=== PATIENT | female | born 1980 | race American Indian/Alaskan Native ===

== ENCOUNTER 2018-03-31 17:08 | Emergency (ER) | payer OTHER, SELFPAY ==
[2018-03-31] VITALS (15 sets, daily range): BP systolic 63–128; BP diastolic 42–94; PULSE 80–108; RESP 18–33; TEMP 36.6; O2SAT 96–100; BMI 26.9
[2018-03-31] MEDS: SODIUM CHLORIDE 0.9% 1,000 ML 1000 ML IV ×2 (17:25→17:55)
[2018-03-31 17:26] LABS: Add Manual Diff / Slide Review NO; Basophils Percent Auto 0.6 % (0-2); Eosinophils Percent Auto 0.6 % (2-4); Hemoglobin 12.7 g/dL (12.0-16.0); Lymphocytes Percent Auto 33.5 % (25-40); Mean Corpuscular HGB Conc 35.4 % (30-36); Mean Corpuscular Hemoglobin 30.8 PG (26-34); Mean Corpuscular Volume 86.9 fL (80-100); Monocytes Percent Auto 4.8 % (3-14); Neutrophils Absolute Auto 5900 /uL (3000-5900); Neutrophils Percent Auto 60.5 % (50-75); Platelet Count 185 X10^3/uL (150-400); Red Blood Cell Count 4.14 X10^6/uL (4.0-5.2); Red Cell Distribution Width 14.3 % (11.6-14.8); White Blood Cell Count 9.8 X10^3/uL (4.5-11.0)
[2018-03-31 17:37] LABS: HEMOLYSIS 16 (0-50)
[2018-03-31 17:38] LABS: BUN Creatinine Ratio 2.5 (6-22); Calcium 7.7 mg/dL (8.4-10.2); Estimated Glomerular Filt Rate > 60.0 mL/min (>60); Glucose 156 mg/dL (70-100); Sodium 130 mmol/L (137-145)
--- NOTE | 2018-03-31 17:39 | ED.SYNCOPE ---
HPI - Syncope <Lima Ervin DO - Last Filed: 04/01/18 07:20> General Chief Complaint: Syncope Stated Complaint: Possible Seizure Time Seen by Provider: 03/31/18 17:12 Source: patient and EMS Limitations: no limitations History of Present Illness HPI narrative: Patient is a 37-year-old female who presents after syncopal episode at a baseball game. She was outside for a number of hours not drinking enough water. She felt extremely faint he does not remember passing out but she did brief stay. There may have been on small seizure like activity however it did not last long. EMS is blood pressure was quite low this systolic in the 60s. She admits to drinking alcohol evening quite a bit. She also does not know when her last menstrual period was she thinks it was about 2 months ago but not sure. She denies any abdominal pain. Related Data Previous Rx's Medication Instructions Recorded sertraline 50 mg PO QDAY #30 tab 08/10/16 norethindrone ac-eth estradiol 1 tab PO Q DAY #3 pac 06/25/17 [Loestrin 1.5/30 (21)] doxycycline hyclate 100 mg PO BID #14 cap 01/22/18 Allergies Allergy/AdvReac Type Severity Reaction Status Date / Time Sulfa (Sulfonamide Allergy Unknown Verified 03/31/18 18:06 Antibiotics) [SULFA (SULFONAMIDE ANTIBIOTICS)] Review of Systems <Lima Ervin DO - Last Filed: 04/01/18 07:20> Review of Systems All systems reviewed & are unremarkable except as noted in HPI and below Constitutional Denies chills, Denies excessive sweating, Denies fatigue, Denies frequent falls, Denies night sweats and Reports weakness Eyes Denies change in vision, Denies eye discharge, Denies irritation and Denies loss of vision Cardiovascular Reports system reviewed and no additional complaints, except as docu, Reports syncope, Denies irregular heart rhythm, Denies dyspnea and Denies dyspnea on exertion Respiratory Denies cough, Denies dyspnea, Denies dyspnea on exertion and Denies wheezing Gastrointestinal Gastrointestinal: Denies abdominal pain, Denies change in bowel habits, Denies diarrhea, Denies nausea and Denies vomiting Musculoskeletal Denies back pain, Denies muscle weakness, Denies numbness and Denies tingling Integumentary/Breasts Denies pruritus, Denies erythema, Denies rash and Denies wounds Neurologic Reports syncope, Denies frequent falls, Denies loss of vision, Denies numbness, Denies tingling and Reports weakness Endocrine Denies excessive sweating and Denies fatigue Allergic/Immunologic Denies wheezing Exam <Lima Ervin DO - Last Filed: 04/01/18 07:20> Initial Vital Signs Initial Vital Signs: Vital Signs Temperature 97.8 F 03/31/18 17:18 Pulse Rate 93 H 03/31/18 17:18 Respiratory Rate 18 03/31/18 17:18 Blood Pressure 110/72 03/31/18 17:18 Pulse Oximetry 100 03/31/18 17:18 Const General: cooperative and well developed Nutritional Appearance: well nourished Orientation: alert, awake, oriented x3 and not confused [facility] Head: normal to inspection, normocephalic and atraumatic Eyes Alignment and Position: alignment normal Eyelids: eyelids normal Conjunctivae: conjunctivae normal Resp Effort & Inspection: normal respiratory effort, able to speak in complete sentences, no respiratory distress and no use of accessory muscles Auscultation: clear to auscultation bilaterally, no rales, no rhonchi and no wheezes Cardio Rate: regular rate Rhythm: regular rhythm Heart Sounds: no click, no gallops, no murmurs and no rubs Pulses: normal peripheral pulses GI Inspection: non-distended Palpation: soft, no hepatosplenomegaly, No guarding, No pulsatile mass and No tender Auscultation: normal bowel sounds Neuro General: alert, oriented x3, gait normal and no focal motor deficits Cranial Nerves: CN's II-XI intact bilaterally and sense of smell intact Speech: speech normal Motor: muscle tone normal throughout and strength 5/5 throughout Sensory Exam: no sensory deficits noted <Navjot Bar DO - Last Filed: 04/01/18 02:55> Initial Vital Signs Initial Vital Signs: Vital Signs Temperature 97.8 F 03/31/18 17:18 Pulse Rate 93 H 03/31/18 17:18 Respiratory Rate 18 03/31/18 17:18 Blood Pressure 110/72 03/31/18 17:18 Pulse Oximetry 100 03/31/18 17:18 Course <Lima Ervin DO - Last Filed: 04/01/18 07:20> Orders Ordered: ED Orders 03/31/18 23:08 Basic Metabolic Panel Stat Discontinued Medications Sodium Chloride (Normal Saline 0.9%) 1,000 mls @ 1,000 mls/hr IV CONT ALEC Last Infusion: 03/31/18 17:55 Dose: 0 mls/hr Admin: 03/31/18 17:25 Dose: 1,000 mls/hr Sodium Chloride (Normal Saline 0.9%) 1,000 mls @ 1,000 mls/hr IV BOLUS ONE Stop: 03/31/18 18:36 Last Infusion: 03/31/18 18:04 Dose: 0 mls/hr Admin: 03/31/18 17:55 Dose: 1,000 mls/hr Potassium Chloride 40 meq/ (Sodium Chloride) 520 mls @ 130 mls/hr IV NOW ONE Stop: 03/31/18 17:40 Last Infusion: 03/31/18 23:39 Dose: 0 mls/hr Infusion: 03/31/18 19:59 Dose: 100 mls/hr Admin: 03/31/18 18:30 Dose: 130 mls/hr Sodium Chloride (Normal Saline 0.9%) 1,000 mls @ 200 mls/hr IV BOLUS ONE Stop: 03/31/18 23:23 Last Infusion: 03/31/18 23:41 Dose: 0 mls/hr Admin: 03/31/18 18:31 Dose: 200 mls/hr Lactated Ringer's (Lactated Ringers) 1,000 mls @ 1,000 mls/hr IV BOLUS ONE Stop: 03/31/18 19:48 Last Infusion: 03/31/18 19:56 Dose: 0 mls/hr Admin: 03/31/18 19:24 Dose: 1,000 mls/hr Lactated Ringer's (Lactated Ringers) 1,000 mls @ 1,000 mls/hr IV BOLUS ONE Stop: 03/31/18 20:51 Last Infusion: 03/31/18 22:05 Dose: 0 mls/hr Admin: 03/31/18 20:06 Dose: 1,000 mls/hr Ondansetron HCl (Zofran) 4 mg IV NOW ONE Stop: 03/31/18 17:40 Last Admin: 03/31/18 17:54 Dose: 4 mg Potassium Chloride (Klor-Con M20) 40 meq PO NOW ONE Stop: 03/31/18 17:40 Last Admin: 03/31/18 20:04 Dose: 40 meq Potassium Chloride (Potassium Chloride) 40 meq PO NOW ONE Stop: 03/31/18 20:37 Last Admin: 03/31/18 20:43 Dose: 40 meq Vital Signs - 8 hr 03/31/18 23:31 Pulse Rate 84 Respiratory Rate 24 Blood Pressure [Left Arm] 128/94 H Pulse Oximetry 96 <Navjot Bar, DO - Last Filed: 04/01/18 02:55> Orders Ordered: ED Orders 03/31/18 23:08 Basic Metabolic Panel Stat Discontinued Medications Sodium Chloride (Normal Saline 0.9%) 1,000 mls @ 1,000 mls/hr IV CONT ALEC Last Infusion: 03/31/18 17:55 Dose: 0 mls/hr Admin: 03/31/18 17:25 Dose: 1,000 mls/hr Sodium Chloride (Normal Saline 0.9%) 1,000 mls @ 1,000 mls/hr IV BOLUS ONE Stop: 03/31/18 18:36 Last Infusion: 03/31/18 18:04 Dose: 0 mls/hr Admin: 03/31/18 17:55 Dose: 1,000 mls/hr Potassium Chloride 40 meq/ (Sodium Chloride) 520 mls @ 130 mls/hr IV NOW ONE Stop: 03/31/18 17:40 Last Infusion: 03/31/18 23:39 Dose: 0 mls/hr Infusion: 03/31/18 19:59 Dose: 100 mls/hr Admin: 03/31/18 18:30 Dose: 130 mls/hr Sodium Chloride (Normal Saline 0.9%) 1,000 mls @ 200 mls/hr IV BOLUS ONE Stop: 03/31/18 23:23 Last Infusion: 03/31/18 23:41 Dose: 0 mls/hr Admin: 03/31/18 18:31 Dose: 200 mls/hr Lactated Ringer's (Lactated Ringers) 1,000 mls @ 1,000 mls/hr IV BOLUS ONE Stop: 03/31/18 19:48 Last Infusion: 03/31/18 19:56 Dose: 0 mls/hr Admin: 03/31/18 19:24 Dose: 1,000 mls/hr Lactated Ringer's (Lactated Ringers) 1,000 mls @ 1,000 mls/hr IV BOLUS ONE Stop: 03/31/18 20:51 Last Infusion: 03/31/18 22:05 Dose: 0 mls/hr Admin: 03/31/18 20:06 Dose: 1,000 mls/hr Ondansetron HCl (Zofran) 4 mg IV NOW ONE Stop: 03/31/18 17:40 Last Admin: 03/31/18 17:54 Dose: 4 mg Potassium Chloride (Klor-Con M20) 40 meq PO NOW ONE Stop: 03/31/18 17:40 Last Admin: 03/31/18 20:04 Dose: 40 meq Potassium Chloride (Potassium Chloride) 40 meq PO NOW ONE Stop: 03/31/18 20:37 Last Admin: 03/31/18 20:43 Dose: 40 meq Reevaluation(s) Reevaluation #1: I have personally interviewed and examined the patient and agree with Dr. Ervin's assessment and plan. She feels a bit better but still has not produced urine. We are hanging are 4th bag of fluid and switched to lactated Ringer's for more balanced fluid approach. She was then able to drink the oral potassium and states it made her throat feel abnormal. She is able to swallow water without difficulty. She has no tongue, lip or throat swelling. She has no difficulty breathing or abnormal rash. Will continue to monitor Time: 20:35 Vital Signs - 8 hr 03/31/18 23:31 Pulse Rate 84 Respiratory Rate 24 Blood Pressure [Left Arm] 128/94 H Pulse Oximetry 96 MDM - Syncope <Lima Ervin, - Last Filed: 04/01/18 07:20> Lab Data Attestation: I reviewed the patient's lab results. Result diagrams: 03/31/18 17:11 03/31/18 23:08 Lab Results 03/31/18 03/31/18 03/31/18 Range/Units 17:11 17:11 17:11 WBC 9.8 (4.5-11.0) X10^3/uL RBC 4.14 (4.0-5.2) X10^6/uL Hgb 12.7 (12.0-16.0) g/dL Hct 36.0 (36-46) % MCV 86.9 (80-100) fL MCH 30.8 (26-34) PG MCHC 35.4 (30-36) % RDW 14.3 (11.6-14.8) % Plt Count 185 (150-400) X10^3/uL Neut % (Auto) 60.5 (50-75) % Lymph % (Auto) 33.5 (25-40) % Burnet % (Auto) 4.8 (3-14) % Eos % (Auto) 0.6 L (2-4) % Baso % (Auto) 0.6 (0-2) % Neut # (Auto) 5900 (7006-9940) /uL Sodium 130 L (137-145) mmol/L Potassium 2.6 L* (3.4-5.1) mmol/L Chloride 87.0 L (98-107) mmol/L Carbon Dioxide 24.0 (22-32) mmol/L BUN 2.0 L (7-17) mg/dL Creatinine 0.80 (0.52-1.04) mg/dL Estimated GFR > 60.0 (>60) mL/min BUN/Creatinine Ratio 2.5 L (6-22) Glucose 156 H (70-100) mg/dL Calcium 7.7 L (8.4-10.2) mg/dL Serum , Qual Negative (Negative) 03/31/18 Range/Units 23:08 WBC (4.5-11.0) X10^3/uL RBC (4.0-5.2) X10^6/uL Hgb (12.0-16.0) g/dL Hct (36-46) % MCV (80-100) fL MCH (26-34) PG MCHC (30-36) % RDW (11.6-14.8) % Plt Count (150-400) X10^3/uL Neut % (Auto) (50-75) % Lymph % (Auto) (25-40) % Burnet % (Auto) (3-14) % Eos % (Auto) (2-4) % Baso % (Auto) (0-2) % Neut # (Auto) (7151-5862) /uL Sodium 130 L (137-145) mmol/L Potassium 4.1 D (3.4-5.1) mmol/L Chloride 98.0 (98-107) mmol/L Carbon Dioxide 21.0 L (22-32) mmol/L BUN < 2.0 L (7-17) mg/dL Creatinine 0.50 L (0.52-1.04) mg/dL Estimated GFR > 60.0 (>60) mL/min BUN/Creatinine Ratio 4.0 L (6-22) Glucose 94 (70-100) mg/dL Calcium 6.8 L (8.4-10.2) mg/dL Serum , Qual (Negative) ECG Data Attestation: I personally reviewed and interpreted this ECG as follows: Prior ECG tracings: not available for review Interpretation: Normal sinus rhythm rate 81 and normal intervals no ST changes normal T-wave changes <Navjot Bar DO - Last Filed: 04/01/18 02:55> Lab Data Lab Results 03/31/18 03/31/18 03/31/18 Range/Units 17:11 17:11 17:11 WBC 9.8 (4.5-11.0) X10^3/uL RBC 4.14 (4.0-5.2) X10^6/uL Hgb 12.7 (12.0-16.0) g/dL Hct 36.0 (36-46) % MCV 86.9 (80-100) fL MCH 30.8 (26-34) PG MCHC 35.4 (30-36) % RDW 14.3 (11.6-14.8) % Plt Count 185 (150-400) X10^3/uL Neut % (Auto) 60.5 (50-75) % Lymph % (Auto) 33.5 (25-40) % Burnet % (Auto) 4.8 (3-14) % Eos % (Auto) 0.6 L (2-4) % Baso % (Auto) 0.6 (0-2) % Neut # (Auto) 5900 (7659-5689) /uL Sodium 130 L (137-145) mmol/L Potassium 2.6 L* (3.4-5.1) mmol/L Chloride 87.0 L (98-107) mmol/L Carbon Dioxide 24.0 (22-32) mmol/L BUN 2.0 L (7-17) mg/dL Creatinine 0.80 (0.52-1.04) mg/dL Estimated GFR > 60.0 (>60) mL/min BUN/Creatinine Ratio 2.5 L (6-22) Glucose 156 H (70-100) mg/dL Calcium 7.7 L (8.4-10.2) mg/dL Serum , Qual Negative (Negative) 03/31/18 Range/Units 23:08 WBC (4.5-11.0) X10^3/uL RBC (4.0-5.2) X10^6/uL Hgb (12.0-16.0) g/dL Hct (36-46) % MCV (80-100) fL MCH (26-34) PG MCHC (30-36) % RDW (11.6-14.8) % Plt Count (150-400) X10^3/uL Neut % (Auto) (50-75) % Lymph % (Auto) (25-40) % Burnet % (Auto) (3-14) % Eos % (Auto) (2-4) % Baso % (Auto) (0-2) % Neut # (Auto) (2924-3165) /uL Sodium 130 L (137-145) mmol/L Potassium 4.1 D (3.4-5.1) mmol/L Chloride 98.0 (98-107) mmol/L Carbon Dioxide 21.0 L (22-32) mmol/L BUN < 2.0 L (7-17) mg/dL Creatinine 0.50 L (0.52-1.04) mg/dL Estimated GFR > 60.0 (>60) mL/min BUN/Creatinine Ratio 4.0 L (6-22) Glucose 94 (70-100) mg/dL Calcium 6.8 L (8.4-10.2) mg/dL Serum , Qual (Negative) Discharge Plan Departure Patient Disposition: Home, Self-Care Clinical Impression: Dehydration, Acute hypokalemia Discharge Date/Time: 03/31/18 23:43 Interventions: ED Discharge Assessment Last Done: 03/31/18 23:42 Instructions: DI for Dehydration -- Adult Prescriptions: No Action sertraline 50 MG tablet 50 mg PO QDAY Qty: 30 RF: 0 norethindrone ac-eth estradiol [Loestrin 1.5/30 (21)] 1.5 MG/30 MCG tablet 1 tab PO Q DAY Qty: 3 RF: 4 doxycycline hyclate 100 MG capsule 100 mg PO BID Qty: 14 RF: 0 ED Cosign/Signout <Lima Ervin DO - Last Filed: 04/01/18 07:20> Sign Out Provider Sign Out Attestation: Patient signed out to Dr. Bar. Patient is having potassium replaced, and continuing all monitored and IV fluids. She is still not urinated after 2 L. she is not .
[2018-03-31 17:40] LABS: Potassium 2.6 mmol/L (3.4-5.1)
[2018-03-31 17:53] LABS: Pregnancy Test Serum,Qual Negative (Negative)
[2018-03-31] MEDS: ONDANSETRON 4 MG/2 ML INJ IV (17:54)
[2018-03-31] MEDS: POTASSIUM CHLORIDE 40 MEQ in SODIUM CHLORIDE 0.9% 500 ML 130 ML IV (18:30)
[2018-03-31] MEDS: SODIUM CHLORIDE 0.9% 1,000 ML 200 ML IV (18:31)
[2018-03-31] MEDS: LACTATED RINGERS 1,000 ML 1000 ML IV ×2 (19:24→20:06)
[2018-03-31] MEDS: POTASSIUM CHLORIDE 20 MEQ TAB 40 MEQ PO (20:04)
--- NOTE | 2018-03-31 20:29 | PC.NURSE ---
pt unable to take po medication. reports always having difficulty swallowing pills. reports feeling throat closing up now making it more difficult to swallow pills. provider notified. pt is able to swallow water. no pitch change in voice, no visible swelling in back of throat.
[2018-03-31] MEDS: POTASSIUM CHLORIDE 20 MEQ/15 ML UDC 40 MEQ PO (20:43)
--- NOTE | 2018-03-31 22:29 | PC.NURSE ---
pt ambulated to the restroom and voided. steady gate, slow pace, no assistive devices.
[2018-03-31 23:24] LABS: Calcium 6.8 mg/dL (8.4-10.2); Estimated Glomerular Filt Rate > 60.0 mL/min (>60); Glucose 94 mg/dL (70-100); HEMOLYSIS < 15 (0-50); Potassium 4.1 mmol/L (3.4-5.1); Sodium 130 mmol/L (137-145)
[2018-03-31 23:25] LABS: Blood Urea Nitrogen < 2.0 mg/dL (7-17)
== END 2018-03-31 23:43 | disposition home or self-care (01) ==
PROVIDERS: Emergency Medicine; Emergency Provider Emergency Medicine
DX: E86.0 Dehydration (principal); E87.6 Hypokalemia
CPT/HCPCS: 36415; 80048; 82962; 84703; 85025; 93005; 96365; 96366; 99284; 99285; J2405; J3480

== ENCOUNTER 2018-11-09 18:20 | Emergency (ER) | payer OTHER, SELFPAY ==
[2018-11-09 18:32] VITALS: BP 127/81; PULSE 64; RESP 16; TEMP 37; O2SAT 100; BMI 24.1
--- NOTE | 2018-11-09 19:08 | PC.NURSE ---
Assisted Dr Bar for pelvic exam to remove tampon. Pt tolerated the procedure and old tampon removed.
--- NOTE | 2018-11-09 23:32 | ED_ITS ---
HPI - Female Genitourinary General Chief complaint: Urogenital-Female Stated complaint: women problems Time Seen by Provider: 11/09/18 18:50 Source: patient Mode of arrival: ambulatory Limitations: no limitations History of Present Illness HPI Narrative: 38-year-old, nonsmoking otherwise healthy female presents by herself to the emergency department for evaluation of pelvic discomfort. She had a tampon placed and had for gotten was there proceed to have intercourse. This was yesterday. She denies any vaginal bleeding or discharge. She denies any back pain or systemic findings such as fever, chills, rash or vomiting. She was unable to remove it at home. She denies pain, but can feel that the tampon is still there. Onset (ago): day(s) Patient : No Associated symptoms: denies other symptoms Related Data Home Medications Medication Instructions Recorded Confirmed lisinopril 11/09/18 lisinopril 11/09/18 Previous Rx's Medication Instructions Recorded sertraline 50 mg PO QDAY #30 tab 08/10/16 doxycycline hyclate 100 mg PO BID #14 cap 01/22/18 norethindrone acetate-ethinyl 1 tab PO Q DAY #3 pac 05/07/18 estradiol 1.5 mg-30 mcg tablet Allergies Allergy/AdvReac Type Severity Reaction Status Date / Time Sulfa (Sulfonamide Allergy Unknown Verified 11/09/18 18:36 Antibiotics) [SULFA (SULFONAMIDE ANTIBIOTICS)] Review of Systems Review of Systems All systems reviewed & are unremarkable except as noted in HPI and below Constitutional Denies chills, Denies fever(s), Denies lethargy and Denies weakness Eyes Denies change in vision, Denies eye discharge, Denies irritation and Denies loss of vision ENT Ears, Nose, Mouth, and Throat: Denies change in voice, Denies neck pain and Denies sore throat Cardiovascular Denies chest pain, Denies irregular heart rhythm, Denies lightheadedness, Denies palpitations, Denies dyspnea, Denies dyspnea on exertion and Denies orthopnea Respiratory Denies cough, Denies dyspnea, Denies dyspnea on exertion and Denies wheezing Gastrointestinal Gastrointestinal: Denies abdominal pain, Denies change in bowel habits, Denies diarrhea, Denies nausea and Denies vomiting Genitourinary Denies hematuria, Denies flank pain, Denies urinary incontinence and Denies urinary urgency Musculoskeletal Denies neck pain Integumentary/Breasts Denies pruritus, Denies erythema, Denies rash and Denies wounds Neurologic Denies confusion, Denies loss of vision and Denies weakness Psychiatric Denies anxiety, Denies confusion, Denies depression, Denies homicidal ideation and Denies suicidal ideation Endocrine Denies palpitations Hematologic/Lymphatic Denies easy bruising Allergic/Immunologic Denies wheezing [facility] Medical History Hypertension (Acute) Social History Smoking Status: Current every day smoker Exam Narrative Exam Narrative: GEN: AOx3 and in mild distress EYES: Pupils are equal, round, and reactive to light and accommodation. Extraoccular muscles are intact bilaterally. There is no subconjunctival hemorrhage or exudate. CHEST: Lungs are clear to auscultation bilaterally and free of wheezes, rales, or rhonchi. Heart rate is regular rhythm, there are no murmurs, clicks, rubs, or gallops. There is no chest wall tenderness. ABD: Abdomen is soft and nontender. There is no guarding or rebound. Bowel sounds are normal in all 4 quadrants. There is no mass or organomegaly. PELVIC: tampon easily removed. No blood or discharge. No pain to patient. IUD strings visualized in cervical OS EXT: Full painless ROM of all extremities with no loss of sensation or strength. SKIN: Warm, pink, and dry. No erythema or rash Initial Vital Signs Initial Vital Signs: Vital Signs Temperature 98.6 F 11/09/18 18:32 Pulse Rate 64 11/09/18 18:32 Respiratory Rate 16 11/09/18 18:32 Blood Pressure 127/81 11/09/18 18:32 Pulse Oximetry 100 11/09/18 18:32 Course Vital Signs - 8 hr 11/09/18 18:32 Temperature 98.6 F Pulse Rate 64 Respiratory Rate 16 Blood Pressure 127/81 Pulse Oximetry 100 MDM - Female Genitourinary MDM Narrative Medical decision making narrative: no bleeding, discharge or pain. No systemic symptoms to suggest TSS or other. Patient given return precautions and verbalized her understanding Discharge Plan Departure Patient Disposition: Home Clinical Impression: Acute foreign body of vagina Discharge Date/Time: 11/09/18 19:18 Interventions: ED Discharge Assessment Last Done: 11/09/18 19:17 Instructions: DI for Foreign Body in Vagina-Adult Activity Restrictions/Additional Instructions: *You have been diagnosed with [ Acute Vaginal Foreign Body ] *What to do: *Take medications as directed *Follow up with your primary care provider in 2-3 days, call for an appointment. Let them know you were seen in the Emergency Department and that we ask that you be seen in follow up *Return to ER if you should have any new, worsening or concerning symptoms , such as [fever >101F, significant discharge, shaking chills, persistent vomiting or other bothersome symptoms] Prescriptions: No Action sertraline 50 MG tablet 50 mg PO QDAY Qty: 30 RF: 0 doxycycline hyclate 100 MG capsule 100 mg PO BID Qty: 14 RF: 0 norethindrone ac-eth estradiol [Loestrin 1.04/03 (21)] 1.5-30 mg-mcg tablet 1 tab PO Q DAY Qty: 3 RF: 4 lisinopril 40 mg tablet RF: 0 lisinopril 40 mg tablet RF: 0
== END 2018-11-09 19:18 | disposition home or self-care (01) ==
PROVIDERS: Emergency Provider Emergency Medicine
DX: R10.2 Pelvic and perineal pain (principal); T19.2XXA Foreign body in vulva and vagina, initial encounter
CPT/HCPCS: 99283

== ENCOUNTER 2019-02-25 12:45 | Outpatient (RCR) | payer OTHER, SELFPAY ==
[2019-02-11 12:40] VITALS: BP 110/80; BP 116/82
--- NOTE | 2019-02-11 14:00 | PT.OIE ---
Current Diagnoses Hydrocephalus, unspecified (02/11/19) Cerebral infarction, unspecified (02/11/19) Muscle weakness (generalized) (02/11/19) Unspecified abnormalities of gait and mobility (02/11/19) Past Medical History (Last Reviewed 11/09/18 @ 23:33 by Navjot Bar DO) Hypertension (Acute) Provider Visit Care Team Role Provider Type Brenda Fu MD Primary Care Provider Non-Staff Specialty: Family Practice Address: [address] [place] [address], [id number] Email: Other Providers Specialty: Address: Phone: Fax: Email: Constance Esqueda MD Attending Provider Physician Specialty: Psychiatry Address: [address] [place] [address], [place] [address], [place], [address] Email: Physical Therapy Initial Evaluation PT-OP-A Visit Information Start: 01/26/19 12:42 Freq: Status: Active Protocol: Document 02/11/19 12:40 BS (Rec: 02/11/19 12:42 BS [id number]) Out-Patient Physical Therapy Visit Information Visit Information Visit Type Initial Evaluation Visit Start Time 12:45 Visit Stop Time 13:30 Total Visit Minutes 45 Visit Number 1 Precautions Precautions dizziness and lightheadness with activity. Possible hydrocephalus revealed with head CT, pending specialist evaluation 02/24/19. Recent cardiac echocardiogram revealed possible patent foramen ovale. PT-OP-B Current Condition Start: 01/26/19 12:42 Freq: Status: Active Protocol: Document 02/11/19 12:40 BS (Rec: 02/11/19 12:42 BS [id number]) Current Condition History of Current Condition Onset Date 12/04/18 Current Complaints R sided weakness, dizziness, and fatigue History of Current Condition Pt is a 38 year old female status post CVA on 11/28/18. Pt complains of subsequent R sided weakness, muscle spasms, speech and memory difficulties, postural instability, dizziness/ lightheadedness, and increased levels of fatigue with normal daily activities. She also reports changes in proprioception and sensation in LLE. Following the stroke, pt states that she was so weak and fatigued that she was not able to leave her home and could not tolerate therapy at that time. She is currently starting physical therapy, occupational therapy, and speech therapy at [facility]. 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 She reports that she has returned to normal working hours, but with increased levels of fatigue. Prior Treatments and Tests No prior physical therapy. Pt has undergone treatment for alcoholism and reports being sober since April 2019. Future Testing and Treatments Planned Assess DGI as tolerated by pt . Unable to complete all of it today d/t dizziness. Developmental History Developmental History Home/Work environment: Single level home, no LOLY, lives with 2 sons. 1 flight of stairs with x2 handrail at work. Treatment Goals Patient/Caregiver Goals to feel more confident with balance and walking and not get as tired with normal activity. to return to yoga and exercise program. 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 Baseline Function- Recreation/Hobbies Pt reports that prior to stroke she was working out at the gym and doing yoga independently. She states that prior to the stroke, she has experienced occasional dizziness for years which sometimes impacted her ability to perform ADLs and gym workouts. Current Functional Impairments (Reported) Functional Limitations- ADL's decreased activity tolerance with ADLS such as cooking, cleaning, and caring for 2 sons. Unable to sit/stand for greater than 1 hour at a time due to fatigue and B LE weakness. Functional Limitations- Mobility/Gait Dizziness with walking and postural changes such as rising from bed in morning and transitioning from sit to stand. Pt reports her walking distance and stair ascent/ descent is most limited by fatigue and muscle weakness. Functional Limitations- Work/School Unable to sit/stand greater than 1 hour at a time at work due to generalized muscle aches and spasms. Increased levels of fatigue and postural instability with 1 flight of stairs to enter office at work . Functional Limitations- Recreation/ Pt unable to return to yoga Hobbies and workout regimen at gym. Pt advised not to return to independent exercise until further evaluation by specialist regarding CT findings. Personal Factors Other Personal Factors That May Effect history of alcohol abuse ( Therapy/Recovery sober since April 2019), depression, alcohol-withdrawal related seizure, HTN, and HAs . PT-OP-C Subjective Start: 01/26/19 12:42 Freq: Status: Active Protocol: Document 02/11/19 12:40 BS (Rec: 02/11/19 16:57 BS [email or web address]) OP-PT Subjective Patient Comments Patient Comments I have gained back a lot of strength since my stroke but still feel weak and off balance Patient Reported Progress Improving OP-PT Pain Assessment Comments Pain Comments Pt denies pain per se, but states that she has generalized aching into B UE/ LE muscles following fatigue. She also states she has had some upper back pain with poor posture prior to stroke. PT-OP-D Balance Start: 01/26/19 12:42 Freq: Status: Active Protocol: Document 02/11/19 12:40 BS (Rec: 02/11/19 16:57 BS [email or web address]) OP-PT Balance Assessment Sitting Balance Static Sitting Balance Ability Normal Dynamic Sitting Balance Ability Good Sitting Balance Comments Pt required stabilization with single UE during LE MMT when sitting at edge of plinth. Otherwise she appeared to have good sitting balance. Standing Balance Static Standing Balance Ability Normal Dynamic Standing Balance Ability Fair Device Used No AD Standing Balance Comments Rhomberg, Sharpened Rhomberg, and tandem balance testing completed. Increased challenge with tandem balance. Plan to formally assess single limb balance next session. Balance Tests Romberg Romberg Maintained position for 30 sec without LOB. EO, EC. Single Limb Standing Single Limb- Right not assessed today. Single Limb- Left not assessed today. Tandem Tandem Standing Maintained position for 30 sec without LOB. Other Other Balance Tests Performed Increased medial/lateral sway and ankle strategy to maintain balance with tandem standing, but able to maintain position for 30 sec without LOB, SBA. In tandem with EC, pt unable to maintain for greater than 10 seconds, requiring Min A to steady pt. Diogenes Fall Scale Copyright Permission Diogenes WHITT, Diogenes RM, [place]. Development of a scale to identify the fall- prone patient. Can J Aging 1989;8;366-7. Jackelyn Shetty (2009). Preventing patient falls. (2nd ed). [place]: [place]. PT-OP-E Functional Tests Start: 01/26/19 12:42 Freq: Status: Active Protocol: Document 02/11/19 12:40 BS (Rec: 02/11/19 16:57 BS [email or web address]) Functional Tests 10 Meter Walk Test Distance 10 meter Device Used No AD Comments 3 seconds Apley's Scratch Test Action 1: The subject is instructed to touch the opposite shoulder with his/her hand. This motion checks Glenohumeral adduction, internal rotation , horizontal adduction and scapular protraction Action 2: The subject is instructed to place his/her arm overhead and reach behind the neck to touch his/her upper back. This motion checks Glenohumeral abduction, external rotation and scapular upward rotation and elevation. Action 3: The subject puts his/her hand on the lower back and reaches upward as far as possible. This motion checks glenohumeral adduction, internal rotation and scapular retraction with downward rotation Action 3- Left LUE to T7 Action 3- Right RUE to T10 Dynamic Gait Index (DGI) Score Unable to complete due to dizziness. PT-OP-F Manual Assessment Start: 01/26/19 12:42 Freq: Status: Active Protocol: Document 02/11/19 12:40 BS (Rec: 02/11/19 16:57 BS [email or web address]) Manual Assessments Joint Mobility Assessment Joint Mobility Assessment PROM bilateral hip, knee, flexion ROM WFL and pain-free. Mild to moderate extensor tone noted in LLE. Gross AROM bilateral shoulder flex, abduction, IR/ER, extension WFL and pain-free. PT-OP-G Mobility & Gait Start: 01/26/19 12:42 Freq: Status: Active Protocol: Document 02/11/19 12:40 BS (Rec: 02/11/19 16:57 BS [email or web address]) OP Mobility Evaluation Bed Mobility Supine to and from Sit Independent, use of B UEs Transfers Sit to Stand Independent, use of B UEs. Bed to Chair Transfers Independent without use of Ad. OP Gait Assessment Gait Gait Assistance Required: Independent Able to Maintain Weight Bearing Status Yes During Gait Assistive Devices Assistive Device None Orthotic/Prosthetic Devices or Brace: No Gait Deviations General Gait Pattern Decreased Stride Length Factors Limiting Gait Function Factors Limiting Gait Function Decreased Activity Tolerance Decreased Strength Comments Gait Comments Dizziness with gait and horizontal/vertical head movement during DGI today. R ankle DF weakness noted with slight foot drop during swing phase. Stair Climbing Evaluation Comments Stair Climbing Comments Did not formally assess during IE. Pt reports she is able to ascent/descend stairs without use of handrail but feels B LE weakness and fatigue with 1 flight up to office. PT-OP-H Neuro Start: 01/26/19 12:42 Freq: Status: Active Protocol: Document 02/11/19 12:40 BS (Rec: 02/11/19 16:57 BS [email or web address]) Sensation Evaluation Gross Sensation Gross Sensation Left LE Impaired Comments Summary Comments With light touch and sensation testing to B LEs, pt able to feel light touch but states that it feels different than same testing to RLE. With deep pressure testing, pt reported feeling less pressure with testing to entire LLE as compared to RLE. Muscle Tone Tone Assessment Right Lower Extremity Flexor Tone Description Normal Extensor Tone Description Mild Hypertonicity Rigidity Muscle Tone Comments Extensor hypertonicity and spasticity with passive hip flexion, ankle DF, and knee flexion. Tone increased with quick stretch. Vital Signs Blood Pressure Standing Blood Pressure (90/60-120/80 mmHg) 110/80 Blood Pressure Source Manual Cuff Right Upper Extremity Sitting Blood Pressure (90/60-120/80 mmHg) 116/82 H Blood Pressure Source Manual Cuff Right Upper Extremity Comments Vital Signs Comments BP taken in sitting following complaints of dizziness during DHI, 108/70. Terminated DHI and will complete during next visit as tolerated. PT-OP-J Posture/Palpation/Skin Start: 01/26/19 12:42 Freq: Status: Active Protocol: Document 02/11/19 12:40 BS (Rec: 02/11/19 16:57 BS [email or web address]) Posture Evaluation Comments Posture Comments In sitting, pt presents with forward head and rounded shoulders. Pt appears to equally weightbear through B LEs in standing. Palpation Assessment Location One Palpation Details No pain to palpation of B UEs, or thoracic paraspinals. PT-OP-K Range of Motion Start: 01/26/19 12:42 Freq: Status: Active Protocol: Document 02/11/19 12:40 BS (Rec: 02/11/19 16:57 BS [email or web address]) Shoulder Goniometric Range of Motion Shoulder Measured in Degrees Left Shoulder ROM WFL Yes Shoulder ROM Limitations Comments Bilateral shoulder AROM flexion, extension, abduction, IR/ER all grossly WFL and pain-free. PT-OP-M Strength Start: 01/26/19 12:42 Freq: Status: Active Protocol: Document 02/11/19 12:40 BS (Rec: 02/11/19 16:57 BS [email or web address]) Shoulder Strength Shoulder Manual Muscle Testing Right Flexion 4 Good Extension 5 Normal Abduction (C5) 4 Good External Rotation 5 Normal Internal Rotation 5 Normal Comments All strength testing pain-free . Left Flexion 5 Normal Extension 5 Normal Abduction (C5) 5 Normal External Rotation 5 Normal Internal Rotation 5 Normal Comments All strength testing pain-free . Hip Strength Hip Manual Muscle Testing Right Flexion (L2) 4 Good External Rotation 4+ Good+ Internal Rotation 4+ Good+ Left Flexion (L2) 5 Normal External Rotation 5 Normal Internal Rotation 5 Normal Knee Strength Knee Manual Muscle Testing Right Flexion (S2) 5 Normal Extension (L3) 5 Normal Left Flexion (S2) 5 Normal Extension (L3) 5 Normal Ankle/Foot Strength Ankle and Foot Manual Muscle Testing Right Dorsiflexion (L4) 4 Good Left Dorsiflexion (L4) 5 Normal PT-OP-Q Treatments Start: 01/26/19 12:42 Freq: Status: Active Protocol: Document 02/11/19 12:40 BS (Rec: 02/11/19 16:57 BS [email or web address]) Self-Care/Home Management Treatment Education Patient Education Safety Other Education Pt advised to not return to normal workout routine and yoga until evaluation by hydrocephalus specialist apt . Educated to avoid positions that increase intracranial pressure such as head down and to avoid valsalva maneuver during exercise. Pt education provided to avoid quick postural changes and taking time to acclimate to a new position to avoid dizziness/ lightheadedness and prevention of falls. PT-OP-T Assessment and Plan Start: 01/26/19 12:42 Freq: Status: Active Protocol: Document 02/11/19 12:40 BS (Rec: 02/11/19 16:57 BS [email or web address]) Physical Therapy Assessment Rehab Potential Rehabilitation Potential Good Evaluation Complexity Number of Personal Factors/Comorbidities 3 or More Number of Body Systems Impaired 1-2 Clinical Presentation at Evaluation Evolving Impairments Impairments Activity Tolerance Balance Coordination Functional Activities Functional Mobility Gait Pain Posture ROM Sensation Strength Tone Other Concerns Fall Risk increased fall risk with dizziness/lightheadednesss Barriers to Rehabilitation Multiple risk factors for stroke reoccurence (HTN, alcohol use, smoking), possible hydrocephalus and patent foramen ovale pending further evaluation. Goals Three Impairment Activity Tolerance Short Term Goal (STG) Pt to subjectively report improvements in performing activities of daily living with less generalized fatigue so that she is able to return to level of function prior to stroke. STG Duration 6 weeks Jail Goal (LTG) Pt to ambulate with vertical/ horizontal head movement without experiencing signs/ symptoms of dizziness to improve safety during community ambulation and reduce risk of falls. LTG Duration 10-12 weeks Two Impairment strength Short Term Goal (STG) MMT of R hip flexion, ankle PF , and R shoulder flexion to improve to 5/5, demonstrating equal strength of R and L side /recovery of strength post CVA . STG Duration 10-12 weeks Protozoology Teacher Goal (LTG) DGI score improvement. Will update pending completion of Dynamic Gait Index (DGI) next visit. LTG Duration 10-12 weeks One Impairment HEP Short Term Goal (STG) Pt will become independent with an HEP in order to maximize rehabilitation potential outside of formal PT sessions. STG Duration 3 weeks Protozoology Teacher Goal (LTG) Pt will perform standing balance in tandem, EC, for >30 seconds with appropriate ankle strategies and no LOB for improved safety with ambulation in low light settings. LTG Duration 10-12 weeks Assessment Summary Assessment Pt is a 38 year old female status post CVA on 11/28/2018. Pt presents with subsequent R sided weakness, dizziness, dynamic postural instability, LLE sensory impairments, and decreased ability to perform daily activities due to generalized fatigue. Pt benefits from skilled physical therapy to address R lower extremity weakness ( occupational therapy plans to address UE strengthening), dizziness, dynamic balance and gait impairments, and to improve overall activity tolerance to promote return to prior level of function without limitation. Physical Therapy Plan Frequency and Duration Frequency of Treatment 2x/Week Duration of Treatment 10-12 weeks Plan of Care Start Date 02/11/19 Plan of Care End Date 05/06/19 Therapeutic Interventions Therapeutic Interventions Balance Training Canalithic Repositioning Coordination Training Gait Training Home Exercise Program Manual Therapy Neuromuscular Re-education Patient/Caregiver Education Self-Care/Home Management Therapeutic Activities Therapeutic Exercises Vestibular Rehabilitation Next Visit Focus/Plan Next Note Type Treatment Note Next Visit Plan Complete Dynamic Gait Index as tolerated by pt and formally assess single limb stance, joint proprioception, and sensation in feet. Have pt complete Dizziness Handicap Inventory (DHI) and/or Lower Extremity Functional Scale questionnaire. Add goals for DHI and single limb balance. Begin with B LE strengthening program.
--- NOTE | 2019-02-14 16:27 | PT.OTN ---
Current Diagnoses Hydrocephalus, unspecified (02/14/19) Cerebral infarction, unspecified (02/14/19) Unspecified abnormalities of gait and mobility (02/14/19) Physical Therapy Treatment Note PT-OP-A Visit Information Start: 01/26/19 12:42 Freq: Status: Active Protocol: Document 02/14/19 13:44 BS (Rec: 02/14/19 14:09 BS [id number]) Out-Patient Physical Therapy Visit Information Visit Information Visit Type Treatment Note Visit Start Time 12:45 Visit Stop Time 13:30 Total Visit Minutes 45 Visit Number 2 PT-OP-B Current Condition Start: 01/26/19 12:42 Freq: Status: Active Protocol: Document 02/11/19 12:40 BS (Rec: 02/11/19 12:42 BS [id number]) Current Condition History of Current Condition Onset Date 12/04/18 Current Complaints R sided weakness, dizziness, and fatigue History of Current Condition Pt is a 38 year old female status post CVA on 11/28/18. Pt complains of subsequent R sided weakness, muscle spasms, speech and memory difficulties, postural instability, dizziness/ lightheadedness, and increased levels of fatigue with normal daily activities. She also reports changes in proprioception and sensation in LLE. Following the stroke, pt states that she was so weak and fatigued that she was not able to leave her home and could not tolerate therapy at that time. She is currently starting physical therapy, occupational therapy, and speech therapy at [facility]. 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 She reports that she has returned to normal working hours, but with increased levels of fatigue. Prior Treatments and Tests No prior physical therapy. Pt has undergone treatment for alcoholism and reports being sober since April 2019. Future Testing and Treatments Planned Assesss DGI as tolerated by pt . Unable to complete all of it today d/t dizziness. Developmental History Developmental History Home/Work environment: Single level home, no LOLY, lives with 2 sons. 1 flight of stairs with x2 handrail at work. Treatment Goals Patient/Caregiver Goals to feel more confident with balance and walking and not get as tired with normal activity. to return to yoga and exercise program. 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 Baseline Function- Recreation/Hobbies Pt reports that prior to stroke she was working out at the gym and doing yoga independently. She states that prior to the stroke, she has experienced occasional dizziness for years which sometimes impacted her ability to perform ADLs and gym workouts. Current Functional Impairments (Reported) Functional Limitations- ADL's decreased activity tolerance with ADLS such as cooking, cleaning, and caring for 2 sons. Unable to sit/stand for greater than 1 hour at a time due to fatigue and B LE weakness. Functional Limitations- Mobility/Gait Dizziness with walking and postural changes such as rising from bed in morning and transitioning from sit to stand. Pt reports her walking distance and stair ascent/ descent is most limited by fatigue and muscle weakness. Functional Limitations- Work/School Unable to sit/stand greater than 1 hour at a time at work due to generalized muscle aches and spasms. Increased levels of fatigue and postural instability with 1 flight of stairs to enter office at work . Functional Limitations- Recreation/ Pt unable to return to yoga Hobbies and workout regimen at gym. Pt advised not to return to independent exercise until further evaluation by specialist regarding CT findings. Personal Factors Other Personal Factors That May Effect history of alcohol abuse ( Therapy/Recovery sober since April 2019), depression, alcohol-withdrawal related seizure, HTN, and HAs . PT-OP-C Subjective Start: 01/26/19 12:42 Freq: Status: Active Protocol: Document 02/14/19 13:44 BS (Rec: 02/14/19 14:09 BS [id number]) OP-PT Subjective Patient Comments Patient Comments I felt a little depressed after the last apt because I was so fatigued with the testing that we did. Patient Questionnaires Lower Extremity Functional Scale LEFS Score 41 LEFS Impairment 40 to 59% Impaired (Score 32- 47) PT-OP-D Balance Start: 01/26/19 12:42 Freq: Status: Active Protocol: Document 02/14/19 13:44 BS (Rec: 02/14/19 14:09 BS [id number]) Balance Tests Single Limb Standing Single Limb- Right 7 sec Single Limb- Left 5 sec PT-OP-E Functional Tests Start: 01/26/19 12:42 Freq: Status: Active Protocol: Document 02/11/19 12:40 BS (Rec: 02/11/19 16:57 BS [email or web address]) Functional Tests 10 Meter Walk Test Distance 10 meter Device Used No AD Comments 3 seconds Apley's Scratch Test Action 1: The subject is instructed to touch the opposite shoulder with his/her hand. This motion checks Glenohumeral adduction, internal rotation , horizontal adduction and scapular protraction Action 2: The subject is instructed to place his/her arm overhead and reach behind the neck to touch his/her upper back. This motion checks Glenohumeral abduction, external rotation and scapular upward rotation and elevation. Action 3: The subject puts his/her hand on the lower back and reaches upward as far as possible. This motion checks glenohumeral adduction, internal rotation and scapular retraction with downward rotation Action 3- Left LUE to T7 Action 3- Right RUE to T10 Dynamic Gait Index (DGI) Score Unable to complete due to dizziness. PT-OP-F Manual Assessment Start: 01/26/19 12:42 Freq: Status: Active Protocol: Document 02/11/19 12:40 BS (Rec: 02/11/19 16:57 BS [email or web address]) Manual Assessments Joint Mobility Assessment Joint Mobility Assessment PROM bilateral hip, knee, flexon ROM WFL and pain-free. Mild to moderate extensor tone noted in LLE. Gross AROM bilateral shoulder flex, abduction, IR/ER, extension WFL and pain-free. PT-OP-G Mobility & Gait Start: 01/26/19 12:42 Freq: Status: Active Protocol: Document 02/11/19 12:40 BS (Rec: 02/11/19 16:57 BS [email or web address]) OP Mobility Evaluation Bed Mobility Supine to and from Sit Indpendent, use of B UEs Transfers Sit to Stand Independent, use of B UEs. Bed to Chair Transfers Independent without use of Ad. OP Gait Assessment Gait Gait Assistance Required: Independent Able to Maintain Weight Bearing Status Yes During Gait Assistive Devices Assistive Device None Orthotic/Prosthetic Devices or Brace: No Gait Deviations General Gait Pattern Decreased Stride Length Factors Limiting Gait Function Factors Limiting Gait Function Decreased Activity Tolerance Decreased Strength Comments Gait Comments Dizziness with gait and horizontal/vertical head movement during DGI today. R ankle DF weakness noted with slight foot drop during swing phase. Stair Climbing Evaluation Comments Stair Climbing Comments Did not formally assess during IE. Pt reports she is able to ascent/descend stairs without use of handrail but feels B LE weakness and fatigue with 1 flight up to office. PT-OP-H Neuro Start: 01/26/19 12:42 Freq: Status: Active Protocol: Document 02/14/19 13:44 BS (Rec: 02/14/19 14:09 BS [id number]) Sensation Evaluation Comments Summary Comments Sensation testing completed today with results different than IE. Pt able to feel light touch in all LE dermatomes but reports that it feels diminished on the RLE and feels less pressure on RLE with deep pressure testing. Sensation in tact with testing to B palmar and dorsal aspect of feet. Coordination Evaluation Lower Extremity Tests Right Foot Tapping Test Normal Performance Lower Extremity Fixation/Position Normal Performance Holding Test Left Foot Tapping Test Normal Performance Lower Extremity Fixation/Position Normal Performance Holding Test PT-OP-J Posture/Palpation/Skin Start: 01/26/19 12:42 Freq: Status: Active Protocol: Document 02/11/19 12:40 BS (Rec: 02/11/19 16:57 BS [email or web address]) Posture Evaluation Comments Posture Comments In sitting, pt presents with forward head and rounded shoulders. Pt appears to equally weightbear through B LEs in standing. Palpation Assessment Location One Palpation Details No pain to palpation of B UEs, or thoracic paraspinals. PT-OP-K Range of Motion Start: 01/26/19 12:42 Freq: Status: Active Protocol: Document 02/11/19 12:40 BS (Rec: 02/11/19 16:57 BS [email or web address]) Shoulder Goniometric Range of Motion Shoulder Measured in Degrees Left Shoulder ROM WFL Yes Shoulder ROM Limitations Comments Bilateral shoulder AROM flexion, extension, abduction, IR/ER all grossly WFL and pain-free. PT-OP-M Strength Start: 01/26/19 12:42 Freq: Status: Active Protocol: Document 02/11/19 12:40 BS (Rec: 02/11/19 16:57 BS [email or web address]) Shoulder Strength Shoulder Manual Muscle Testing Right Flexion 4 Good Extension 5 Normal Abduction (C5) 4 Good External Rotation 5 Normal Internal Rotation 5 Normal Comments All strength testing pain-free . Left Flexion 5 Normal Extension 5 Normal Abduction (C5) 5 Normal External Rotation 5 Normal Internal Rotation 5 Normal Comments All strength testing pain-free . Hip Strength Hip Manual Muscle Testing Right Flexion (L2) 4 Good External Rotation 4+ Good+ Internal Rotation 4+ Good+ Left Flexion (L2) 5 Normal External Rotation 5 Normal Internal Rotation 5 Normal Knee Strength Knee Manual Muscle Testing Right Flexion (S2) 5 Normal Extension (L3) 5 Normal Left Flexion (S2) 5 Normal Extension (L3) 5 Normal Ankle/Foot Strength Ankle and Foot Manual Muscle Testing Right Dorsiflexion (L4) 4 Good Left Dorsiflexion (L4) 5 Normal PT-OP-Q Treatments Start: 01/26/19 12:42 Freq: Status: Active Protocol: Document 02/14/19 13:44 BS (Rec: 02/14/19 14:09 BS [id number]) Therapeutic Exercises Sitting Exercises 1 Sitting Exercise Name Diaphragmatic Breathing Comments VCs to minimize chest breathing pattern, belly breathing TCs Standing Exercises 4 Standing Exercise Name Hamstring Curls Equipment Used // bars Reps/Minutes 2x10 Comments VCs deep breathing 3 Standing Exercise Name Calf Raises and Toe Raises Equipment Used // bars Reps/Minutes 2x10 Comments VCs deep breathing 2 Standing Exercise Name Hip abduction Side bilateral Equipment Used // bars Reps/Minutes 2x10 Comments VCs deep breathing 1 Standing Exercise Name Hip extension Side bilateral Equipment Used // bars Reps/Minutes 2x10 Comments VCs deep breathing Neuro Re-Education Treatment Balance Activities 2 Details DGI. Gait + horizontal/ vertical head turns, step over /around hurdles Comments No LOB or postural instability with dynamic gait with stepping over and around hurdles. Pt c/o brief (5 sec) dizziness with head turns up/ down. 1 Details Single Limb Balance Equipment // bars Comments 3 trials each leg. Best RLE 7 sec, 5 sec LLE. PT-OP-T Assessment and Plan Start: 01/26/19 12:42 Freq: Status: Active Protocol: Document 02/14/19 13:44 BS (Rec: 02/14/19 14:09 BS [id number]) Physical Therapy Assessment Assessment Summary Assessment Pt was able to complete B LE strengthening exercises in parallel bars today for safety . She did complain of dizziness following the completion of each exercise and reports it lasts only a few seconds. Pt was educated in diaphragmatic breathing techniques during exercise and at rest. Pt asked about returning to normal exercise regimen but advised to wait for further evaluation from hydrocephalus specialist. She is okay to perform HEP as prescribed today for B LE strengthening. Assessed joint proprioception and sensation of B feet and LEs. Pt completed LEFS today. Physical Therapy Plan Next Visit Focus/Plan Next Note Type Treatment Note Next Visit Plan Continue B LE strengthening exercises, assess stairs ascent/descent in order to complete DGI. Score and set goal. Monitor dizziness and breathing during exercise. DGI subscores available in paper chart. Stair portion remaining .
--- NOTE | 2019-02-21 14:00 | PT.OTN ---
Current Diagnoses Hydrocephalus, unspecified (02/21/19) Cerebral infarction, unspecified (02/21/19) Unspecified abnormalities of gait and mobility (02/21/19) Physical Therapy Treatment Note PT-OP-A Visit Information Start: 01/26/19 12:42 Freq: Status: Active Protocol: Document 02/21/19 13:31 BS (Rec: 02/21/19 13:43 BS [id number]) Out-Patient Physical Therapy Visit Information Visit Information Visit Type Treatment Note Visit Start Time 12:45 Visit Stop Time 13:25 Total Visit Minutes 40 Visit Number 3 PT-OP-B Current Condition Start: 01/26/19 12:42 Freq: Status: Active Protocol: Document 02/11/19 12:40 BS (Rec: 02/11/19 12:42 BS [id number]) Current Condition History of Current Condition Onset Date 12/04/18 Current Complaints R sided weakness, dizziness, and fatigue History of Current Condition Pt is a 38 year old female status post CVA on 11/28/18. Pt complains of subsequent R sided weakness, muscle spasms, speech and memory difficulties, postural instability, dizziness/ lightheadedness, and increased levels of fatigue with normal daily activities. She also reports changes in proprioception and sensation in LLE. Following the stroke, pt states that she was so weak and fatigued that she was not able to leave her home and could not tolerate therapy at that time. She is currently starting physical therapy, occupational therapy, and speech therapy at [facility]. 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 She reports that she has returned to normal working hours, but with increased levels of fatigue. Prior Treatments and Tests No prior physical therapy. Pt has undergone treatment for alcoholism and reports being sober since April 2019. Future Testing and Treatments Planned Assesss DGI as tolerated by pt . Unable to complete all of it today d/t dizziness. Developmental History Developmental History Home/Work environment: Single level home, no LOLY, lives with 2 sons. 1 flight of stairs with x2 handrail at work. Treatment Goals Patient/Caregiver Goals to feel more confident with balance and walking and not get as tired with normal activity. to return to yoga and exercise program. 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 Baseline Function- Recreation/Hobbies Pt reports that prior to stroke she was working out at the gym and doing yoga independently. She states that prior to the stroke, she has experienced occasional dizziness for years which sometimes impacted her ability to perform ADLs and gym workouts. Current Functional Impairments (Reported) Functional Limitations- ADL's decreased activity tolerance with ADLS such as cooking, cleaning, and caring for 2 sons. Unable to sit/stand for greater than 1 hour at a time due to fatigue and B LE weakness. Functional Limitations- Mobility/Gait Dizziness with walking and postural changes such as rising from bed in morning and transitioning from sit to stand. Pt reports her walking distance and stair ascent/ descent is most limited by fatigue and muscle weakness. Functional Limitations- Work/School Unable to sit/stand greater than 1 hour at a time at work due to generalized muscle aches and spasms. Increased levels of fatigue and postural instability with 1 flight of stairs to enter office at work . Functional Limitations- Recreation/ Pt unable to return to yoga Hobbies and workout regimen at gym. Pt advised not to return to independent exercise until further evaluation by specialist regarding CT findings. Personal Factors Other Personal Factors That May Effect history of alcohol abuse ( Therapy/Recovery sober since April 2019), depression, alcohol-withdrawal related seizure, HTN, and HAs . PT-OP-C Subjective Start: 01/26/19 12:42 Freq: Status: Active Protocol: Document 02/21/19 13:31 BS (Rec: 02/21/19 13:43 BS [id number]) OP-PT Subjective Patient Comments Patient Comments Pt states that she has had a busy last week with traveling for work so she has not done HEP. She reports minimal episodes of dizziness since last week. C/o B LE muscle soreness following last session, subsided within 1 day . PT-OP-D Balance Start: 01/26/19 12:42 Freq: Status: Active Protocol: Document 02/14/19 13:44 BS (Rec: 02/14/19 14:09 BS [id number]) Balance Tests Single Limb Standing Single Limb- Right 7 sec Single Limb- Left 5 sec PT-OP-E Functional Tests Start: 01/26/19 12:42 Freq: Status: Active Protocol: Document 02/21/19 13:31 BS (Rec: 02/21/19 13:44 BS [id number]) Functional Tests Dynamic Gait Index (DGI) Score 21 DGI Impairment Rating 1 to <20% Impaired (Score 20- 23) PT-OP-F Manual Assessment Start: 01/26/19 12:42 Freq: Status: Active Protocol: Document 02/11/19 12:40 BS (Rec: 02/11/19 16:57 BS [email or web address]) Manual Assessments Joint Mobility Assessment Joint Mobility Assessment PROM bilateral hip, knee, flexon ROM WFL and pain-free. Mild to moderate extensor tone noted in LLE. Gross AROM bilateral shoulder flex, abduction, IR/ER, extension WFL and pain-free. PT-OP-G Mobility & Gait Start: 01/26/19 12:42 Freq: Status: Active Protocol: Document 02/11/19 12:40 BS (Rec: 02/11/19 16:57 BS [email or web address]) OP Mobility Evaluation Bed Mobility Supine to and from Sit Indpendent, use of B UEs Transfers Sit to Stand Independent, use of B UEs. Bed to Chair Transfers Independent without use of Ad. OP Gait Assessment Gait Gait Assistance Required: Independent Able to Maintain Weight Bearing Status Yes During Gait Assistive Devices Assistive Device None Orthotic/Prosthetic Devices or Brace: No Gait Deviations General Gait Pattern Decreased Stride Length Factors Limiting Gait Function Factors Limiting Gait Function Decreased Activity Tolerance Decreased Strength Comments Gait Comments Dizziness with gait and horizontal/vertical head movement during DGI today. R ankle DF weakness noted with slight foot drop during swing phase. Stair Climbing Evaluation Comments Stair Climbing Comments Did not formally assess during IE. Pt reports she is able to ascent/descend stairs without use of handrail but feels B LE weakness and fatigue with 1 flight up to office. PT-OP-H Neuro Start: 01/26/19 12:42 Freq: Status: Active Protocol: Document 02/14/19 13:44 BS (Rec: 02/14/19 14:09 BS [id number]) Sensation Evaluation Comments Summary Comments Sensation testing completed today with results different than IE. Pt able to feel light touch in all LE dermatomes but reports that it feels diminished on the RLE and feels less pressure on RLE with deep pressure testing. Sensation in tact with testing to B palmar and dorsal aspect of feet. Coordination Evaluation Lower Extremity Tests Right Foot Tapping Test Normal Performance Lower Extremity Fixation/Position Normal Performance Holding Test Left Foot Tapping Test Normal Performance Lower Extremity Fixation/Position Normal Performance Holding Test PT-OP-J Posture/Palpation/Skin Start: 01/26/19 12:42 Freq: Status: Active Protocol: Document 02/11/19 12:40 BS (Rec: 02/11/19 16:57 BS [email or web address]) Posture Evaluation Comments Posture Comments In sitting, pt presents with forward head and rounded shoulders. Pt appears to equally weightbear through B LEs in standing. Palpation Assessment Location One Palpation Details No pain to palpation of B UEs, or thoracic paraspinals. PT-OP-K Range of Motion Start: 01/26/19 12:42 Freq: Status: Active Protocol: Document 02/11/19 12:40 BS (Rec: 02/11/19 16:57 BS [email or web address]) Shoulder Goniometric Range of Motion Shoulder Measured in Degrees Left Shoulder ROM WFL Yes Shoulder ROM Limitations Comments Bilateral shoulder AROM flexion, extension, abduction, IR/ER all grossly WFL and pain-free. PT-OP-M Strength Start: 01/26/19 12:42 Freq: Status: Active Protocol: Document 02/11/19 12:40 BS (Rec: 02/11/19 16:57 BS [email or web address]) Shoulder Strength Shoulder Manual Muscle Testing Right Flexion 4 Good Extension 5 Normal Abduction (C5) 4 Good External Rotation 5 Normal Internal Rotation 5 Normal Comments All strength testing pain-free . Left Flexion 5 Normal Extension 5 Normal Abduction (C5) 5 Normal External Rotation 5 Normal Internal Rotation 5 Normal Comments All strength testing pain-free . Hip Strength Hip Manual Muscle Testing Right Flexion (L2) 4 Good External Rotation 4+ Good+ Internal Rotation 4+ Good+ Left Flexion (L2) 5 Normal External Rotation 5 Normal Internal Rotation 5 Normal Knee Strength Knee Manual Muscle Testing Right Flexion (S2) 5 Normal Extension (L3) 5 Normal Left Flexion (S2) 5 Normal Extension (L3) 5 Normal Ankle/Foot Strength Ankle and Foot Manual Muscle Testing Right Dorsiflexion (L4) 4 Good Left Dorsiflexion (L4) 5 Normal PT-OP-Q Treatments Start: 01/26/19 12:42 Freq: Status: Active Protocol: Document 02/21/19 13:31 BS (Rec: 02/21/19 13:43 BS [id number]) Therapeutic Exercises Sitting Exercises 3 Sitting Exercise Name LAQs Side bilateral Reps/Minutes 2x10 Comments VCs for slow eccentric lower 2 Sitting Exercise Name Hip IR/ER Equipment Used ball between knees, #1 band Reps/Minutes 2x10 Standing Exercises 5 Standing Exercise Name Mini squats Equipment Used // bars Reps/Minutes x10 Comments VCs to avoid anterior knee translation 4 Standing Exercise Name Hamstring Curls Equipment Used // bars Reps/Minutes 2x10 Comments VCs deep breathing 3 Standing Exercise Name Calf Raises and Toe Raises Equipment Used // bars Reps/Minutes 2x10 Comments VCs deep breathing 2 Standing Exercise Name Hip abduction Side bilateral Equipment Used // bars Reps/Minutes 2x10 Comments VCs deep breathing 1 Standing Exercise Name Hip extension Side bilateral Equipment Used // bars Reps/Minutes 2x10 Comments VCs deep breathing Neuro Re-Education Treatment Balance Activities 3 Details Balance on BOSU yellow Equipment small yellow bosu, // bars Reps/Duration x3 min Comments c/o of some L ankle discomfort . Occasional use of UEs on bars to steady. Reported dizziness after this activity. 1 Details Single Limb Balance Equipment // bars Comments 5 trials each leg to failure. Pt garryo'd improved SL balance today, occasional steadying on // bars. RLE:15 sec LLE: 12 sec PT-OP-T Assessment and Plan Start: 01/26/19 12:42 Freq: Status: Active Protocol: Document 02/21/19 13:31 BS (Rec: 02/21/19 13:43 BS [id number]) Physical Therapy Assessment Assessment Summary Assessment Pt garryo'd increased activity tolerance today with no complaints of dizziness until end of session following bosu balance activity. Her single limb balance has also improved since last session. Pt will see hydrocephalus specialist Saturday 02/24. Physical Therapy Plan Next Visit Focus/Plan Next Note Type Treatment Note Next Visit Plan Continue B LE strenthening, consider progression with increased reps or resistance. Monitor dizziness and encourage diaphragmatic breathing. Discuss findings from hydrocephalus specialist and consider aerobic training.
--- NOTE | 2019-02-25 14:51 | PT.OTN ---
Current Diagnoses Hydrocephalus, unspecified (02/25/19) Cerebral infarction, unspecified (02/25/19) Unspecified abnormalities of gait and mobility (02/25/19) Physical Therapy Treatment Note PT-OP-A Visit Information Start: 01/26/19 12:42 Freq: Status: Active Protocol: Document 02/25/19 12:49 LRN (Rec: 02/25/19 13:34 LRN [id number]) Out-Patient Physical Therapy Visit Information Visit Information Visit Type Treatment Note Visit Start Time 12:49 Visit Stop Time 13:33 Total Visit Minutes 44 Visit Number 4 Number of MARBLE SETTER Visits 0 Evaluation Information Evaluation Date 02/11/19 Precautions Precautions Dizziness and lightheadness with activity. Possible hydrocephalus revealed with head CT, pending specialist evaluation 02/24/19. Recent cardiac echocardiogram revealed possible patent foramen ovale. PT-OP-B Current Condition Start: 01/26/19 12:42 Freq: Status: Active Protocol: Document 02/11/19 12:40 BS (Rec: 02/11/19 12:42 BS [id number]) Current Condition History of Current Condition Onset Date 12/04/18 Current Complaints R sided weakness, dizziness, and fatigue History of Current Condition Pt is a 38 year old female status post CVA on 11/28/18. Pt complains of subsequent R sided weakness, muscle spasms, speech and memory difficulties, postural instability, dizziness/ lightheadedness, and increased levels of fatigue with normal daily activities. She also reports changes in proprioception and sensation in LLE. Following the stroke, pt states that she was so weak and fatigued that she was not able to leave her home and could not tolerate therapy at that time. She is currently starting physical therapy, occupational therapy, and speech therapy at [facility]. 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 She reports that she has returned to normal working hours, but with increased levels of fatigue. Prior Treatments and Tests No prior physical therapy. Pt has undergone treatment for alcoholism and reports being sober since April 2019. Future Testing and Treatments Planned Assesss DGI as tolerated by pt . Unable to complete all of it today d/t dizziness. Developmental History Developmental History Home/Work environment: Single level home, no LOLY, lives with 2 sons. 1 flight of stairs with x2 handrail at work. Treatment Goals Patient/Caregiver Goals to feel more confident with balance and walking and not get as tired with normal activity. to return to yoga and exercise program. 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 Baseline Function- Recreation/Hobbies Pt reports that prior to stroke she was working out at the gym and doing yoga independently. She states that prior to the stroke, she has experienced occasional dizziness for years which sometimes impacted her ability to perform ADLs and gym workouts. Current Functional Impairments (Reported) Functional Limitations- ADL's decreased activity tolerance with ADLS such as cooking, cleaning, and caring for 2 sons. Unable to sit/stand for greater than 1 hour at a time due to fatigue and B LE weakness. Functional Limitations- Mobility/Gait Dizziness with walking and postural changes such as rising from bed in morning and transitioning from sit to stand. Pt reports her walking distance and stair ascent/ descent is most limited by fatigue and muscle weakness. Functional Limitations- Work/School Unable to sit/stand greater than 1 hour at a time at work due to generalized muscle aches and spasms. Increased levels of fatigue and postural instability with 1 flight of stairs to enter office at work . Functional Limitations- Recreation/ Pt unable to return to yoga Hobbies and workout regimen at gym. Pt advised not to return to independent exercise until further evaluation by specialist regarding CT findings. Personal Factors Other Personal Factors That May Effect history of alcohol abuse ( Therapy/Recovery sober since April 2019), depression, alcohol-withdrawal related seizure, HTN, and HAs . PT-OP-C Subjective Start: 01/26/19 12:42 Freq: Status: Active Protocol: Document 02/25/19 12:49 LRN (Rec: 02/25/19 13:34 LRN [id number]) OP-PT Subjective Patient Comments Patient Comments States she saw the specialist yesterday and was told she could restart exercising. She is going to be test before and after a spinal tap that is yet to be scheduled. States she has an old L knee injury and the Biodex bothered her to start but after 3 min it doesn't hurt anymore. PT-OP-D Balance Start: 01/26/19 12:42 Freq: Status: Active Protocol: Document 02/14/19 13:44 BS (Rec: 02/14/19 14:09 BS [id number]) Balance Tests Single Limb Standing Single Limb- Right 7 sec Single Limb- Left 5 sec PT-OP-E Functional Tests Start: 01/26/19 12:42 Freq: Status: Active Protocol: Document 02/21/19 13:31 BS (Rec: 02/21/19 13:44 BS [id number]) Functional Tests Dynamic Gait Index (DGI) Score 21 DGI Impairment Rating 1 to <20% Impaired (Score 20- 23) PT-OP-F Manual Assessment Start: 01/26/19 12:42 Freq: Status: Active Protocol: Document 02/11/19 12:40 BS (Rec: 02/11/19 16:57 BS [email or web address]) Manual Assessments Joint Mobility Assessment Joint Mobility Assessment PROM bilateral hip, knee, flexon ROM WFL and pain-free. Mild to moderate extensor tone noted in LLE. Gross AROM bilateral shoulder flex, abduction, IR/ER, extension WFL and pain-free. PT-OP-G Mobility & Gait Start: 01/26/19 12:42 Freq: Status: Active Protocol: Document 02/11/19 12:40 BS (Rec: 02/11/19 16:57 BS [email or web address]) OP Mobility Evaluation Bed Mobility Supine to and from Sit Indpendent, use of B UEs Transfers Sit to Stand Independent, use of B UEs. Bed to Chair Transfers Independent without use of Ad. OP Gait Assessment Gait Gait Assistance Required: Independent Able to Maintain Weight Bearing Status Yes During Gait Assistive Devices Assistive Device None Orthotic/Prosthetic Devices or Brace: No Gait Deviations General Gait Pattern Decreased Stride Length Factors Limiting Gait Function Factors Limiting Gait Function Decreased Activity Tolerance Decreased Strength Comments Gait Comments Dizziness with gait and horizontal/vertical head movement during DGI today. R ankle DF weakness noted with slight foot drop during swing phase. Stair Climbing Evaluation Comments Stair Climbing Comments Did not formally assess during IE. Pt reports she is able to ascent/descend stairs without use of handrail but feels B LE weakness and fatigue with 1 flight up to office. PT-OP-H Neuro Start: 01/26/19 12:42 Freq: Status: Active Protocol: Document 02/14/19 13:44 BS (Rec: 02/14/19 14:09 BS [id number]) Sensation Evaluation Comments Summary Comments Sensation testing completed today with results different than IE. Pt able to feel light touch in all LE dermatomes but reports that it feels diminished on the RLE and feels less pressure on RLE with deep pressure testing. Sensation in tact with testing to B palmar and dorsal aspect of feet. Coordination Evaluation Lower Extremity Tests Right Foot Tapping Test Normal Performance Lower Extremity Fixation/Position Normal Performance Holding Test Left Foot Tapping Test Normal Performance Lower Extremity Fixation/Position Normal Performance Holding Test PT-OP-J Posture/Palpation/Skin Start: 01/26/19 12:42 Freq: Status: Active Protocol: Document 02/11/19 12:40 BS (Rec: 02/11/19 16:57 BS [email or web address]) Posture Evaluation Comments Posture Comments In sitting, pt presents with forward head and rounded shoulders. Pt appears to equally weightbear through B LEs in standing. Palpation Assessment Location One Palpation Details No pain to palpation of B UEs, or thoracic paraspinals. PT-OP-K Range of Motion Start: 01/26/19 12:42 Freq: Status: Active Protocol: Document 02/11/19 12:40 BS (Rec: 02/11/19 16:57 BS [email or web address]) Shoulder Goniometric Range of Motion Shoulder Measured in Degrees Left Shoulder ROM WFL Yes Shoulder ROM Limitations Comments Bilateral shoulder AROM flexion, extension, abduction, IR/ER all grossly WFL and pain-free. PT-OP-M Strength Start: 01/26/19 12:42 Freq: Status: Active Protocol: Document 02/11/19 12:40 BS (Rec: 02/11/19 16:57 BS [email or web address]) Shoulder Strength Shoulder Manual Muscle Testing Right Flexion 4 Good Extension 5 Normal Abduction (C5) 4 Good External Rotation 5 Normal Internal Rotation 5 Normal Comments All strength testing pain-free . Left Flexion 5 Normal Extension 5 Normal Abduction (C5) 5 Normal External Rotation 5 Normal Internal Rotation 5 Normal Comments All strength testing pain-free . Hip Strength Hip Manual Muscle Testing Right Flexion (L2) 4 Good External Rotation 4+ Good+ Internal Rotation 4+ Good+ Left Flexion (L2) 5 Normal External Rotation 5 Normal Internal Rotation 5 Normal Knee Strength Knee Manual Muscle Testing Right Flexion (S2) 5 Normal Extension (L3) 5 Normal Left Flexion (S2) 5 Normal Extension (L3) 5 Normal Ankle/Foot Strength Ankle and Foot Manual Muscle Testing Right Dorsiflexion (L4) 4 Good Left Dorsiflexion (L4) 5 Normal PT-OP-Q Treatments Start: 01/26/19 12:42 Freq: Status: Active Protocol: Document 02/25/19 12:49 LRN (Rec: 02/25/19 13:34 LRN [id number]) Cardio Equipment Recumbent Elliptical (Biodex) Duration (Minutes) 5 Resistance 1 Therapeutic Exercises Sitting Exercises 3 Sitting Exercise Name LAQs Side bilateral Resistance 1# Reps/Minutes 2x15 Comments VCs for slow eccentric lower Standing Exercises 5 Standing Exercise Name Mini squats Equipment Used // bars Reps/Minutes 2x15 Comments VCs to avoid anterior knee translation 4 Standing Exercise Name Hamstring Curls Side bilateral Resistance 1# Equipment Used // bars Reps/Minutes 2x10 Comments VCs deep breathing 3 Standing Exercise Name Calf Raises and Toe Raises Equipment Used // bars Reps/Minutes 2x10 Comments VCs deep breathing 2 Standing Exercise Name Hip abduction Side bilateral Resistance 1# Equipment Used // bars Reps/Minutes 2x15 Comments VCs deep breathing 1 Standing Exercise Name Hip extension Side bilateral Resistance 1# Equipment Used // bars Reps/Minutes 2x15 Comments VCs deep breathing Neuro Re-Education Treatment Balance Activities Toe tapping Details Eyes at feet & Eyes foward: Alternate toe taps lifting R LE higher than left Equipment Stairs Stepping over hurdles Details Stepping over green hurdles Surface level Equipment green hurdles Comments Pt caught R foot x 1 3 Details Balance on big BOSU Equipment bosu, stair railing Reps/Duration x5 min Comments c/o of some L ankle discomfort . Occasional use of UEs on bars to steady. Reported dizziness after this activity. Self-Care/Home Management Treatment Education Patient Education Home Exercise Program Activities Self-Care/Home Management Activities I/S pt to increase practice of deep breathing. PT-OP-T Assessment and Plan Start: 01/26/19 12:42 Freq: Status: Active Protocol: Document 02/25/19 12:49 LRN (Rec: 02/25/19 13:34 LRN [id number]) Physical Therapy Assessment Assessment Summary Assessment Pt was cleared for exercise by hydrocephalus specialist. Pt tolerated 5' aerobic. Pt feeling RLE weak and heavy, but appears to have same mobility as LLE with stepping and walking over hurdles. Good tolerance to ex with increased resistance. Hamstrings are most limited in strength. Physical Therapy Plan Frequency and Duration Frequency of Treatment 2x/Week Duration of Treatment 10-12 weeks Plan of Care Start Date 02/11/19 Plan of Care End Date 05/06/19 Next Visit Focus/Plan Next Note Type Treatment Note Next Visit Plan Recheck Deep breathing for proper mechanics. Continue B LE strengthening, consider progression with increased reps or resistance. Monitor dizziness and encourage diaphragmatic breathing. Progress aerobic exercise.
--- NOTE | 2019-05-15 15:38 | PT.OPDS ---
Current Diagnoses Hydrocephalus, unspecified (02/25/19) Cerebral infarction, unspecified (02/25/19) Unspecified abnormalities of gait and mobility (02/25/19) Provider Visit Care Team Role Provider Type Brenda Fu MD Primary Care Provider Non-Staff Specialty: Family Practice Address: [address] [place] [address], [address] Email: Other Providers Specialty: Address: Phone: Fax: Email: Constance Esqueda MD Attending Provider Physician Specialty: Psychiatry Address: [address] [place] [address], [place] [address], [place], [address] Email: Visit Number Visit Number 4 Discharge Summary PT-OP-B Current Condition Start: 01/26/19 12:42 Freq: Status: Active Protocol: Document 02/11/19 12:40 BS (Rec: 02/11/19 12:42 BS [id number]) Current Condition History of Current Condition Onset Date 12/04/18 Current Complaints R sided weakness, dizziness, and fatigue History of Current Condition Pt is a 38 year old female status post CVA on 11/28/18. Pt complains of subsequent R sided weakness, muscle spasms, speech and memory difficulties, postural instability, dizziness/ lightheadedness, and increased levels of fatigue with normal daily activities. She also reports changes in proprioception and sensation in LLE. Following the stroke, pt states that she was so weak and fatigued that she was not able to leave her home and could not tolerate therapy at that time. She is currently starting physical therapy, occupational therapy, and speech therapy at [facility]. 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 She reports that she has returned to normal working hours, but with increased levels of fatigue. Prior Treatments and Tests No prior physical therapy. Pt has undergone treatment for alcoholism and reports being sober since April 2019. Future Testing and Treatments Planned Assess DGI as tolerated by pt . Unable to complete all of it today d/t dizziness. Developmental History Developmental History Home/Work environment: Single level home, no LOLY, lives with 2 sons. 1 flight of stairs with x2 handrail at work. Treatment Goals Patient/Caregiver Goals to feel more confident with balance and walking and not get as tired with normal activity. to return to yoga and exercise program. 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 Baseline Function- Recreation/Hobbies Pt reports that prior to stroke she was working out at the gym and doing yoga independently. She states that prior to the stroke, she has experienced occasional dizziness for years which sometimes impacted her ability to perform ADLs and gym workouts. Current Functional Impairments (Reported) Functional Limitations- ADL's decreased activity tolerance with ADLS such as cooking, cleaning, and caring for 2 sons. Unable to sit/stand for greater than 1 hour at a time due to fatigue and B LE weakness. Functional Limitations- Mobility/Gait Dizziness with walking and postural changes such as rising from bed in morning and transitioning from sit to stand. Pt reports her walking distance and stair ascent/ descent is most limited by fatigue and muscle weakness. Functional Limitations- Work/School Unable to sit/stand greater than 1 hour at a time at work due to generalized muscle aches and spasms. Increased levels of fatigue and postural instability with 1 flight of stairs to enter office at work . Functional Limitations- Recreation/ Pt unable to return to yoga Hobbies and workout regimen at gym. Pt advised not to return to independent exercise until further evaluation by specialist regarding CT findings. Personal Factors Other Personal Factors That May Effect history of alcohol abuse ( Therapy/Recovery sober since April 2019), depression, alcohol-withdrawal related seizure, HTN, and HAs . PT-OP-T Assessment and Plan Start: 01/26/19 12:42 Freq: Status: Active Protocol: Document 05/15/19 15:27 LRN (Rec: 05/15/19 15:37 LRN [id number]) Physical Therapy Assessment Goals Four Longterm Goal (LTG) Lower extremity functional scale score to improve from 41 to at least 32, demonstrating improvements in B LE strength and functional mobility. LTG Duration 10-12 weeks Three Impairment Activity Tolerance Short Term Goal (STG) Pt to subjectively report improvements in performing activities of daily living with less generalized fatigue so that she is able to returnt to level of function prior to stroke. STG Duration 6 weeks Longterm Goal (LTG) Pt to ambulate with vertical/ horizontal head movement without experiencing signs/ symptoms of dizziness to improve safety during community ambulation and reduce risk of falls. LTG Duration 10-12 weeks Two Impairment strength Short Term Goal (STG) MMT of R hip flexion, ankle PF , and R shoulder flexion to improve to 5/5, demonstrating equal strength of R and L side /recovery of strength post CVA . STG Duration 10-12 weeks One Impairment HEP Short Term Goal (STG) Pt will become independent with an HEP in order to maximize rehabiliation potentional outside of formal PT sessions. STG Duration 3 weeks Longterm Goal (LTG) Pt will perform standing balance in tandem, EC, for >30 seconds with appropriate ankle strategies and no LOB for improved safety with ambulation in low light settings. LTG Duration 10-12 weeks Assessment Summary Assessment Pt's last attended visit was . Per OT, had canceled all rehabilitation appointments due to expected brain surgery on 04/10/19. Pt was not given final assessment as she self discharged per phone. Physical Therapy Plan Discharge Physical Therapy Discharge Reasons Patient Request Discharge Comments Pt had requested discharge per phone with front office due to surgery planned 04/10/19.
== END 2019-05-29 09:55 | disposition home or self-care (01) ==
LOC: PHYS 12:45
PROVIDERS: PCP Family Medicine; Visit Provider Psychiatry & Neurology Neurology
DX: I63.9 Cerebral infarction, unspecified (principal); G91.9 Hydrocephalus, unspecified; R26.9 Unspecified abnormalities of gait and mobility
CPT/HCPCS: 97110; 97112; 97162; 97535

== ENCOUNTER 2019-03-21 10:30 | Outpatient (RCR) | payer OTHER, SELFPAY ==
--- NOTE | 2019-02-07 16:13 | OT.OP.EVAL ---
Visit Care Team Role Provider Type Brenda Fu MD Primary Care Provider Non-Staff Specialty: Family Practice Address: [address] [place] [address], [id number] Email: Constance Esqueda MD Attending Provider Physician Specialty: Psychiatry Address: [facility] [id number], [place], [address] Email: Occupational Therapy Initial Evaluation OT Outpatient Adult Evaluation Start: 02/07/19 14:14 Freq: Status: Active Protocol: Document 02/07/19 14:15 AMS (Rec: 02/07/19 14:36 AMS [id number]) General Information Visit Start Time 12:30 Visit Stop Time 13:18 Total Visit Minutes 48 Visit Number 45 visits [facility]Y Plan of Care Dates 02/07/19-05/02/19 Insurance Information 45 [facility] PT/OT/ENTRY ANALYST Combined Treatment Setting Outpatient Care Note Type Initial Evaluation Referring Physician Dheeraj Nolasco MD Reason for Referral CVA, unspecified mechanism; hydrocephalus Identification Confirmed Yes: Photo ID Medical History Review of medical records completed. 38 year-old female presented to [facility] 11/28/18 secondary to R UE/LE weakness and numbness, as well as word finding difficulties. MRI completed on 11/28/18; findings were as follows: 2 foci of acute/subacute infarct within the external capsule of the left basal ganglia. Dilated lateral and third ventricles. Mild transependymal edema which may be associated w/ hydrocephalus. CTA head and neck 11/28/18; unremarkable. Prominence of the third and fourth ventricles. CT head ; findings were as follows: dilated lateral ventricles and third ventricle suspicious for hydrocephalus; mild ethmoid sinus mucosal thickening bilaterally. Echo ; 'there is a very small number of bubbles crossing from the right atrium to the left atrium with valsalva maneuver; it is significant for either very small patent foramen ovale or pulmonary shunt'. Patient reported that she has been referred d/t normal pressure hydrocephalus to specialist. Medical History form completed on this date; patient reported that medication list was incomplete . Medications listed included Aspirin, 'high blood pressure' , Lipator, and Neltrexone. Therapy Pain Assessment When Pain Assessed pre-treat Generalized Scale Used 1-5; 'Muscle Spasms' ADLs Basic ADLs WFL IADLs Driving Ability Reported driving self. Vocational Ability Working 8 hours x 4 days. PLOF : 10 hours x 4 days. Cognition Cognitive Assessment c/o word finding difficulties and short term memory loss. Please refer to ENTRY ANALYST eval. Observations Observations Tightness out of typical bebo pattern of the distal R UE; at rest on TT tendency of digits to curl into flexed position particularly of the ulnar side of the hand. Compensatory motor planning observed w/ shoulder circles; (+) elbow flexion observed w/ R w/ UE positioned to the R of the body. Observations 9-Hole Peg Test. Completed in 21.8 sec w/ R hand (3 SD above the mean). Completed in 19.3 sec w/ L hand (1 SD above the mean). Right 35-39 y.o. female norms 16.4 +/- 1.6 Left 35-39 y.o. female norms 17.3 +/- 2.0 Muscle Testing Left Convention Planner Dynamometer II 57.7 Right Convention Planner Dynamometer II 52.0 Neurological Assessment - Adult Finger to Nose Test see below Finger Opposition Test see below Comments Finger to nose minimal impairment w/ EO w/ R UE; irregular/jerky movement and decreased accuracy w/ touching of nose and finger. Increased errors relative to accuracy w / touching of nose and finger w/ EC w/ R UE. WFL w/ L UE w/ EO and EC. Opposition test required increased focus w/ EO and EC relative to R hand. Sensation Assessment Summary Comments Patient reported abnormal sensation of the R UE primarily of the hand. Patient verbalized pain in the wrist and digits of the R hand s/p object manipulation, particularly w/ squeezing objects. Patient indicated pain was like 'arthritis'. Light touch intact of volar surfaces of B hands. Goals Treatment Initiated HEP; instructed in in-hand manipulation activity of the R hand. Finger opposition w/ small spherical object; shift of object w/ small spherical object w/ R hand. PROM of distal R UE; combination of elbow extension , forearm supination, and wrist and digit extension w/ hold. Strengthening of digit extensors w/ use of light resistance (single rubberband) . Provided written and visual instructions for exercises ( PROM and rubberband exercises given availability). Patient denied questions; recommend reviewing. Short Term Goals 1. Patient will demonstrate improved fine motor coordination skills, as evidenced by her ability to complete the 9-Hole Peg Test under 18.7 seconds with her right hand. Long-Term Goals 1. Patient will be mod I with R UE home exercise program utilizing provided written and visual instructions from therapist. Assessment/Plan Patient Response Good Rehabilitation Potential Good Impairments Identified Coordination/Dexterity Functional Activities Motor Function Pain Weakness Range of Motion Recreational Activities Meaningful Activities Stiffness Motor Planning Treatment Assessment Pt is a 38 year-old right-hand dominant female referred to outpatient OT by neurologist secondary to CVA. PMH: MRI completed 11/28/18: 2 foci of acute/subacute infarct within the external capsule of the left basal ganglia. Dilated lateral and third ventricles. Mild transependymal edema which may be associated w/ hydrocephalus. CTA head and neck 11/28/18; unremarkable. Prominence of the third and fourth ventricles. CT head ; dilated lateral ventricles and third ventricle suspicious for hydrocephalus; mild ethmoid sinus mucosal thickening bilaterally. Echo ; 'there is a very small number of bubbles crossing from the right atrium to the left atrium with valsalva maneuver; it is significant for either very small patent foramen ovale or pulmonary shunt'. Patient reported that she has been referred to specialist d/t normal pressure hydrocephalus. Medications listed included Aspirin, 'high blood pressure', Lipator, and Neltrexone. Patient to be evaluated by outpatient ENTRY ANALYST and PT following week. PLOF: Independent w/ basic and instrumental ADLs. 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 Outpatient OT recommended to address these areas identified in the evaluation in order to maximize patient's speed and efficiency w/ execution of meaningful activities in daily life. Home Exercise Program Please refer to treatment section of note for specific details. Reviewed with Patient Goals Home Exercise Program Patient Understanding Good Comment 12 weeks Treatment Frequency Once a Week Therapeutic Contents Active Range of Motion Client Education Cognitive Skills Development Functional Activities Home Exercise Program Manual Therapy Education Neurodevelopment Treatment Neuromuscular Re-Education Self-Care Stretching/Flexibility Activities Therapeutic Activities Therapeutic Exercises Modalities Sensory Re-education
--- NOTE | 2019-02-14 11:57 | OT.OP.TRT ---
Visit Care Team Role Provider Type Brenda Fu MD Primary Care Provider Non-Staff Specialty: Family Practice Address: [address] [place] [address], [id number] Email: Constance Esqueda MD Attending Provider Physician Specialty: Psychiatry Address: [facility], [facility] [id number], [place], [address] Email: Occupational Therapy Treatment Note OT Outpatient Treatment Note - Adult Start: 02/07/19 14:15 Freq: Status: Active Protocol: Document 02/14/19 11:32 AMS (Rec: 02/14/19 11:57 AMS [email or web address]) OT Outpatient Adult Treatment Note Session Time Visit Start Time 10:30 Visit Stop Time 11:18 Total Visit Minutes 48 Visit Information Visit Number 45 visits [facility] Plan of Care Dates 02/07/19-05/02/19 Insurance Information 45 PCY PT/OT/WELT TRIMMING MACHINE OPERATOR Combined Setting Treatment Setting Outpatient Care Visit Type Note Type Treatment Note General Information General Information Pt is a 38 year-old right-hand dominant female referred to outpatient OT by neurologist secondary to CVA. PMH: MRI completed 11/28/18: 2 foci of acute/subacute infarct within the external capsule of the left basal ganglia. Dilated lateral and third ventricles. Mild transependymal edema which may be associated w/ hydrocephalus. CTA head and neck 11/28/18; unremarkable. Prominence of the third and fourth ventricles. CT head ; dilated lateral ventricles and third ventricle suspicious for hydrocephalus; mild ethmoid sinus mucosal thickening bilaterally. Echo ; 'there is a very small number of bubbles crossing from the right atrium to the left atrium with valsalva maneuver; it is significant for either very small patent foramen ovale or pulmonary shunt'. Patient reported that she has been referred to specialist d/t normal pressure hydrocephalus. Medications listed included Aspirin, 'high blood pressure', Lipator, and Neltrexone. Patient to be evaluated by outpatient WELT TRIMMING MACHINE OPERATOR and PT following week. PLOF: Independent w/ basic and instrumental ADLs. 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 - Subjective Identification Type Name Identification Reconciled With Medical Record Observations My appointment is on the at [facility] per Summer. Chief Complaint(s) Restricts Patient/Caregiver Compliance with Home Good Exercise Program - Objective Short Term Goals 1. Patient will demonstrate improved fine motor coordination skills, as evidenced by her ability to complete the 9-Hole Peg Test under 18.7 seconds with her right hand. Critical Care Nurse Specialist Goals 1. Patient will be mod I with R UE home exercise program utilizing provided written and visual instructions from therapist. - Treatment 3 Descriptor Motor planning Digit extension/isolation palm flat on table 3x10 2 Descriptor In-hand manipulation skills Translation, rotation, shift - R hand 1 Descriptor Ultrasound. 20% duty cycle; 2. 0 w/cm2. Volar surface of right forearm. Skin intact pre - and post-treatment. Exercises 2 Descriptor ROM/Manual mobility to support forearm supination, digit extension, wrist UD 1 Descriptor PROM of distal R UE Prayer stretch, wrist flexor stretch near full elbow extension w/ forearm supination - Assessment Patient Response to Treatment Good Rehab Potential Good Impairments Identified Coordination/Dexterity Flexibility Functional Activities Memory Motor Function Pain Weakness Range of Motion Recreational Activities Meaningful Activities Stiffness Motor Planning Assessment of Improvement Tightness of volar surface of right forearm; (+) finger flexion of all digits w/ UE resting on table. Discussed introducing weight bearing, UE proprioceptive, UE strengthening exercises into extension s/p evaluation by neurologist at [facility]. Reviewed importance of daily execution of home exercise program. Home Exercise Program No new recommendations at this time. Reviewed current UE HEP . Patient denied questions. Reviewed with Patient/Caregiver Goals Progress Being Made Home Exercise Program Patient/Caregiver Understanding Good - Plan Therapy Recommendations Continue with Current Program Advance per Rehabilitation Protocol Additional Therapy Recommendations Consult w/ WELT TRIMMING MACHINE OPERATOR & PT
--- NOTE | 2019-03-07 13:28 | OT.OP.TRT ---
Visit Care Team Role Provider Type Brenda Fu MD Primary Care Provider Non-Staff Specialty: Family Practice Address: [address] [place] [address], [id number] Email: Constance Esqueda MD Attending Provider Physician Specialty: Psychiatry Address: [facility] [id number], [place], [address] Email: Occupational Therapy Treatment Note OT Outpatient Treatment Note - Adult Start: 02/07/19 14:15 Freq: Status: Active Protocol: Document 03/07/19 13:09 AMS (Rec: 03/07/19 13:27 AMS [email or web address]) OT Outpatient Adult Treatment Note Session Time Visit Start Time 10:30 Visit Stop Time 11:18 Total Visit Minutes 48 Visit Information Visit Number 45 visits PCY Plan of Care Dates 02/07/19-05/02/19 Insurance Information 45 PCY PT/OT/TURNING MACHINE OPERATOR Combined Setting Treatment Setting Outpatient Care Visit Type Note Type Treatment Note General Information General Information Pt is a 38 year-old right-hand dominant female referred to outpatient OT by neurologist secondary to CVA. PMH: MRI completed 11/28/18: 2 foci of acute/subacute infarct within the external capsule of the left basal ganglia. Dilated lateral and third ventricles. Mild transependymal edema which may be associated w/ hydrocephalus. CTA head and neck 11/28/18; unremarkable. Prominence of the third and fourth ventricles. CT head ; dilated lateral ventricles and third ventricle suspicious for hydrocephalus; mild ethmoid sinus mucosal thickening bilaterally. Echo ; 'there is a very small number of bubbles crossing from the right atrium to the left atrium with valsalva maneuver; it is significant for either very small patent foramen ovale or pulmonary shunt'. Patient reported that she has been referred to specialist d/t normal pressure hydrocephalus. Medications listed included Aspirin, 'high blood pressure', Lipator, and Neltrexone. Patient to be evaluated by outpatient TURNING MACHINE OPERATOR and PT following week. PLOF: Independent w/ basic and instrumental ADLs. 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 - Subjective Identification Type Name Identification Reconciled With Medical Record Observations I am going to be talking to the doctor about getting a shunt per Summer. My hand is tired and sore after the exercises. I have to rest it for a really long time. I wonder if I am getting arthritis in this hand. Chief Complaint(s) Restricts Patient/Caregiver Compliance with Home Poor Exercise Program - Objective Short Term Goals 1. Patient will demonstrate improved fine motor coordination skills, as evidenced by her ability to complete the 9-Hole Peg Test under 18.7 seconds with her right hand. Snf Goals 1. Patient will be mod I with R UE home exercise program utilizing provided written and visual instructions from therapist. - Treatment 4 Descriptor Paraffin. x 10 minutes. Distal R UE. Skin intact pre- and post-treatment. 3 Descriptor Motor planning 2 Descriptor In-hand manipulation skills Translation, rotation, shift - R hand 1 Descriptor Ultrasound. 20% duty cycle; 2. 0 w/cm2. Volar surface of right forearm. Skin intact pre - and post-treatment. Exercises 5 Descriptor Flat palm/digits Hold for 3 seconds Side Right Body Position Seated Sets 1 Repetitions 15 4 Descriptor Wash cloth squeezes Side Right Body Position Seated Sets 1 Repetitions 15 3 Descriptor MCPJ extension Modifed prayer stretch Palm flat on table Side Right Body Position Seated Sets 1 Repetitions 15 2 Descriptor ROM/Manual mobility to support forearm supination, digit extension, wrist UD 1 Descriptor PROM of distal R UE prayer stretch, wrist flexor stretch near full elbow extension w/ forearm supination 1 set of 2 reps per exercise - Assessment Patient Response to Treatment Good Rehab Potential Good Impairments Identified Coordination/Dexterity Flexibility Functional Activities Memory Motor Function Pain Weakness Range of Motion Recreational Activities Meaningful Activities Stiffness Motor Planning Assessment of Improvement Decreased compliance w/ HEP per patient; patient reported 'not feeling like doing anything' since she was told that the doctor at [facility] wanted to talk to her 'about getting a shunt'. Recommended that patient contact her PCP re: referral to counselor and/ or therapist given recent changes in health/having difficulty w/ coping w/ changes/preparing self for shunt procedure. Also recommended that patient contact [facility] physician/ nurse re: recommendations for outpatient therapies ( continuing or holding until procedure). Reviewed importance of daily execution of home exercise program. Reduced HEP based on feedback from patient. Home Exercise Program Reduced HEP; instruction on time of day of exercises. Education re: importance of compliance w/ HEP. Reviewed all exercises in treatment session and answered all questions. Reviewed with Patient/Caregiver Goals Progress Being Made Home Exercise Program Patient/Caregiver Understanding Good - Plan Therapy Recommendations Continue with Current Program Advance per Rehabilitation Protocol Additional Therapy Recommendations Consult w/ TURNING MACHINE OPERATOR & PT
--- NOTE | 2019-03-17 11:05 | OT.OP.TRT ---
Visit Care Team Role Provider Type Brenda Fu MD Primary Care Provider Non-Staff Specialty: Family Practice Address: [address] [place] [address], [id number] Email: Constance Esqueda MD Attending Provider Physician Specialty: Psychiatry Address: [facility], [facility] [address], [place], [address] Email: Occupational Therapy Treatment Note OT Outpatient Treatment Note - Adult Start: 02/07/19 14:15 Freq: Status: Active Protocol: Document 03/14/19 15:30 AMS (Rec: 03/17/19 11:05 AMS [email or web address]) OT Outpatient Adult Treatment Note Session Time Visit Start Time 14:30 Visit Stop Time 15:15 Total Visit Minutes 45 Visit Information Visit Number 45 visits PCY Plan of Care Dates 02/07/19-05/02/19 Insurance Information 45 PCY PT/OT/PROSPECTING DRILLER Combined Setting Treatment Setting Outpatient Care Visit Type Note Type Treatment Note General Information General Information Pt is a 38 year-old right-hand dominant female referred to outpatient OT by neurologist secondary to CVA. PMH: MRI completed 11/28/18: 2 foci of acute/subacute infarct within the external capsule of the left basal ganglia. Dilated lateral and third ventricles. Mild transependymal edema which may be associated w/ hydrocephalus. CTA head and neck 11/28/18; unremarkable. Prominence of the third and fourth ventricles. CT head ; dilated lateral ventricles and third ventricle suspicious for hydrocephalus; mild ethmoid sinus mucosal thickening bilaterally. Echo ; 'there is a very small number of bubbles crossing from the right atrium to the left atrium with valsalva maneuver; it is significant for either very small patent foramen ovale or pulmonary shunt'. Patient reported that she has been referred to specialist d/t normal pressure hydrocephalus. Medications listed included Aspirin, 'high blood pressure', Lipator, and Neltrexone. Patient to be evaluated by outpatient PROSPECTING DRILLER and PT following week. PLOF: Independent w/ basic and instrumental ADLs. 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 - Subjective Identification Type Name Identification Reconciled With Medical Record Observations This hand still gets really tired per Summer. I feel like I am getting some sensation back in this arm. Chief Complaint(s) Restricts Patient/Caregiver Compliance with Home Fair Exercise Program - Objective Short Term Goals 1. Patient will demonstrate improved fine motor coordination skills, as evidenced by her ability to complete the 9-Hole Peg Test under 18.7 seconds with her right hand. Cuff Presser Goals 1. Patient will be mod I with R UE home exercise program utilizing provided written and visual instructions from therapist. - Treatment 5 Descriptor E-stim. [place]. 08/14 duty cycle. 14 intensity. x 10 minutes. Facilitation of active wrist and digit extension focus ulnarly. 4 Descriptor Paraffin. x 10 minutes. Distal R UE. Skin intact pre- and post-treatment. 3 Descriptor Motor planning Exercises 6 Descriptor Joint blocking - PIPJ 5th digit Active extension in gravity eliminated plane Side Right Sets 1 Repetitions 15 Complexity Upgraded 5 Descriptor Flat palm/digits Hold for 3 seconds Side Right Body Position Seated Sets 1 Repetitions 15 4 Descriptor Wash cloth squeezes Side Right Body Position Seated Sets 1 Repetitions 15 3 Descriptor MCPJ extension Modifed prayer stretch Palm flat on table Side Right Body Position Seated Sets 1 Repetitions 15 2 Descriptor ROM/Manual mobility to support forearm supination, digit extension, wrist UD 1 Descriptor PROM of distal R UE prayer stretch, wrist flexor stretch near full elbow extension w/ forearm supination 1 set of 2 reps per exercise - Assessment Patient Response to Treatment Good Rehab Potential Good Impairments Identified Coordination/Dexterity Flexibility Functional Activities Memory Motor Function Pain Weakness Range of Motion Recreational Activities Meaningful Activities Stiffness Motor Planning Assessment of Improvement Initiated e-stim protocol given weakness of distal R UE, patient feedback and poor tolerance w/ protective posturing following exercises. Improved active extension of 4th digit at PIP joint following e-stim protocol. Reviewed importance of daily execution of home exercise program. Recommend continuing w/ paraffin and e-stim modalities; recommend repeating joint blocking exercise. Transition to against gravity as tolerated. Home Exercise Program No changes to HEP. Education re: importance of compliance w / HEP. Reviewed exercises and answered all questions. Reviewed with Patient/Caregiver Goals Progress Being Made Home Exercise Program Patient/Caregiver Understanding Good - Plan Therapy Recommendations Continue with Current Program Advance per Rehabilitation Protocol Additional Therapy Recommendations Consult w/ PROSPECTING DRILLER & PT
--- NOTE | 2019-03-21 13:05 | OT.OP.TRT ---
Visit Care Team Role Provider Type Brenda Fu MD Primary Care Provider Non-Staff Specialty: Family Practice Address: [address] [place] [address], [id number] Email: Constance Esqueda MD Attending Provider Physician Specialty: Psychiatry Address: [facility], [facility] [id number], [place], [address] Email: Occupational Therapy Treatment Note OT Outpatient Treatment Note - Adult Start: 02/07/19 14:15 Freq: Status: Active Protocol: Document 03/21/19 12:57 AMS (Rec: 03/21/19 13:05 AMS [email or web address]) OT Outpatient Adult Treatment Note Session Time Visit Start Time 10:30 Visit Stop Time 11:15 Total Visit Minutes 45 Visit Information Visit Number 45 visits PCY Plan of Care Dates 02/07/19-05/02/19 Insurance Information 45 PCY PT/OT/OFFSET PRINTING OPERATOR Combined Setting Treatment Setting Outpatient Care Visit Type Note Type Treatment Note General Information General Information Pt is a 38 year-old right-hand dominant female referred to outpatient OT by neurologist secondary to CVA. PMH: MRI completed 11/28/18: 2 foci of acute/subacute infarct within the external capsule of the left basal ganglia. Dilated lateral and third ventricles. Mild transependymal edema which may be associated w/ hydrocephalus. CTA head and neck 11/28/18; unremarkable. Prominence of the third and fourth ventricles. CT head ; dilated lateral ventricles and third ventricle suspicious for hydrocephalus; mild ethmoid sinus mucosal thickening bilaterally. Echo ; 'there is a very small number of bubbles crossing from the right atrium to the left atrium with valsalva maneuver; it is significant for either very small patent foramen ovale or pulmonary shunt'. Patient reported that she has been referred to specialist d/t normal pressure hydrocephalus. Medications listed included Aspirin, 'high blood pressure', Lipator, and Neltrexone. Patient to be evaluated by outpatient OFFSET PRINTING OPERATOR and PT following week. PLOF: Independent w/ basic and instrumental ADLs. 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 - Subjective Identification Type Name Identification Reconciled With Medical Record Observations I saw my therapist per Summer. My boss is worried about me taking 6 weeks off from work for the surgery. Chief Complaint(s) Restricts Patient/Caregiver Compliance with Home Fair Exercise Program - Objective Short Term Goals 1. Patient will demonstrate improved fine motor coordination skills, as evidenced by her ability to complete the 9-Hole Peg Test under 18.7 seconds with her right hand. Leather Lacer Goals 1. Patient will be mod I with R UE home exercise program utilizing provided written and visual instructions from therapist. - Treatment 5 Descriptor E-stim. [place]. 08/14 duty cycle. 16 intensity. x 10 minutes. Facilitation of active wrist and digit extension focus ulnarly. 4 Descriptor Paraffin. x 10 minutes. Distal R UE. Skin intact pre- and post-treatment. Exercises 7 Descriptor Isometric digit extension 3rd, 4th and 5th digits of the right hand Sets 2 Repetitions 10 Complexity Upgraded 6 Descriptor Joint blocking - PIPJ 5th digit Active extension in gravity eliminated plane Side Right Sets 2 Repetitions 15 Complexity Upgraded 5 Descriptor Flat palm/digits Hold for 3 seconds Side Right Body Position Seated Sets 2 Repetitions 15 Complexity Upgraded 4 Descriptor Wash cloth squeezes Side Right Body Position Seated Sets 1 Repetitions 15 3 Descriptor MCPJ extension Modifed prayer stretch Palm flat on table Side Right Body Position Seated Sets 1 Repetitions 15 1 Descriptor PROM of distal R UE prayer stretch, wrist flexor stretch near full elbow extension w/ forearm supination 1 set of 2 reps per exercise Complexity No Change - Assessment Patient Response to Treatment Good Rehab Potential Good Impairments Identified Coordination/Dexterity Flexibility Functional Activities Memory Motor Function Pain Weakness Range of Motion Recreational Activities Meaningful Activities Stiffness Motor Planning Assessment of Improvement Improving active extension of digits of the right hand; however, continued tendency into flexion w/ hand at rest at TT and fatigue w/ active extension of digits (primarily of the 4th and 5th digits). Initiated isometric exercises for digits of the right hand; focus ulnarly (3rd, 4th and 5th digits). Recommend continuing w/ paraffin and e- stim modalities; recommend continuing w/ paraffin, e-stim protocol, isometric exercises of the right hand and progressing to resistance w/ rubberband/theraputty as tolerated. Home Exercise Program No changes to HEP. Education re: importance of compliance w / HEP. Reviewed exercises and answered all questions. Reviewed with Patient/Caregiver Goals Progress Being Made Home Exercise Program Patient/Caregiver Understanding Good - Plan Therapy Recommendations Continue with Current Program Advance per Rehabilitation Protocol Additional Therapy Recommendations Consult w/ OFFSET PRINTING OPERATOR & PT
--- NOTE | 2019-04-11 13:07 | OT.OP.DC ---
Visit Care Team Role Provider Type Brenda Fu MD Primary Care Provider Non-Staff Address: [address] [place] [address], [address] Email: Constance Esqueda MD Attending Provider Physician Address: [facility], [id number], [place], [address] Email: OT Outpatient OT Outpatient Adult Evaluation Start: 02/07/19 14:14 Freq: Status: Active Protocol: Document 02/07/19 14:15 AMS (Rec: 02/07/19 14:36 AMS [email or web address]) General Information Session Time Visit Start Time 12:30 Visit Stop Time 13:18 Total Visit Minutes 48 Visit Information Visit Number 45 visits PCY Plan of Care Dates 02/07/19-05/02/19 Insurance Information 45 PCY PT/OT/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 38 year-old female presented to [facility] 11/28/18 secondary to R UE/LE weakness and numbness, as well as word finding difficulties. MRI completed on 11/28/18; findings were as follows: 2 foci of acute/subacute infarct within the external capsule of the left basal ganglia. Dilated lateral and third ventricles. Mild transependymal edema which may be associated w/ hydrocephalus. CTA head and neck 11/28/18; unremarkable. Prominence of the third and fourth ventricles. CT head ; findings were as follows: dilated lateral ventricles and third ventricle suspicious for hydrocephalus; mild ethmoid sinus mucosal thickening bilaterally. Echo ; 'there is a very small number of bubbles crossing from the right atrium to the left atrium with valsalva maneuver; it is significant for either very small patent foramen ovale or pulmonary shunt'. Patient reported that she has been referred d/t normal pressure hydrocephalus to specialist. Medical History form completed on this date; patient reported that medication list was incomplete . Medications listed included Aspirin, 'high blood pressure' , Lipator, and Neltrexone. Therapy Pain Assessment Pain When Pain Assessed pre-treat Location Generalized Scale Used 1-5; 'Muscle Spasms' ADLs Overall Ability Basic ADLs WFL IADLs Driving Driving Ability Reported driving self. Vocation Vocational Ability Working 8 hours x 4 days. PLOF : 10 hours x 4 days. Cognition Cognitive Assessment Cognitive Assessment c/o word finding difficulties and short term memory loss. Please refer to BREED TO WEAN PRODUCTION TECHNICIAN juan manuelal. Observations Observations Observations Tightness out of typical bebo pattern of the distal R UE; at rest on TT tendency of digits to curl into flexed position particularly of the ulnar side of the hand. Compensatory motor planning observed w/ shoulder circles; (+) elbow flexion observed w/ R w/ UE positioned to the R of the body. Motor Skills Observations 9-Hole Peg Test. Completed in 21.8 sec w/ R hand (3 SD above the mean). Completed in 19.3 sec w/ L hand (1 SD above the mean). Right 35-39 y.o. female norms 16.4 +/- 1.6 Left 35-39 y.o. 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 Increased errors relative to accuracy w / touching of nose and finger w/ EC w/ R UE. WFL w/ L UE w/ EO and EC. Opposition test required increased focus w/ EO and EC relative to R hand. Sensation Assessment Comments Summary Comments Patient reported abnormal sensation of the R UE primarily of the hand. Patient verbalized pain in the wrist and digits of the R hand s/p object manipulation, particularly w/ squeezing objects. Patient indicated pain was like 'arthritis'. Light touch intact of volar surfaces of B hands. Goals Treatment Treatment Initiated HEP; instructed in in-hand manipulation activity of the R hand. Finger opposition w/ small spherical object; shift of object w/ small spherical object w/ R hand. PROM of distal R UE; combination of elbow extension , forearm supination, and wrist and digit extension w/ hold. Strengthening of digit extensors w/ use of light resistance (single rubberband) . Provided written and visual instructions for exercises ( PROM and rubberband exercises given availability). Patient denied questions; recommend reviewing. Short Term Goals Short Term Goals 1. Patient will demonstrate improved fine motor coordination skills, as evidenced by her ability to complete the 9-Hole Peg Test under 18.7 seconds with her right hand. 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 Patient will be mod I with R UE home exercise program utilizing provided written and visual instructions from therapist. Assessment/Plan Assessment Patient Response Good Rehabilitation Potential Good Impairments Identified Coordination/Dexterity Functional Activities Motor Function Pain Weakness Range of Motion Recreational Activities Meaningful Activities Stiffness Motor Planning Treatment Assessment Pt is a 38 year-old right-hand dominant female referred to outpatient OT by neurologist secondary to CVA. PMH: MRI completed 11/28/18: 2 foci of acute/subacute infarct within the external capsule of the left basal ganglia. Dilated lateral and third ventricles. Mild transependymal edema which may be associated w/ hydrocephalus. CTA head and neck 11/28/18; unremarkable. Prominence of the third and fourth ventricles. CT head ; dilated lateral ventricles and third ventricle suspicious for hydrocephalus; mild ethmoid sinus mucosal thickening bilaterally. Echo ; 'there is a very small number of bubbles crossing from the right atrium to the left atrium with valsalva maneuver; it is significant for either very small patent foramen ovale or pulmonary shunt'. Patient reported that she has been referred to specialist d/t normal pressure hydrocephalus. Medications listed included Aspirin, 'high blood pressure', Lipator, and Neltrexone. Patient to be evaluated by outpatient BREED TO WEAN PRODUCTION TECHNICIAN and PT following week. PLOF: Independent w/ basic and instrumental ADLs. 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 Outpatient OT recommended to address these areas identified in the evaluation in order to maximize patient's speed and efficiency w/ execution of meaningful activities in daily life. Home Exercise Program Please refer to treatment section of note for specific details. Reviewed with Patient Goals Home Exercise Program Patient Understanding Good Plan Comment 12 weeks Treatment Frequency Once a Week Therapeutic Contents Active Range of Motion Client Education Cognitive Skills Development Functional Activities Home Exercise Program Manual Therapy Education Neurodevelopment Treatment Neuromuscular Re-Education Self-Care Stretching/Flexibility Activities Therapeutic Activities Therapeutic Exercises Modalities Sensory Re-education Sensory Assessment Sensory Profile2 Functional Wrist/Hand Scan Hand Side OT Outpatient Treatment Note - Adult Start: 02/07/19 14:15 Freq: Status: Active Protocol: Document 04/11/19 13:02 AMS (Rec: 04/11/19 13:07 AMS [id number]) OT Outpatient Adult Treatment Note Visit Information Visit Number 45 visits PCY Plan of Care Dates 02/07/19-05/02/19 Insurance Information 45 PCY PT/OT/BREED TO WEAN PRODUCTION TECHNICIAN Combined Setting Treatment Setting Outpatient Care Visit Type Note Type Discharge Summary General Information General Information Pt is a 38 year-old right-hand dominant female referred to outpatient OT by neurologist secondary to CVA. PMH: MRI completed 11/28/18: 2 foci of acute/subacute infarct within the external capsule of the left basal ganglia. Dilated lateral and third ventricles. Mild transependymal edema which may be associated w/ hydrocephalus. CTA head and neck 11/28/18; unremarkable. Prominence of the third and fourth ventricles. CT head ; dilated lateral ventricles and third ventricle suspicious for hydrocephalus; mild ethmoid sinus mucosal thickening bilaterally. Echo ; 'there is a very small number of bubbles crossing from the right atrium to the left atrium with valsalva maneuver; it is significant for either very small patent foramen ovale or pulmonary shunt'. Patient reported that she has been referred to specialist d/t normal pressure hydrocephalus. Medications listed included Aspirin, 'high blood pressure', Lipator, and Neltrexone. Patient to be evaluated by outpatient BREED TO WEAN PRODUCTION TECHNICIAN and PT following week. PLOF: Independent w/ basic and instrumental ADLs. 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 - Subjective Observations Per Merged With [facility] windows desktop engineer staff, patient requested that all outpatient OT appointments be cancelled given 'that she has a lot going on and is planning on having brain surgery on 04/10/19'. - Objective Objective Measurements Per Merged With [facility] windows desktop engineer staff, patient requested that all outpatient OT appointments be cancelled given 'that she has a lot going on and is planning on having brain surgery on 04/10/19'. Short Term Goals GOALS DISCHARGED 04/11/19 1. Patient will demonstrate improved fine motor coordination skills, as evidenced by her ability to complete the 9-Hole Peg Test under 18.7 seconds with her right hand. Well Drill Operator Cable Tool Goals GOALS DISCHARGED 04/11/19 1. Patient will be mod I with R UE home exercise program utilizing provided written and visual instructions from therapist. - - Assessment Assessment of Improvement Per [facility]erged With [facility] windows desktop engineer staff, patient requested that all outpatient OT appointments be cancelled given 'that she has a lot going on and is planning on having brain surgery on 04/10/19'. It is recommended that patient be d/c from outpatient OT at this time given patient request/plan to have brain surgery; recommend re- evaluating patient in the future as deemed appropriate by PCP. - Plan Therapy Recommendations Discharge from Occupational Therapy
== END 2019-04-22 16:11 | disposition home or self-care (01) ==
LOC: OT 10:30
PROVIDERS: PCP Family Medicine; Visit Provider Psychiatry & Neurology Neurology
DX: I63.9 Cerebral infarction, unspecified (principal)
CPT/HCPCS: 97018; 97032; 97035; 97110; 97165; 97530

== ENCOUNTER 2019-03-21 11:30 | Outpatient (RCR) | payer OTHER, SELFPAY ==
--- NOTE | 2019-02-10 17:17 | ST.OPIE ---
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 Esqueda Reason for Referral CVA Language Evaluation Assessment Type Aphasia/[place] Naming Test Past Medical History Patient History Review of medical records completed. 38 year-old female presented to [facility] 11/28/18 secondary to R UE/LE weakness and numbness, as well as word finding difficulty. MRI completed on 11/28/18; findings were as follows: 2 foci of acute/subacute infarct within the external capsule of the left basal ganglia. Dilated lateral and third ventricles. Mild transependymal edema which may be associated w/ hydrocephalus. CTA head and neck 11/28/18; unremarkable. Prominence of the third and fourth ventricles. CT head ; findings were as follows: dilated lateral ventricles and third ventricle suspicious for hydrocephalus; mild ethmoid sinus mucosal thickening bilaterally. Echo ; 'there is a very small number of bubbles crossing from the right atrium to the left atrium with valsalva maneuver; it is significant for either very small patent foramen ovale or pulmonary shunt'. During pt interview, she reported that she has had difficulty with word-finding and that her work requires that she speak to many people during the day. Often, she has difficulty with describing objects or instructing personnel as she performs her job. Additionally, she reports that her memory is poor, especially her short term memory. 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 Was on time for her appointment - Formal Assessment Standardized Test [place] naming Test Administration Complete Raw Score 43/60 Results The results of the [place] naming test demonstrated that the pt has difficulty with word-finding in a confrontational task. She had difficulty naming approximately 28.4% of the items on the test. Pt reported that her work requires that she speak to many people during the day. Often, she has difficulty with describing objects or instructing personnel as she performs her job. Within the test, the pt is provided with different strategy options as stimuli cues to help the pt find the correct word after demonstrating difficulty. the strategies that were most effective in assisting the pt in saying the correct words were phonemic cues (72% effective) and providing a written multiple choice of 4 words (100% effective). The pt could not name 4 words despite cuing strategies. Given the results of the [place] Naming Test, the patient would benefit from skilled ST to educate and instruct the pt in strategies for word-finding difficulty. - Receptive Language - Expressive Language Object Naming Skill Level Moderately Impaired Oral Expression Skill Level Moderately Impaired Comments Given difficulty with word- finding, Pt communication is disrupted at times. - Recommendations Recommendations Skilled ST services weekly Treatment Goals Short Term Goals The pt will complete a cognitive assessment re: her report of difficulty with her memory. Pt will be educated/instructed in compensatory strategies to assist with word-finding difficulty as reported by pt and determined by clinical data. Ring Maker Goals pt will be able to perform her job duties and use compensatory strategies to be effective.
--- NOTE | 2019-02-19 16:38 | ST.OPIE ---
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 38 year-old female presented to [facility] 11/28/18 secondary to R UE/LE weakness and numbness, as well as word finding difficulty. MRI completed on 11/28/18; findings were as follows: 2 foci of acute/subacute infarct within the external capsule of the left basal ganglia. Dilated lateral and third ventricles. Mild transependymal edema which may be associated w/ hydrocephalus. CTA head and neck 11/28/18; unremarkable. Prominence of the third and fourth ventricles. CT head ; findings were as follows: dilated lateral ventricles and third ventricle suspicious for hydrocephalus; mild ethmoid sinus mucosal thickening bilaterally. Echo ; 'there is a very small number of bubbles crossing from the right atrium to the left atrium with valsalva maneuver; it is significant for either very small patent foramen ovale or pulmonary shunt'. During pt interview, she reported that she has had difficulty with word-finding and that her work requires that she speak to many people during the day. Often, she has difficulty with describing objects or instructing personnel as she performs her job. Additionally, she reports that her memory is poor, especially her short term memory. - Formal Assessment Standardized Test Scales of Cognitive Ability for Neurorehabilitation (SCCAN ) Administration Complete Standard Score 86 Percentile Rank 19 Multiple Scores to Report SCCAN has 8 Subtests assessing cognitive functions Results SCCAN results: Percentage Score Oral Expreression 84% Orientation 100% Memory 89% Speech Comprehension 85% Reading comprehension 92% Writing 86% Attention 75% problem Solving 83 % - Cognition Orientation Skill Level WFL Attention Skill Level Mildly Impaired Problem Solving/Reasoning/Judgment Skill Level WFL Divergent Naming Skill Level WFL Category Naming/Identification Skill Level WFL Sequencing Skill Level WFL Auditory Math Skill Level WFL Clock Drawing Skill Level Mildly Impaired - Memory Short Term Memory Skill Level WFL Immediate Recall Skill Level WFL Word Recall Skill Level WFL Story Recall Skill Level WFL Long-Term Memory Skill Level WFL - Findings Cognitive/Memory Impressions The results of the SCCAN indicated that the pt's cognitive skills were WFL for 7/8 subtests. In the initial interview, Radha reported that she felt her greatest difficulty was in her word- finding skills (see language assessment, last session) and in her memory. She also reported that she has difficulty staying focused when listening to others (she mentioned her boss, specifically). The results of the SCCAN demonstrated that Radha's memory subtest scores were WFL . However, Radha's score for the Attention subtest was 75% , which is interpreted as mildly impaired. Specific skills in the Attention domain that Radha had difficulty with included organizing multiple tasks within a specified time frame, attending to options provided her while computing mental math, missing details when shown a picture of multiple items accuracy on aclock drawing. It isn't known at this time if Summr nikhil always had difficulty with attention to people, detais, etc., or if this is a new phenomena since her CVA. Recommendations Recommendations Therapeutinc intervention designed to address radha's areas of need is recommended and will be implemented. Treatment Goals Short Term Goals Radha will participate in therapeutic exercises to improve her ability to attend with and without distraction based on performance and pt report. [employer] Worker Goals Radha will improve her ability to attend with and without distraction to improve her efficiency at home and at her job. 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 38 year-old female presented to [facility] 11/28/18 secondary to R UE/LE weakness and numbness, as well as word finding difficulty. MRI completed on 11/28/18; findings were as follows: 2 foci of acute/subacute infarct within the external capsule of the left basal ganglia. Dilated lateral and third ventricles. Mild transependymal edema which may be associated w/ hydrocephalus. CTA head and neck 11/28/18; unremarkable. Prominence of the third and fourth ventricles. CT head ; findings were as follows: dilated lateral ventricles and third ventricle suspicious for hydrocephalus; mild ethmoid sinus mucosal thickening bilaterally. Echo ; 'there is a very small number of bubbles crossing from the right atrium to the left atrium with valsalva maneuver; it is significant for either very small patent foramen ovale or pulmonary shunt'. During pt interview, she reported that she has had difficulty with word-finding and that her work requires that she speak to many people during the day. Often, she has difficulty with describing objects or instructing personnel as she performs her job. Additionally, she reports that her memory is poor, especially her short term memory. 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 Was on time for her appointment - Formal Assessment Standardized Test [place] naming Test Administration Complete Raw Score 43/60 Results The results of the [place] naming test demonstrated that the pt has difficulty with word-finding in a confrontational task. She had difficulty naming approximately 28.4% of the items on the test. Pt reported that her work requires that she speak to many people during the day. Often, she has difficulty with describing objects or instructing personnel as she performs her job. Within the test, the pt is provided with different strategy options as stimuli cues to help the pt find the correct word after demonstrating difficulty. the strategies that were most effective in assisting the pt in saying the correct words were phonemic cues (72% effective) and providing a written multiple choice of 4 words (100% effective). The pt could not name 4 words despite cuing strategies. Given the results of the [place] Naming Test, the patient would benefit from skilled ST to educate and instruct the pt in strategies for word-finding difficulty. - Receptive Language - Expressive Language Object Naming Skill Level Moderately Impaired Oral Expression Skill Level Moderately Impaired Comments Given difficulty with word- finding, Pt communication is disrupted at times. - Recommendations Recommendations Skilled ST services weekly Treatment Goals Short Term Goals The pt will complete a cognitive assessment re: her report of difficulty with her memory. Pt will be educated/instructed in compensatory strategies to assist with word-finding difficulty as reported by pt and determined by clinical data. [employer] Worker Goals pt will be able to perform her job duties and use compensatory strategies to be effective.
--- NOTE | 2019-04-22 15:14 | ST.OPDS ---
Care Team Visit Care Team Role Provider Type Brenda Fu MD Primary Care Provider Non-Staff Address: [address] [place] [address], [id number] Constance Esqueda MD Attending Provider Physician Address: [facility], [id number], [place], [address] NUTRITION CONSULTANT Treatment Note NUTRITION CONSULTANT Clinical Instructor Line Start: 03/21/19 15:08 Freq: Status: Active Protocol: Document 03/21/19 15:08 LNK (Rec: 03/21/19 15:09 LNK [id number]) Clinical Instructor Signature Clinical Instructor Clinical Instructor Yes: Erica Dill, PhD , [facility]-NUTRITION CONSULTANT NUTRITION CONSULTANT Treatment Note Start: 02/10/19 15:06 Freq: Status: Active Protocol: Document 04/22/19 15:11 LNK (Rec: 04/22/19 15:14 LNK [email or web address]) Speech Pathology Treatment Note Visit Type Note Type Discharge Summary General Information General Information 38 year-old female presented to [facility] 11/28/18 secondary to R UE/LE weakness and numbness, as well as word finding difficulty. MRI completed on ; findings were as follows: 2 foci of acute/ subacute infarct within the external capsule of the left basal ganglia. Dilated lateral and third ventricles. Mild transependymal edema which may be associated w/hydrocephalus . Pt reported that her work requires that she speak to many people during the day. Often, she has difficulty with describing objects or instructing personnel as she performs her job. Assessments were completed for both cognitive skills as well as word-finding skills. The results of the [place] naming test demonstrated that the pt has difficulty with word- finding in a confrontational task. She had difficulty naming approximately 28.4% of the items on the test. The results of the [employer] demonstrated that Radha's memory subtest scores were WFL . However, Radha's score for the Attention subtest was 75% , which is interpreted as mildly impaired. Specific skills in the Attention domain that Radha had difficulty with included organizing multiple tasks within a specified time frame, attending to options provided her while computing mental math, missing details when shown a picture of multiple items accuracy on a clock drawing. Subjective Rehab Expectation/Goals: Patient Goals Improve her ability to communicate with fellow coworkers. Assessment Impairments Identified Attention Cognitive-Linguistic Skills Expressive Language Assessment of Improvement Radha was seen for 1 evaluation and 3 therapy sessions for cognitive defecits following CVA. Radha has not returned to tis clinic an has cancelled all her appointments. SHe reported that she was scheduled for brain surgery and needed to focus her energy there. Plan Amount of Therapy Recommended No Further Therapy Therapy Recommendations Discharge from Speech Therapy
== END 2019-05-02 11:08 | disposition home or self-care (01) ==
LOC: SP 11:30
PROVIDERS: PCP Family Medicine; Visit Provider Psychiatry & Neurology Neurology
DX: I63.9 Cerebral infarction, unspecified (principal)
CPT/HCPCS: 92507; 96105; 96125

== ENCOUNTER 2021-10-17 16:16 | Emergency (ER) | payer MEDICAID, SELFPAY ==
[2021-10-17 16:22] VITALS: TEMP 36.4
[2021-10-17 16:27] VITALS: BP 177/113; PULSE 117; RESP 20; O2SAT 98
[2021-10-17] MEDS: ONDANSETRON 4 MG ODT SL (16:34)
[2021-10-17 17:17] LABS: COVID19 -Nasal RAPID Negative (Negative)
[2021-10-17 17:58] LABS: Add Manual Diff / Slide Review NO; Basophils Absolute Auto 0 /uL (0-100); Basophils Percent Auto 0.3 % (0-2); Eosinophils Absolute Auto 0 /uL (0-450); Eosinophils Percent Auto 0.1 % (2-4); Hematocrit 46.5 % (36-46); Hemoglobin 16.3 g/dL (12.0-16.0); Lymphocytes Absolute Auto 1400 /uL (1100-4500); Lymphocytes Percent Auto 18.3 % (25-40); Mean Corpuscular HGB Conc 35.1 % (30-36); Mean Corpuscular Hemoglobin 30.1 PG (26-34); Mean Corpuscular Volume 85.8 fL (80-100); Monocytes Absolute Auto 700 /uL (0-900); Monocytes Percent Auto 9.2 % (3-14); Neutrophils Absolute Auto 5600 /uL (1500-7000); Neutrophils Percent Auto 72.1 % (50-75); Platelet Count 272 X10^3/uL (150-400); Red Blood Cell Count 5.42 X10^6/uL (4.0-5.2); Red Cell Distribution Width 14.5 % (11.6-14.8); White Blood Cell Count 7.8 X10^3/uL (4.5-11.0)
[2021-10-17] MEDS: AMLODIPINE 5 MG TABLET 2.5 MG PO (18:09)
[2021-10-17] MEDS: diphenhydrAMINE 50 MG/ML VIAL 25 MG IV (18:09)
[2021-10-17] MEDS: ONDANSETRON 4 MG/2 ML INJ IV (18:10)
[2021-10-17] MEDS: SODIUM CHLORIDE 0.9% 1,000 ML 1000 ML IV (18:10)
[2021-10-17] MEDS: PROMETHAZINE 25 MG TABLET 12.5 MG PO (18:10)
[2021-10-17 18:13] LABS: Alanine Aminotransferase 46 IU/L (<35); Albumin 5.3 g/dL (3.5-5.0); Albumin Globulin Ratio 1.3 (1.0-2.8); Alkaline Phosphatase 132 U/L (38-126); Aspartate Aminotransferase 88 IU/L (14-36); Bilirubin Total 4.5 mg/dL (0.2-1.3); Blood Urea Nitrogen 9 mg/dL (7-17); Calcium 9.6 mg/dL (8.4-10.2); Carbon Dioxide 27 mmol/L (22-32); Chloride 94 mmol/L (98-107); Estimated Glomerular Filt Rate > 60.0 mL/min (>60); Glucose 134 mg/dL (70-100); HEMOLYSIS < 15 (0-50); Lipase 397 U/L (23-300); Potassium 3.4 mmol/L (3.4-5.1); Sodium 133 mmol/L (137-145); Total Protein 9.3 g/dL (6.3-8.2)
[2021-10-17 18:47] LABS: Thyroid Stimulating Hormone 1.39 uIU/mL (0.47-4.68)
--- NOTE | 2021-10-17 19:11 | DI.CT.S_ITS ---
PROCEDURE: CT ABDOMEN PELVIS W CON INDICATIONS: c/f pancreatitis? shunt malfunction? constipation/divertic? TECHNIQUE: After the administration of oral and IV contrast, axial sections were acquired from the lung bases to the pubic symphysis. Coronal and sagittal reformats were performed. For radiation dose reduction, the following was used: automated exposure control, adjustment of mA and/or kV according to patient size. COMPARISON: None. FINDINGS: Image quality: Excellent. Lung bases: Unremarkable. Heart: No significant findings. ABDOMEN: Liver: Hepatic steatosis. Gallbladder: Cholelithiasis without appreciable wall thickening. Biliary ducts: Unremarkable. Pancreas: Unremarkable. Spleen: Unremarkable. Adrenal Glands: Unremarkable. Kidneys and Ureters: Unremarkable. Stomach and Bowel: No evidence of intestinal obstruction. Normal appearance of the appendix. Peritoneum: Small amount of fluid in the pelvis, which may be physiologic or related to the patient's shunt catheter. No free air. Ventral Wall: No hernia. Abdominal Nodes: No retroperitoneal or mesenteric adenopathy by size criteria. Vessels: Aorta and inferior vena cava are normal in size. PELVIS: Pelvic Organs: An intrauterine device is seen. 3 cm hypoattenuating lesion in the left adnexa, likely representing an ovarian cyst. Bladder: Unremarkable. Pelvic Nodes: No enlarged lymph nodes. Miscellaneous: No inguinal hernias are seen. Bones: No significant abnormality. IMPRESSION: 1. 3 cm hypoattenuating lesion in the left adnexa, which may represent an ovarian cyst. 2. Cholelithiasis. Dictated by: Nacho Andres M.D. on 10/17/2021 at 19:39 Approved by: Nacho Andres M.D. on 10/17/2021 at 19:43
[2021-10-17 19:41] VITALS: BP 164/111
[2021-10-17 19:42] VITALS: PULSE 92; O2SAT 99
[2021-10-17] MEDS: KETOROLAC 30 MG/ML VIAL 15 MG IV (19:49)
--- NOTE | 2021-10-17 20:14 | ED.NAVMDI ---
HPI - Nausea/Vomiting/Diarrhea <NYLA Andujar - Last Filed: 10/17/21 21:16> General Chief complaint: Nausea/Vomiting/Diarrhea Stated complaint: THROWING UP T-2, CANT HOLD ANYTHING DOWN Time Seen by Provider: 10/17/21 16:59 Source: patient Mode of arrival: Ambulatory History of Present Illness HPI Narrative: 41-year-old female presents emergency department with complaint of nausea and vomiting for the last 2 days. Patient reports that she has a history of a stroke, she does have a shunt, she was recently hospitalized over [facility] for evaluation of the shunt, she was discharged 2 weeks ago without any malfunction or issues with it, she does not have any headache, dizziness, or neurological complaints. She is here for nausea and vomiting and lower left quadrant pain which has ongoing for last 2 days, she denies any recent fever, she has an appointment with her primary care provider tomorrow morning, she denies any diarrhea, reports that she has been constipated normally will 1 bowel movement over the last 4 days. She also reports that she has been on O2 to keep much down so she probably does much stool in her colon. She denies any history of abdominal surgeries, has not had a history of cholecystitis, pancreatitis, she reports drinking alcohol only occasionally, she has not been on any antibiotics recently either. She is allergic to sulfa. Patient reports her abdomen is nontender, she is not in thinking about abdominal pain problem she only knows that she has been nauseated and vomiting and feeling fatigued. Related Data Home Medications Medication Instructions Recorded Confirmed lisinopril 40 mg tablet 11/09/18 lisinopril 40 mg tablet 11/09/18 Previous Rx's Medication Instructions Recorded sertraline 50 mg tablet 50 mg PO QDAY #30 tab 08/10/16 doxycycline hyclate 100 mg capsule 100 mg PO BID #14 cap 01/22/18 norethindrone acetate 1.5 1 tab PO Q DAY #3 pac 05/07/18 mg-ethinyl estradiol 30 mcg tablet (Loestrin) oxycodone-acetaminophen 5 mg-325 1 tab PO Q8H PRN #10 tab 10/17/21 mg tablet (Percocet) promethazine 12.5 mg tablet 12.5 mg PO BID PRN #14 tab 10/17/21 Allergies Allergy/AdvReac Type Severity Reaction Status Date / Time Sulfa (Sulfonamide Allergy Unknown Verified 11/09/18 18:36 Antibiotics) [SULFA (SULFONAMIDE ANTIBIOTICS)] Review of Systems <NYLA Andujar - Last Filed: 10/17/21 21:16> Review of Systems Narrative: General: denies fever, chills Head/Neck: denies headache, neck pain Eyes: denies visual changes, eye pain Cardio: denies chest pain, palpitations Respiratory: denies shortness of breath, cough GI: Endorses nausea, and vomiting x2 days, patient denies any diarrhea, denies any right upper quadrant pain, reports some mild lower left quadrant pain : denies dysuria, hematuria MSK: denies joint pain, muscle weakness Skin: denies rash, itching Neuro: denies numbness, tingling Patient History <NYLA Andujar - Last Filed: 10/17/21 21:16> Medical History (Updated 10/17/21 @ 21:11 by NYLA Andujar) Hypertension Social History Smoking Status: Current some day smoker Smoking Status: Current some day smoker alcohol intake frequency: 0-2 drinks per day Substance Use Type: marijuana Exam <NYLA Andujar - Last Filed: 10/17/21 21:16> Narrative Exam Narrative: Independently reviewed vitals signs and nursing notes. General: Awake, alert, nontoxic, no cardiorespiratory distress, appears fatigued Head/Neck: Atraumatic, neck full range of motion Eyes: EOMI, conjunctiva normal Nose: nares patent, no rhinorrhea Mouth/Throat: moist mucus membranes, posterior pharynx normal, no oral lesions Cardio: Regular rate and rhythm, no peripheral edema Respiratory: respirations unlabored without wheezing, stridor, or rales. No retractions. GI: Abdomen soft, nontender to palpation MSK: Moves all extremities, neurovascularly intact Skin: Normal capillary refill, no rash Neuro: Normal speech and cognition, normal gait Initial Vital Signs Initial Vital Signs: Vital Signs Temperature 97.6 F 10/17/21 16:22 <Sebastian Benites MD - Last Filed: 10/18/21 01:34> Initial Vital Signs Initial Vital Signs: Vital Signs Temperature 97.6 F 10/17/21 16:22 Course <NYLA Andujar - Last Filed: 10/17/21 21:16> Orders Ordered: ED Orders 10/17/21 17:52 Complete Blood Count AUTO DIFF Stat Comprehensive Metabolic Panel Stat Lipase Stat Thyroid Stimulating Hormone Stat 10/17/21 19:11 CT abdomen pelvis w con Stat 10/17/21 20:18 US abdomen limited Stat Discontinued Medications Amlodipine Besylate (Amlodipine 5 Mg Tablet) 2.5 mg PO NOW ONE Stop: 10/17/21 17:11 Last Admin: 10/17/21 18:09 Dose: 2.5 mg Documented by: MARYSOL Diphenhydramine HCl (Diphenhydramine 50 Mg/Ml Vial) 25 mg IV NOW ONE Stop: 10/17/21 17:01 Last Admin: 10/17/21 18:09 Dose: 25 mg Documented by: MARYSOL Hydromorphone HCl (Hydromorphone 0.5 Mg Inj) 0.5 mg IV NOW ONE Stop: 10/17/21 20:25 Last Admin: 10/17/21 20:40 Dose: 0.5 mg Documented by: PAULINA Sodium Chloride (Normal Saline 0.9%) 1,000 mls @ 1,000 mls/hr IV BOLUS ONE Stop: 10/17/21 17:59 Last Infusion: 10/17/21 19:43 Dose: 0 mls/hr Documented by: Admin: 10/17/21 18:10 Dose: 1,000 mls/hr Documented by: MARYSOL Ketorolac Tromethamine (Ketorolac 30 Mg/Ml Vial) 15 mg IV NOW ONE Stop: 10/17/21 19:13 Last Admin: 10/17/21 19:49 Dose: 15 mg Documented by: PAULINA Ondansetron HCl (Ondansetron 4 Mg Odt) 4 mg SL NOW ONE Stop: 10/17/21 16:30 Last Admin: 10/17/21 16:34 Dose: 4 mg Documented by: MARYSOL Ondansetron HCl (Ondansetron 4 Mg/2 Ml Inj) 4 mg IV NOW ONE Stop: 10/17/21 17:01 Last Admin: 10/17/21 18:10 Dose: 4 mg Documented by: MARYSOL Oxycodone/Acetaminophen (Oxycodone/Acetaminophen 5/325 Tablet) 1 tab PO NOW ONE Stop: 10/17/21 21:02 Last Admin: 10/17/21 21:27 Dose: 1 tab Documented by: PAULINA Promethazine HCl (Promethazine 25 Mg Tablet) 12.5 mg PO NOW ONE Stop: 10/17/21 17:12 Last Admin: 10/17/21 18:10 Dose: 12.5 mg Documented by: MARYSOL Reevaluation(s) Reevaluation #1: Patient reports feeling much better after Toradol and Phenergan she does complain of some ongoing discomfort but her nausea is improved. Her CT abdomen pelvis indicates cholelithiasis, ultrasound was in for a right upper quadrant abdomen limited. Vital Signs Vital signs: Vital Signs - 8 hr 10/17/21 19:41 10/17/21 19:42 10/17/21 21:32 Pulse Rate 92 H 89 Respiratory Rate 16 Blood Pressure 164/111 H 158/107 H Pulse Oximetry 99 97 <Sebastian Benites MD - Last Filed: 10/18/21 01:34> Orders Ordered: ED Orders 10/17/21 17:52 Complete Blood Count AUTO DIFF Stat Comprehensive Metabolic Panel Stat Lipase Stat Thyroid Stimulating Hormone Stat 10/17/21 19:11 CT abdomen pelvis w con Stat 10/17/21 20:18 US abdomen limited Stat Discontinued Medications Amlodipine Besylate (Amlodipine 5 Mg Tablet) 2.5 mg PO NOW ONE Stop: 10/17/21 17:11 Last Admin: 10/17/21 18:09 Dose: 2.5 mg Documented by: MARYSOL Diphenhydramine HCl (Diphenhydramine 50 Mg/Ml Vial) 25 mg IV NOW ONE Stop: 10/17/21 17:01 Last Admin: 10/17/21 18:09 Dose: 25 mg Documented by: MARYSOL Hydromorphone HCl (Hydromorphone 0.5 Mg Inj) 0.5 mg IV NOW ONE Stop: 10/17/21 20:25 Last Admin: 10/17/21 20:40 Dose: 0.5 mg Documented by: PAULINA Sodium Chloride (Normal Saline 0.9%) 1,000 mls @ 1,000 mls/hr IV BOLUS ONE Stop: 10/17/21 17:59 Last Infusion: 10/17/21 19:43 Dose: 0 mls/hr Documented by: Admin: 10/17/21 18:10 Dose: 1,000 mls/hr Documented by: MARYSOL Ketorolac Tromethamine (Ketorolac 30 Mg/Ml Vial) 15 mg IV NOW ONE Stop: 10/17/21 19:13 Last Admin: 10/17/21 19:49 Dose: 15 mg Documented by: PAULINA Ondansetron HCl (Ondansetron 4 Mg Odt) 4 mg SL NOW ONE Stop: 10/17/21 16:30 Last Admin: 10/17/21 16:34 Dose: 4 mg Documented by: MARYSOL Ondansetron HCl (Ondansetron 4 Mg/2 Ml Inj) 4 mg IV NOW ONE Stop: 10/17/21 17:01 Last Admin: 10/17/21 18:10 Dose: 4 mg Documented by: MARYSOL Oxycodone/Acetaminophen (Oxycodone/Acetaminophen 5/325 Tablet) 1 tab PO NOW ONE Stop: 10/17/21 21:02 Last Admin: 10/17/21 21:27 Dose: 1 tab Documented by: PAULINA Promethazine HCl (Promethazine 25 Mg Tablet) 12.5 mg PO NOW ONE Stop: 10/17/21 17:12 Last Admin: 10/17/21 18:10 Dose: 12.5 mg Documented by: MARYSOL Vital Signs Vital signs: Vital Signs - 8 hr 10/17/21 19:41 10/17/21 19:42 10/17/21 21:32 Pulse Rate 92 H 89 Respiratory Rate 16 Blood Pressure 164/111 H 158/107 H Pulse Oximetry 99 97 MDM - Nausea/Vomiting/Diarrhea <NYLA Andujar - Last Filed: 10/17/21 21:16> Lab Data Result diagrams: 10/17/21 17:52 10/17/21 17:52 Labs: Lab Results 10/17/21 10/17/21 10/17/21 Range/Units 16:30 17:52 17:52 WBC 7.8 (4.5-11.0) X10^3/uL RBC 5.42 H (4.0-5.2) X10^6/uL Hgb 16.3 H (12.0-16.0) g/dL Hct 46.5 H (36-46) % MCV 85.8 (80-100) fL MCH 30.1 (26-34) PG MCHC 35.1 (30-36) % RDW 14.5 (11.6-14.8) % Plt Count 272 (150-400) X10^3/uL Neut % (Auto) 72.1 (50-75) % Lymph % (Auto) 18.3 L (25-40) % [place] % (Auto) 9.2 (3-14) % Eos % (Auto) 0.1 L (2-4) % Baso % (Auto) 0.3 (0-2) % Neut # (Auto) 5600 (9334-9929) /uL Lymph # (Auto) 1400 (9803-2071) /uL [place] # (Auto) 700 (0-900) /uL Eos # (Auto) 0 (0-450) /uL Baso # (Auto) 0 (0-100) /uL Sodium 133 L (137-145) mmol/L Potassium 3.4 (3.4-5.1) mmol/L Chloride 94 L (98-107) mmol/L Carbon Dioxide 27 (22-32) mmol/L BUN 9 (7-17) mg/dL Creatinine 0.75 (0.52-1.04) mg/dL Estimated GFR > 60.0 (>60) mL/min BUN/Creatinine Ratio 12.0 (6-22) Glucose 134 H (70-100) mg/dL Calcium 9.6 (8.4-10.2) mg/dL Total Bilirubin 4.5 H (0.2-1.3) mg/dL AST 88 H (14-36) IU/L ALT 46 H (<35) IU/L Alkaline Phosphatase 132 H (38-126) U/L Total Protein 9.3 H (6.3-8.2) g/dL Albumin 5.3 H (3.5-5.0) g/dL Globulin 4.0 (1.7-4.1) g/dL Albumin/Globulin Ratio 1.3 (1.0-2.8) Lipase 397 H (23-300) U/L TSH (0.47-4.68) uIU/mL SARS-CoV-2 (PCR) Negative (Negative) 10/17/21 Range/Units 17:52 WBC (4.5-11.0) X10^3/uL RBC (4.0-5.2) X10^6/uL Hgb (12.0-16.0) g/dL Hct (36-46) % MCV (80-100) fL MCH (26-34) PG MCHC (30-36) % RDW (11.6-14.8) % Plt Count (150-400) X10^3/uL Neut % (Auto) (50-75) % Lymph % (Auto) (25-40) % [place] % (Auto) (3-14) % Eos % (Auto) (2-4) % Baso % (Auto) (0-2) % Neut # (Auto) (3905-2002) /uL Lymph # (Auto) (1550-1506) /uL [place] # (Auto) (0-900) /uL Eos # (Auto) (0-450) /uL Baso # (Auto) (0-100) /uL Sodium (137-145) mmol/L Potassium (3.4-5.1) mmol/L Chloride (98-107) mmol/L Carbon Dioxide (22-32) mmol/L BUN (7-17) mg/dL Creatinine (0.52-1.04) mg/dL Estimated GFR (>60) mL/min BUN/Creatinine Ratio (6-22) Glucose (70-100) mg/dL Calcium (8.4-10.2) mg/dL Total Bilirubin (0.2-1.3) mg/dL AST (14-36) IU/L ALT (<35) IU/L Alkaline Phosphatase (38-126) U/L Total Protein (6.3-8.2) g/dL Albumin (3.5-5.0) g/dL Globulin (1.7-4.1) g/dL Albumin/Globulin Ratio (1.0-2.8) Lipase (23-300) U/L TSH 1.39 (0.47-4.68) uIU/mL SARS-CoV-2 (PCR) (Negative) Point of Care Testing Test Results Negative Urine Dip Bedside Urine Glucose Negative Bedside Urine Bilirubin - Negative Bedside Urine Ketone +/- 5 Urine Specific [place] 1.005 Bedside Urine Occult Blood - Negative Bedside Urine pH 6.5 Bedside Urine Protein - Negative Bedside Urine Urobilinogen - Negative Bedside Urine Nitrite - Negative Bedside Urine Leukocytes - Negative Esterase Imaging Data CT scan - abdomen/pelvis: Radiologist's Impression: PROCEDURE:? CT ABDOMEN PELVIS W CON ? INDICATIONS:? c/f pancreatitis? shunt malfunction? constipation/divertic? ? TECHNIQUE:? After the administration of oral and IV contrast, axial sections were acquired from the lung bases to the pubic symphysis.? Coronal and sagittal reformats were performed.? For radiation dose reduction, the following was used:? automated exposure control, adjustment of mA and/or kV according to patient size. ? COMPARISON:? None. ? FINDINGS:? Image quality:? Excellent.? ? Lung bases:? Unremarkable.? ? Heart:? No significant findings. ? ? ABDOMEN: Liver:? Hepatic steatosis.? ? Gallbladder:? Cholelithiasis without appreciable wall thickening.? ? Biliary ducts:? Unremarkable.? ? Pancreas:? Unremarkable.? ? Spleen:? Unremarkable.? ? Adrenal Glands:? Unremarkable.? ? Kidneys and Ureters:? Unremarkable.? ? ? Stomach and Bowel:? No evidence of intestinal obstruction.? Normal appearance of the appendix. Peritoneum:? Small amount of fluid in the pelvis, which may be physiologic or related to the patient's shunt catheter.? No free air.? ? Ventral Wall: ? No hernia.? Abdominal Nodes:? No retroperitoneal or mesenteric adenopathy by size criteria.? Vessels:? Aorta and inferior vena cava are normal in size.? ? PELVIS: Pelvic Organs:? An intrauterine device is seen.? 3 cm hypoattenuating lesion in the left adnexa, likely representing an ovarian cyst. Bladder:? Unremarkable.? ? Pelvic Nodes: No enlarged lymph nodes.? Miscellaneous: No inguinal hernias are seen. ? ? ? Bones:? No significant abnormality. ? ? IMPRESSION:? 1. 3 cm hypoattenuating lesion in the left adnexa, which may represent an ovarian cyst. 2. Cholelithiasis.? ? ? Dictated by: Nacho Andres M.D. on 10/17/2021 at 19:39 ? ? Approved by: Nacho Anders M.D. on 10/17/2021 at 19:43 ? MDM Narrative Medical decision making narrative: 41-year-old female presented to the emergency department today with concern about nausea and vomiting for the last 2 days. Patient was recently discharged from [facility] without any options to she is complaining of fatigue since her CVA and has a neurologist as well as a primary care appointment tomorrow for re-evaluation. On workup, she did not have a leukocytosis, her sodium was 133, her liver enzymes are mildly elevated AST is 88, ALT is 46 is 130, her lipase is 397 without prior to compare with. Her COVID PCR was negative. CT abdomen pelvis indicates 83 cm lesion in the left adnexa which likely represents an ovarian cyst, also cholelithiasis without appreciable wall thickening. Because of her elevated lipase and mildly elevated liver enzymes ultrasound was called in for a limited abdomen ultrasound. Her ultrasound showed 2 gallstones and some sludge in her gallbladder, gallstones were non mobile, no bile duct occlusion, and no cholecystitis. Patient is going to follow-up with her primary care provider with all of this information in the morning at her appointment. Referral was sent over to Dr. Montilla for evaluation if she continues to have symptoms. Patient is appropriate and amenable to discharge home. Vital signs are stable on repeat examination is unremarkable. Patient has been informed of results. Patient has been given strict return to ER precautions for any new or worsening symptoms. Patient understands to follow up closely with outpatient providers as instructed. Patient understands plan and agrees to discharge home. All questions and concerns answered at this time. <Sebastian Benites MD - Last Filed: 10/18/21 01:34> Lab Data Labs: Lab Results 10/17/21 10/17/21 10/17/21 Range/Units 16:30 17:52 17:52 WBC 7.8 (4.5-11.0) X10^3/uL RBC 5.42 H (4.0-5.2) X10^6/uL Hgb 16.3 H (12.0-16.0) g/dL Hct 46.5 H (36-46) % MCV 85.8 (80-100) fL MCH 30.1 (26-34) PG MCHC 35.1 (30-36) % RDW 14.5 (11.6-14.8) % Plt Count 272 (150-400) X10^3/uL Neut % (Auto) 72.1 (50-75) % Lymph % (Auto) 18.3 L (25-40) % [place] % (Auto) 9.2 (3-14) % Eos % (Auto) 0.1 L (2-4) % Baso % (Auto) 0.3 (0-2) % Neut # (Auto) 5600 (4242-5181) /uL Lymph # (Auto) 1400 (6276-2455) /uL [place] # (Auto) 700 (0-900) /uL Eos # (Auto) 0 (0-450) /uL Baso # (Auto) 0 (0-100) /uL Sodium 133 L (137-145) mmol/L Potassium 3.4 (3.4-5.1) mmol/L Chloride 94 L (98-107) mmol/L Carbon Dioxide 27 (22-32) mmol/L BUN 9 (7-17) mg/dL Creatinine 0.75 (0.52-1.04) mg/dL Estimated GFR > 60.0 (>60) mL/min BUN/Creatinine Ratio 12.0 (6-22) Glucose 134 H (70-100) mg/dL Calcium 9.6 (8.4-10.2) mg/dL Total Bilirubin 4.5 H (0.2-1.3) mg/dL AST 88 H (14-36) IU/L ALT 46 H (<35) IU/L Alkaline Phosphatase 132 H (38-126) U/L Total Protein 9.3 H (6.3-8.2) g/dL Albumin 5.3 H (3.5-5.0) g/dL Globulin 4.0 (1.7-4.1) g/dL Albumin/Globulin Ratio 1.3 (1.0-2.8) Lipase 397 H (23-300) U/L TSH (0.47-4.68) uIU/mL SARS-CoV-2 (PCR) Negative (Negative) 10/17/21 Range/Units 17:52 WBC (4.5-11.0) X10^3/uL RBC (4.0-5.2) X10^6/uL Hgb (12.0-16.0) g/dL Hct (36-46) % MCV (80-100) fL MCH (26-34) PG MCHC (30-36) % RDW (11.6-14.8) % Plt Count (150-400) X10^3/uL Neut % (Auto) (50-75) % Lymph % (Auto) (25-40) % [place] % (Auto) (3-14) % Eos % (Auto) (2-4) % Baso % (Auto) (0-2) % Neut # (Auto) (9793-1738) /uL Lymph # (Auto) (6594-0055) /uL [place] # (Auto) (0-900) /uL Eos # (Auto) (0-450) /uL Baso # (Auto) (0-100) /uL Sodium (137-145) mmol/L Potassium (3.4-5.1) mmol/L Chloride (98-107) mmol/L Carbon Dioxide (22-32) mmol/L BUN (7-17) mg/dL Creatinine (0.52-1.04) mg/dL Estimated GFR (>60) mL/min BUN/Creatinine Ratio (6-22) Glucose (70-100) mg/dL Calcium (8.4-10.2) mg/dL Total Bilirubin (0.2-1.3) mg/dL AST (14-36) IU/L ALT (<35) IU/L Alkaline Phosphatase (38-126) U/L Total Protein (6.3-8.2) g/dL Albumin (3.5-5.0) g/dL Globulin (1.7-4.1) g/dL Albumin/Globulin Ratio (1.0-2.8) Lipase (23-300) U/L TSH 1.39 (0.47-4.68) uIU/mL SARS-CoV-2 (PCR) (Negative) Point of Care Testing Test Results Negative Urine Dip Bedside Urine Glucose Negative Bedside Urine Bilirubin - Negative Bedside Urine Ketone +/- 5 Urine Specific [place] 1.005 Bedside Urine Occult Blood - Negative Bedside Urine pH 6.5 Bedside Urine Protein - Negative Bedside Urine Urobilinogen - Negative Bedside Urine Nitrite - Negative Bedside Urine Leukocytes - Negative Esterase Discharge Plan Departure Patient Disposition: Home Clinical Impression: Left ovarian cyst Cholelithiasis Qualifiers: Cholelithiasis location: gallbladder Cholecystitis presence: without cholecystitis Biliary obstruction: without biliary obstruction Qualified Code(s): K80.20 - Calculus of gallbladder without cholecystitis without obstruction Instructions: Eating a Diet Low in Saturated Fat, Trans Fat, and Cholesterol, DI for Gallstones, DI for Ovarian Cyst Activity Restrictions/Additional Instructions: *You have been diagnosed with gallstones in your gallbladder, and a left ovarian cyst which both might be causing your nausea and vomiting. Your lipase was also elevated which may indicate mild pancreatitis although it did not appear that way on CT scan. You do not need antibiotics at this time, I help that you feel better soon. Please go to your appointment in the morning, talked about everything the told me about which is concerning to you. Letter that we found the likely cause for your nausea vomiting, your focus with your primary care provider can be now to address your fatigue and other related symptoms. Please follow-up with your neurologist as well, I think this is a good person for you to have another appointment with since you are continuing to have symptoms. *What to do: *Please continue to take your regular medications as directed. [ x] New medication prescriptions sent to your pharmacy: [[facility] ] [ ] New medication written as a paper prescription [ ] No new medications given *Please follow up with your primary care provider in 2-3 days, call for an appointment. Let them know you were seen in the Emergency Department and that we ask that you be seen in follow up. We will electronically transmit a record of today's note if your PCP is in our system *If you do not have a primary care provider please contact the [facility] Resource line at [phone]. They will ask some questions about your medical history and help get you set up with a doctor in the community. *Return to Emergency Department if you should have any new, worsening or concerning symptoms, such as [fever greater than 101F, chills, worsening pain, persistent vomiting or other bothersome symptoms] Prescriptions: New promethazine 12.5 mg tablet 12.5 mg PO BID PRN (Reason: nausea and vomiting) Qty: 14 0RF oxycodone-acetaminophen [Percocet] 5-325 mg tablet 1 tab PO Q8H PRN (Reason: pain) Qty: 10 0RF No Action sertraline 50 MG tablet 50 mg PO QDAY Qty: 30 0RF doxycycline hyclate 100 MG capsule 100 mg PO BID Qty: 14 0RF norethindrone ac-eth estradiol [Loestrin 1.5/30 (21)] 1.5-30 mg-mcg tablet 1 tab PO Q DAY Qty: 3 4RF lisinopril 40 mg tablet 0RF Label Comments: TAKE 1 TABLET BY MOUTH EVERY DAY FOR HIGH BLOOD PRESSURE lisinopril 40 mg tablet 0RF Label Comments: TAKE 1 TABLET BY MOUTH EVERY DAY FOR HIGH BLOOD PRESSURE Referrals: Liz Montilla MD [Physician] - 3-5 days <Sebastian Benites MD - Last Filed: 10/18/21 01:34> Cosign ED Attending Cosignature Attestation: I was immediately available in the department for consultation. This documentation has been reviewed and I agree with assessment and plan. Supervised by Sebastian Benites MD
--- NOTE | 2021-10-17 20:18 | DI.US.S_ITS ---
PROCEDURE: US ABDOMEN LIMITED INDICATIONS: POSSIBLE CHOLECYSTITIS TECHNIQUE: Real-time focused scanning was performed of the abdomen, with image documentation. COMPARISON: [facility], CT, CT ABDOMEN PELVIS W CON, 10/17/2021, 19:23. FINDINGS: Liver: No significant abnormality. Gallbladder: No gallbladder wall thickening, pericholecystic fluid, or sonographic Rayo sign. Two non-mobile echogenic gallstones are seen, measuring up to 1.6 cm. CBD: 3.8 mm. Pancreas: Not well seen. IMPRESSION: Cholelithiasis. Dictated by: Nacho Andres M.D. on 10/17/2021 at 21:19 Approved by: Nacho Andres M.D. on 10/17/2021 at 21:21
[2021-10-17] MEDS: HYDROMORPHONE 0.5 MG INJ IV (20:40)
[2021-10-17] MEDS: OXYCODONE/ACETAMINOPHEN 5/325 TABLET 1 TAB PO (21:27)
[2021-10-17 21:32] VITALS: BP 158/107; PULSE 89; RESP 16; O2SAT 97
== END 2021-10-17 21:32 | disposition home or self-care (01) ==
PROVIDERS: Emergency Medicine; Emergency Provider Nurse Practitioner Critical Care Medicine
DX: K80.20 Calculus of gallbladder without cholecystitis without obstruction (principal); N83.202 Unspecified ovarian cyst, left side; Z20.822 Contact with and (suspected) exposure to COVID-19
CPT/HCPCS: 36415; 74177; 76705; 80053; 81003; 81025; 83690; 84443; 85025; 87635; 96361; 96374; 96375; 99284; 99285; C9803; J1170; J1200; J1885; J2405; Q9967

== ENCOUNTER 2022-01-05 08:27 | Emergency (ER) | payer MEDICAID, SELFPAY ==
[2022-01-05 08:54] VITALS: BP 164/112; PULSE 107; RESP 18; TEMP 37; O2SAT 98; BMI 25.4
--- NOTE | 2022-01-05 09:00 | ED_ITS ---
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 She says that she has been throwing up nonstop unable to keep anything down but a cup of peaches. She was able to urinate for us here. She has pain all over her body. She was found to have cholelithiasis in October she is scheduled to see GI doctor him 3 weeks. She was told to stay away from fatty foods until then but she did have some fried food about 2 days ago. No on else is sick. She has body aches all over. She complains of getting dizzy and lightheaded whenever she stands up to walk. No numbness tingling or weakness. Related Data Home Medications Medication Instructions Recorded Confirmed lisinopril 40 mg tablet 11/09/18 lisinopril 40 mg tablet 11/09/18 Previous Rx's Medication Instructions Recorded sertraline 50 mg tablet 50 mg PO QDAY #30 tab 08/10/16 doxycycline hyclate 100 mg capsule 100 mg PO BID #14 cap 01/22/18 norethindrone acetate 1.5 1 tab PO Q DAY #3 pac 05/07/18 mg-ethinyl estradiol 30 mcg tablet (Loestrin) oxycodone-acetaminophen 5 mg-325 1 tab PO Q8H PRN #10 tab 10/17/21 mg tablet (Percocet) promethazine 12.5 mg tablet 12.5 mg PO BID PRN #14 tab 10/17/21 ondansetron 4 mg disintegrating 4 mg PO Q8H PRN #10 tab 01/05/22 tablet Allergies Allergy/AdvReac Type Severity Reaction Status Date / Time Sulfa (Sulfonamide Allergy Unknown Verified 11/09/18 18:36 Antibiotics) [SULFA (SULFONAMIDE ANTIBIOTICS)] Review of Systems Review of Systems Narrative: GENERAL: Denies chills, fatigue, malaise, fever, sweats, travel HEENT: Denies sinus pain, ear pain, sore throat, difficulty swallowing, neck pain RESPIRATORY: Denies dyspnea, cough, wheezing, hemoptysis, sputum. CARDIOVASCULAR: Denies chest pain, palpitations, orthopnea, edema GASTROINTESTINAL: See HPI : Denies dysuria, frequency, incontinence, hematuria, urinary retention, flank pain. MUSCULOSKELETAL: Denies weakness, joint pain, or bony pain SKIN: No rash, no erythema, no pruritus NEUROLOGIC: Denies weakness, dizziness, headache, numbness, change in speech, confusion PSYCHIATRIC: No concerning psychosocial issues. 12 point review of systems is negative except for those stated above and HPI Patient History Medical History (Updated 01/05/22 @ 10:34 by Lima Ervin DO) Hypertension Social History Smoking Status: Current some day smoker Smoking Status: Current some day smoker alcohol intake frequency: 0-2 drinks per day Substance Use Type: marijuana Exam Initial Vital Signs Initial Vital Signs: Vital Signs Temperature 98.6 F 01/05/22 08:54 Pulse Rate 107 H 01/05/22 08:54 Respiratory Rate 18 01/05/22 08:54 Blood Pressure 164/112 H 01/05/22 08:54 Pulse Oximetry 98 01/05/22 08:54 GENERAL: 41-year-old female appears to not feel well HEENT: Head atraumatic,EOMI, pupils reactive, face symmetric, moist mucous membranes CARDIOVASCULAR: Regular rate and rhythm without murmurs, rubs or gallops. RESPIRATORY: Breath sounds equal bilaterally, no wheezes rales or rhonchi. ABDOMEN: Soft, diffusely tender no distension no guarding or rebound : No CVA tenderness EXTREMITIES: Normal range of motion, no clubbing or edema. Neurovascularly intact NEUROLOGICAL: Alert and oriented x4.Normal gait and speech. SKIN: Warm, dry, no laceration, no petechiae, no rashes or lesions. Course Orders Ordered: ED Orders 01/05/22 10:34 US abdomen limited Stat Discontinued Medications Sodium Chloride (Normal Saline 0.9%) 1,000 mls @ 1,000 mls/hr IV BOLUS ONE Stop: 01/05/22 09:59 Last Infusion: 01/05/22 10:10 Dose: 0 mls/hr Documented by: Admin: 01/05/22 09:14 Dose: 1,000 mls/hr Documented by: DONNIE Ketorolac Tromethamine (Ketorolac 30 Mg/Ml Vial) 15 mg IV NOW ONE Stop: 01/05/22 09:01 Last Admin: 01/05/22 09:14 Dose: 15 mg Documented by: DONNIE Ondansetron HCl (Ondansetron 4 Mg/2 Ml Inj) 4 mg IV NOW ONE Stop: 01/05/22 09:01 Last Admin: 01/05/22 09:14 Dose: 4 mg Documented by: DONNIE Vital Signs Vital signs: Vital Signs - 8 hr 01/05/22 11:36 Pulse Rate 88 Respiratory Rate 16 Pulse Oximetry 97 MDM - Abdominal Pain Lab Data Result diagrams: 01/05/22 09:20 01/05/22 09:20 Labs: Lab Results 01/05/22 01/05/22 Range/Units 09:20 09:20 WBC 10.1 (4.5-11.0) X10^3/uL RBC 4.75 (4.0-5.2) X10^6/uL Hgb 14.3 (12.0-16.0) g/dL Hct 42.0 (36-46) % MCV 88.3 (80-100) fL MCH 30.1 (26-34) PG MCHC 34.1 (30-36) % RDW 15.1 H (11.6-14.8) % Plt Count 283 (150-400) X10^3/uL Neut % (Auto) 88.6 H (50-75) % Lymph % (Auto) 8.6 L (25-40) % [place] % (Auto) 2.5 L (3-14) % Eos % (Auto) 0.0 L (2-4) % Baso % (Auto) 0.3 (0-2) % Neut # (Auto) 8900 H (3657-2695) /uL Lymph # (Auto) 900 L (7008-3617) /uL [place] # (Auto) 300 (0-900) /uL Eos # (Auto) 0 (0-450) /uL Baso # (Auto) 0 (0-100) /uL Sodium 137 (137-145) mmol/L Potassium 3.4 (3.4-5.1) mmol/L Chloride 101 (98-107) mmol/L Carbon Dioxide 22 (22-32) mmol/L BUN 11 (7-17) mg/dL Creatinine 0.55 (0.52-1.04) mg/dL Estimated GFR > 60.0 (>60) mL/min BUN/Creatinine Ratio 20.0 (6-22) Glucose 152 H (70-100) mg/dL Calcium 10.2 (8.4-10.2) mg/dL Total Bilirubin 1.5 H (0.2-1.3) mg/dL AST 36 (14-36) IU/L ALT 30 (<35) IU/L Alkaline Phosphatase 81 (38-126) U/L Total Protein 9.1 H (6.3-8.2) g/dL Albumin 5.3 H (3.5-5.0) g/dL Globulin 3.8 (1.7-4.1) g/dL Albumin/Globulin Ratio 1.4 (1.0-2.8) Lipase 133 (23-300) U/L Point of care testing: Point of Care Testing Test Results Negative Urine Dip Bedside Urine Bilirubin - Negative Bedside Urine Ketone +++ 80 Urine Specific [place] 1.025 Bedside Urine Occult Blood - Negative Bedside Urine pH 6.0 Bedside Urine Protein + 30 Bedside Urine Urobilinogen - Negative Imaging Data US - abdomen: Radiologist's Impression: PROCEDURE: US ABDOMEN LIMITED ? INDICATIONS:? ELEVATED BILIRUBIN; KNOWN GALLSTONES ? TECHNIQUE:? Real-time focused scanning was performed of the abdomen, with image documentation.? ? COMPARISON:? [facility], CT, CT ABDOMEN PELVIS W CON, 10/17/2021, 19:23.? [facility], US, US ABDOMEN LIMITED, 10/17/2021, 20:44. ? FINDINGS:? Liver:? Within normal limits. ? Gallbladder:? No wall thickening or pericholecystic fluid.? Positive sonographic Rayo sign.? 2 non mobile gallstones are seen in the region of the gallbladder neck, measuring up to 1.5 cm. ? CBD:? 3.9 mm. ? Pancreas:? Visualized portions are within normal limits. ? IMPRESSION:? Cholelithiasis. ? ? Dictated by: Nacho Andres M.D. on 01/05/2022 at 11:38 ? ? Approved by: Nacho Andres M.D. on 01/05/2022 at 11:39 ? MDM Narrative Medical decision making narrative: Patient has known cholelithiasis diagnosed on October [address] At that time she had elevated bilirubin and liver enzymes. Today bilirubin is 1.5 previously was 4.5 with normal liver enzymes. Patient has no headache or behavioral changes she is having abdominal pain with vomiting triggered by fried food. This seems to be related to gallbladder and cholelithiasis but no signs. Bilirubin is still mildly elevated today but significantly better than previously. Ultrasound does show persistent cholelithiasis. She says she followed up with a general surgeon his said she did not want to do surgery because gallbladder was right near her [employer]ING[employer] O[employer] shunt. She has appointment with GI doctor in a few weeks. At this time she is tolerating oral fluids, she overall appears better. Discharge Plan Departure Patient Disposition: Home Clinical Impression: Gallbladder pain, Vomiting Instructions: DI for Vomiting -- Adult Activity Restrictions/Additional Instructions: *You have been diagnosed with vomiting gallbladder pain *What to do: Please avoid high fat and fried foods. This is likely contributing to your pain and vomiting. Please follow-up with GI as scheduled *Continue to take medications as directed Zofran 4 mg every 8 hours if needed for nausea vomiting--> SENT TO [facility] *Follow up with your primary care provider in 2-3 days or call [phone] *Return to ER if you should have persistent vomiting increasing pain[or] any new, worsening or concerning symptoms Prescriptions: New ondansetron 4 mg tablet,disintegrating 4 mg PO Q8H PRN (Reason: nausea and vomiting) Qty: 10 0RF No Action sertraline 50 MG tablet 50 mg PO QDAY Qty: 30 0RF doxycycline hyclate 100 MG capsule 100 mg PO BID Qty: 14 0RF norethindrone ac-eth estradiol [Loestrin 1.04/03 ()] 1.5-30 mg-mcg tablet 1 tab PO Q DAY Qty: 3 4RF lisinopril 40 mg tablet 0RF Label Comments: TAKE 1 TABLET BY MOUTH EVERY DAY FOR HIGH BLOOD PRESSURE lisinopril 40 mg tablet 0RF Label Comments: TAKE 1 TABLET BY MOUTH EVERY DAY FOR HIGH BLOOD PRESSURE promethazine 12.5 mg tablet 12.5 mg PO BID PRN (Reason: nausea and vomiting) Qty: 14 0RF oxycodone-acetaminophen [Percocet] 5-325 mg tablet 1 tab PO Q8H PRN (Reason: pain) Qty: 10 0RF
[2022-01-05] MEDS: KETOROLAC 30 MG/ML VIAL 15 MG IV (09:14)
[2022-01-05] MEDS: ONDANSETRON 4 MG/2 ML INJ IV (09:14)
[2022-01-05] MEDS: SODIUM CHLORIDE 0.9% 1,000 ML 1000 ML IV (09:14)
--- NOTE | 2022-01-05 09:26 | PC.NURSE ---
Pt had a stroke 4 years ago,since then she has had generalized pain. Pt saw pain specialist and she was referred to GI. She has an appointment at the end of the month with GI.
[2022-01-05 09:37] LABS: Add Manual Diff / Slide Review NO; Basophils Absolute Auto 0 /uL (0-100); Basophils Percent Auto 0.3 % (0-2); Eosinophils Absolute Auto 0 /uL (0-450); Hemoglobin 14.3 g/dL (12.0-16.0); Lymphocytes Absolute Auto 900 /uL (1100-4500); Lymphocytes Percent Auto 8.6 % (25-40); Mean Corpuscular HGB Conc 34.1 % (30-36); Mean Corpuscular Hemoglobin 30.1 PG (26-34); Mean Corpuscular Volume 88.3 fL (80-100); Monocytes Absolute Auto 300 /uL (0-900); Monocytes Percent Auto 2.5 % (3-14); Neutrophils Absolute Auto 8900 /uL (1500-7000); Neutrophils Percent Auto 88.6 % (50-75); Platelet Count 283 X10^3/uL (150-400); Red Blood Cell Count 4.75 X10^6/uL (4.0-5.2); Red Cell Distribution Width 15.1 % (11.6-14.8); White Blood Cell Count 10.1 X10^3/uL (4.5-11.0)
[2022-01-05 09:48] LABS: Alanine Aminotransferase 30 IU/L (<35); Albumin 5.3 g/dL (3.5-5.0); Albumin Globulin Ratio 1.4 (1.0-2.8); Alkaline Phosphatase 81 U/L (38-126); Aspartate Aminotransferase 36 IU/L (14-36); Bilirubin Total 1.5 mg/dL (0.2-1.3); Blood Urea Nitrogen 11 mg/dL (7-17); Calcium 10.2 mg/dL (8.4-10.2); Carbon Dioxide 22 mmol/L (22-32); Chloride 101 mmol/L (98-107); Estimated Glomerular Filt Rate > 60.0 mL/min (>60); Globulin 3.8 g/dL (1.7-4.1); Glucose 152 mg/dL (70-100); HEMOLYSIS < 15 (0-50); Lipase 133 U/L (23-300); Potassium 3.4 mmol/L (3.4-5.1); Sodium 137 mmol/L (137-145); Total Protein 9.1 g/dL (6.3-8.2)
--- NOTE | 2022-01-05 10:34 | DI.US.S_ITS ---
PROCEDURE: US ABDOMEN LIMITED INDICATIONS: ELEVATED BILIRUBIN; KNOWN GALLSTONES TECHNIQUE: Real-time focused scanning was performed of the abdomen, with image documentation. COMPARISON: [facility], CT, CT ABDOMEN PELVIS W CON, 10/17/2021, 19:23. [facility], US, US ABDOMEN LIMITED, 10/17/2021, 20:44. FINDINGS: Liver: Within normal limits. Gallbladder: No wall thickening or pericholecystic fluid. Positive sonographic Rayo sign. 2 non mobile gallstones are seen in the region of the gallbladder neck, measuring up to 1.5 cm. CBD: 3.9 mm. Pancreas: Visualized portions are within normal limits. IMPRESSION: Cholelithiasis. Dictated by: Nacho Andres M.D. on 01/05/2022 at 11:38 Approved by: Nacho Andres M.D. on 01/05/2022 at 11:39
[2022-01-05 11:00] VITALS: BP 130/87; PULSE 89; RESP 17; O2SAT 99
[2022-01-05 11:36] VITALS: PULSE 88; RESP 16; O2SAT 97
== END 2022-01-05 11:54 | disposition home or self-care (01) ==
PROVIDERS: Emergency Provider Emergency Medicine
DX: K80.20 Calculus of gallbladder without cholecystitis without obstruction (principal); F17.200 Nicotine dependence, unspecified, uncomplicated
CPT/HCPCS: 36415; 76705; 80053; 81003; 81025; 83690; 85025; 96361; 96374; 96375; 99284; J1885; J2405

== ENCOUNTER 2022-01-15 17:13 | Emergency (ER) | payer MEDICAID, SELFPAY ==
[2022-01-15 17:21] VITALS: BP 156/104; PULSE 87; RESP 16; TEMP 36.3; O2SAT 98; BMI 26.2
[2022-01-15 17:41] LABS: Add Manual Diff / Slide Review NO; Basophils Absolute Auto 0 /uL (0-100); Basophils Percent Auto 0.5 % (0-2); Eosinophils Absolute Auto 300 /uL (0-450); Eosinophils Percent Auto 4.1 % (2-4); Hematocrit 43.2 % (36-46); Hemoglobin 14.7 g/dL (12.0-16.0); Lymphocytes Absolute Auto 2400 /uL (1100-4500); Lymphocytes Percent Auto 29.1 % (25-40); Mean Corpuscular HGB Conc 34.1 % (30-36); Mean Corpuscular Hemoglobin 30.1 PG (26-34); Mean Corpuscular Volume 88.4 fL (80-100); Monocytes Absolute Auto 400 /uL (0-900); Monocytes Percent Auto 4.5 % (3-14); Neutrophils Absolute Auto 5100 /uL (1500-7000); Neutrophils Percent Auto 61.8 % (50-75); Platelet Count 288 X10^3/uL (150-400); Red Blood Cell Count 4.89 X10^6/uL (4.0-5.2); Red Cell Distribution Width 14.3 % (11.6-14.8); White Blood Cell Count 8.3 X10^3/uL (4.5-11.0)
[2022-01-15 17:52] LABS: Alanine Aminotransferase 28 IU/L (<35); Albumin 5.1 g/dL (3.5-5.0); Albumin Globulin Ratio 1.4 (1.0-2.8); Alkaline Phosphatase 77 U/L (38-126); Aspartate Aminotransferase 32 IU/L (14-36); BUN Creatinine Ratio 11.1 (6-22); Bilirubin Total 0.9 mg/dL (0.2-1.3); Blood Urea Nitrogen 6 mg/dL (7-17); Carbon Dioxide 21 mmol/L (22-32); Chloride 104 mmol/L (98-107); Estimated Glomerular Filt Rate > 60.0 mL/min (>60); Globulin 3.7 g/dL (1.7-4.1); Glucose 85 mg/dL (70-100); HEMOLYSIS < 15 (0-50); Lipase 160 U/L (23-300); Potassium 3.8 mmol/L (3.4-5.1); Sodium 137 mmol/L (137-145); Total Protein 8.8 g/dL (6.3-8.2)
[2022-01-15] MEDS: ONDANSETRON 4 MG/2 ML INJ IV ×2 (18:35→21:01)
[2022-01-15] MEDS: HYDROMORPHONE 0.5 MG INJ IV (18:35)
[2022-01-15 18:37] VITALS: BP 133/86; PULSE 71; O2SAT 98
--- NOTE | 2022-01-15 18:44 | ED_ITS ---
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 Patient patient states that she has had persistent nausea for some time she normally takes Zofran daily but states she ate some bad food this week and had some beer and made everything 10 times worse than normal. She states she has had persistent vomiting for several months. She has low energy. She denies fevers or chills. No headaches. No vision changes. No shortness of breath. No chest pain or pressure. She had some pain epigastrically with vomiting but not currently. She typically has constipation 2nd her Zofran. She takes this daily. She had a bowel movement this morning she states she had a small amount of blood in her stool but that typically happens when she is constipated. Patient states that she had her shunt placed with stroke and seizure in 2018. She had some issues with the settings in 2019. Since then she has been referred to GI, she sees Neurology and sees Dr. Marcum at [facility] for her shunt. Related Data Home Medications Medication Instructions Recorded Confirmed lisinopril 40 mg tablet 11/09/18 lisinopril 40 mg tablet 11/09/18 Previous Rx's Medication Instructions Recorded sertraline 50 mg tablet 50 mg PO QDAY #30 tab 08/10/16 doxycycline hyclate 100 mg capsule 100 mg PO BID #14 cap 01/22/18 norethindrone acetate 1.5 1 tab PO Q DAY #3 pac 05/07/18 mg-ethinyl estradiol 30 mcg tablet (Loestrin) oxycodone-acetaminophen 5 mg-325 1 tab PO Q8H PRN #10 tab 10/17/21 mg tablet (Percocet) promethazine 12.5 mg tablet 12.5 mg PO BID PRN #14 tab 10/17/21 ondansetron 4 mg disintegrating 4 mg PO Q8H PRN #10 tab 01/05/22 tablet ondansetron 4 mg disintegrating 4 mg PO Q6H PRN #14 tab 01/15/22 tablet Allergies Allergy/AdvReac Type Severity Reaction Status Date / Time Sulfa (Sulfonamide Allergy Unknown Verified 01/15/22 17:25 Antibiotics) [SULFA (SULFONAMIDE ANTIBIOTICS)] Review of Systems Review of Systems ROS Unobtainable: All systems reviewed & are unremarkable except as noted in HPI and below Patient History Medical History (Updated 01/15/22 @ 20:19 by Alexandra Epstein DO) Hypertension Social History Smoking Status: Former smoker Smoking Status: Former smoker alcohol intake frequency: 0-2 drinks per day Substance Use Type: marijuana Exam Narrative Exam Narrative: GENERAL: Alert and oriented x three, HEENT: Head normocephalic, atraumatic, EOMI, pupils reactive, face symmetric, moist mucous membranes NECK: Supple, full range of motion CARDIOVASCULAR: Regular rate and rhythm without murmurs, rubs or gallops. RESPIRATORY: Breath sounds equal bilaterally, no wheezes rales or rhonchi. ABDOMEN: Soft, nontender. Normoactive bowel sounds all 4 quadrants. No g uarding or rebound, rigidity, no mass. Patient has incision in her abdomen consistent with COMMUNITY SERVICE DIRECTOR shunt. : No CVA tenderness EXTREMITIES: Normal range of motion, no clubbing or edema. Neurovascularly intact NEUROLOGICAL: Cranial nerves II through XII grossly intact. Moving all extremities SKIN: Warm, dry, no petechiae, no rashes or lesions. Initial Vital Signs Initial Vital Signs: Vital Signs Temperature 97.4 F L 01/15/22 17:21 Pulse Rate 87 01/15/22 17:21 Respiratory Rate 16 01/15/22 17:21 Blood Pressure 156/104 H 01/15/22 17:21 Pulse Oximetry 98 01/15/22 17:21 Scores GCS Fili coma scale eye opening: Spontaneous [place] coma scale verbal response: Orientated Fili coma scale motor response: Obey commands [place] coma scale total score: 15 Course Orders Ordered: ED Orders 01/15/22 18:57 US abdomen limited Stat Discontinued Medications Hydromorphone HCl (Hydromorphone 0.5 Mg Inj) 0.5 mg IV NOW ONE Stop: 01/15/22 18:27 Last Admin: 01/15/22 18:35 Dose: 0.5 mg Documented by: NIYAH Sodium Chloride (Normal Saline 0.9%) 1,000 mls @ 1,000 mls/hr IV BOLUS ONE Stop: 01/15/22 19:56 Last Admin: 01/15/22 19:03 Dose: 1,000 mls/hr Documented by: NIYAH Ketorolac Tromethamine (Ketorolac 30 Mg/Ml Vial) 15 mg IV NOW ONE Stop: 01/15/22 18:58 Last Admin: 01/15/22 19:02 Dose: 15 mg Documented by: NIYAH Ketorolac Tromethamine (Ketorolac 30 Mg/Ml Vial) 15 mg IV NOW ONE Stop: 01/15/22 20:21 Last Admin: 01/15/22 21:00 Dose: 15 mg Documented by: NIYAH Ondansetron HCl (Ondansetron 4 Mg/2 Ml Inj) 4 mg IV NOW ONE Stop: 01/15/22 18:29 Last Admin: 01/15/22 18:35 Dose: 4 mg Documented by: NIYAH Ondansetron HCl (Ondansetron 4 Mg Odt Prepack) 1 bottle MISC SEEINSTR ONE Stop: 01/15/22 20:21 Last Admin: 01/15/22 21:01 Dose: 1 bottle Documented by: NIYAH Ondansetron HCl (Ondansetron 4 Mg/2 Ml Inj) 4 mg IV NOW ONE Stop: 01/15/22 20:21 Last Admin: 01/15/22 21:01 Dose: 4 mg Documented by: NIYAH Reevaluation(s) Reevaluation #1: On recheck patient is feeling better but ask for additional Toradol. She will in 15 mg additional 15 was given. She states she is out of her Zofran so was given a prepack for this evening as well. She states she is feeling better and would like to return home. She does have gallstones she is tender over that site but no thickening, no fever other changes. Time: 20:21 Vital Signs Vital signs: Vital Signs - 8 hr 01/15/22 19:05 01/15/22 19:30 01/15/22 21:08 Pulse Rate 66 77 72 Respiratory Rate 14 Blood Pressure 143/97 H 140/98 H 124/77 Pulse Oximetry 98 100 99 MDM - Abdominal Pain Lab Data Result diagrams: 01/15/22 17:26 01/15/22 17:26 Labs: Lab Results 01/15/22 01/15/22 Range/Units 17:26 17:26 WBC 8.3 (4.5-11.0) X10^3/uL RBC 4.89 (4.0-5.2) X10^6/uL Hgb 14.7 (12.0-16.0) g/dL Hct 43.2 (36-46) % MCV 88.4 (80-100) fL MCH 30.1 (26-34) PG MCHC 34.1 (30-36) % RDW 14.3 (11.6-14.8) % Plt Count 288 (150-400) X10^3/uL Neut % (Auto) 61.8 (50-75) % Lymph % (Auto) 29.1 (25-40) % [place] % (Auto) 4.5 (3-14) % Eos % (Auto) 4.1 H (2-4) % Baso % (Auto) 0.5 (0-2) % Neut # (Auto) 5100 (1796-7799) /uL Lymph # (Auto) 2400 (7348-1058) /uL [place] # (Auto) 400 (0-900) /uL Eos # (Auto) 300 (0-450) /uL Baso # (Auto) 0 (0-100) /uL Sodium 137 (137-145) mmol/L Potassium 3.8 (3.4-5.1) mmol/L Chloride 104 (98-107) mmol/L Carbon Dioxide 21 L (22-32) mmol/L BUN 6 L (7-17) mg/dL Creatinine 0.54 (0.52-1.04) mg/dL Estimated GFR > 60.0 (>60) mL/min BUN/Creatinine Ratio 11.1 (6-22) Glucose 85 (70-100) mg/dL Calcium 9.0 (8.4-10.2) mg/dL Total Bilirubin 0.9 (0.2-1.3) mg/dL AST 32 (14-36) IU/L ALT 28 (<35) IU/L Alkaline Phosphatase 77 (38-126) U/L Total Protein 8.8 H (6.3-8.2) g/dL Albumin 5.1 H (3.5-5.0) g/dL Globulin 3.7 (1.7-4.1) g/dL Albumin/Globulin Ratio 1.4 (1.0-2.8) Lipase 160 (23-300) U/L Point of care testing: Point of Care Testing Test Results Negative Urine Dip Bedside Urine Glucose Negative Bedside Urine Bilirubin - Negative Bedside Urine Ketone - Negative Urine Specific [place] 1.010 Bedside Urine Occult Blood - Negative Bedside Urine pH 6.0 Bedside Urine Protein - Negative Bedside Urine Urobilinogen - Negative Bedside Urine Nitrite - Negative Bedside Urine Leukocytes - Negative Esterase ECG Data Attestation: I personally reviewed and interpreted this ECG as follows: Prior ECG tracings: available for review Interpretation: Sinus rhythm rate of 69 MT 172 QRS is 72 QTC of 430. No acute ST changes appreciated. Patient does have prior from 03/31/2018. [facility] Narrative Medical decision making narrative: This is a 41-year-old female comes in with complaint of abdominal discomfort, nausea and vomiting with history of gallstones present. Patient's labs, abdominal exam and imaging are reassuring except for stones that are present she is tender over the gallbladder on ultrasound but not on physical exam. Patient is afebrile. Other causes were also considered including shunt malfunction. Patient likely would benefit from having her gallbladder removed but still needs cardiac clearance and does not have changes that would necessitate emergent removal tonight. Discharge Plan Departure Patient Disposition: Home Clinical Impression: Gallstones, Nausea & vomiting Instructions: DI for Gallstones Activity Restrictions/Additional Instructions: Follow-up with gastroenterology for evaluation but you may need to have your gallbladder removed. You would benefit from EGD and colonoscopy. You do have gallstones on imaging today but no signs of infection to your gallbladder. Your labs are reassuring. I would recommend pursuing medical clearance and cardiac clearance for future surgery. You may take your home medications as prescribed. Prescription sent to [facility]. Please return for fevers, new or worsening abdominal, back or flank pain, headaches, new vision changes, persistent vomiting, persistent black or bloody stools or other new or concerning symptoms. Prescriptions: New ondansetron 4 mg tablet,disintegrating 4 mg PO Q6H PRN (Reason: nausea and vomiting) Qty: 14 0RF No Action sertraline 50 MG tablet 50 mg PO QDAY Qty: 30 0RF doxycycline hyclate 100 MG capsule 100 mg PO BID Qty: 14 0RF norethindrone ac-eth estradiol [Loestrin 1.5 (21)] 1.5-30 mg-mcg tablet 1 tab PO Q DAY Qty: 3 4RF lisinopril 40 mg tablet 0RF Label Comments: TAKE 1 TABLET BY MOUTH EVERY DAY FOR HIGH BLOOD PRESSURE lisinopril 40 mg tablet 0RF Label Comments: TAKE 1 TABLET BY MOUTH EVERY DAY FOR HIGH BLOOD PRESSURE promethazine 12.5 mg tablet 12.5 mg PO BID PRN (Reason: nausea and vomiting) Qty: 14 0RF oxycodone-acetaminophen [Percocet] 5-325 mg tablet 1 tab PO Q8H PRN (Reason: pain) Qty: 10 0RF ondansetron 4 mg tablet,disintegrating 4 mg PO Q8H PRN (Reason: nausea and vomiting) Qty: 10 0RF Referrals: Florencia Donovan ARNP [Primary Care Provider] -
--- NOTE | 2022-01-15 18:57 | DI.US.S_ITS ---
PROCEDURE: US ABDOMEN LIMITED INDICATIONS: N/V; KNOWN GALLSTONES TECHNIQUE: Real-time scanning was performed of the abdominal and retroperitoneal organs, with image documentation. COMPARISON: [facility], US, US ABDOMEN LIMITED, 01/05/2022, 10:43. FINDINGS: Liver: Liver is normal in size and homogeneous in echotexture. Gallbladder: Gallbladder contains non mobile gallstones. No wall thickening. Negative for pericholecystic fluid. There is an abnormal sonographic Rayo's sign. Biliary ducts: Intrahepatic bile ducts are non-dilated. Extrahepatic bile duct caliber measures 5 mm. Normal is 6-7 mm or less in diameter, or 10 mm or less post-cholecystectomy. Pancreas: Visualized portions of the pancreas are sonographically normal. Miscellaneous: No free abdominal fluid. IMPRESSION: Cholelithiasis with sonographic evidence for acute cholecystitis. Dictated by: Miguel Adkins M.D. on 01/15/2022 at 19:54 Approved by: Miguel Adkins M.D. on 01/15/2022 at 19:56
[2022-01-15] MEDS: KETOROLAC 30 MG/ML VIAL 15 MG IV ×2 (19:02→21:00)
[2022-01-15] MEDS: SODIUM CHLORIDE 0.9% 1,000 ML 1000 ML IV (19:03)
[2022-01-15 19:05] VITALS: BP 143/97; PULSE 66; O2SAT 98
--- NOTE | 2022-01-15 19:12 | PC.NURSE ---
patient estimated to have urinated less than a cup of urine for each elimination. She has had 3 eliminations so far.
[2022-01-15 19:30] VITALS: BP 140/98; PULSE 77; O2SAT 100
[2022-01-15] MEDS: ONDANSETRON 4 MG ODT PREPACK 1 BOTTLE MISC (21:01)
[2022-01-15 21:08] VITALS: BP 124/77; PULSE 72; RESP 14; O2SAT 99
--- NOTE | 2022-01-21 14:55 | PC.NURSE ---
late entry: IV fluid: normal saline stopped at 01/15/22 at 2100
== END 2022-01-15 21:10 | disposition home or self-care (01) ==
PROVIDERS: Emergency Medicine; Emergency Provider Emergency Medicine; PCP Nurse Practitioner
DX: R11.2 Nausea with vomiting, unspecified (principal); K80.80 Other cholelithiasis without obstruction; I10 Essential (primary) hypertension; Z87.891 Personal history of nicotine dependence
CPT/HCPCS: 36415; 76705; 80053; 81003; 81025; 83690; 85025; 93005; 93010; 96374; 96375; 96376; 99284; J1170; J1885; J2405

== ENCOUNTER 2022-11-02 18:30 | Emergency (ER) | payer OTHER, MEDICAID, SELFPAY ==
[2022-11-02 18:40] VITALS: BP 108/68; PULSE 55; RESP 18; TEMP 36.1; O2SAT 100; BMI 24.7
[2022-11-02 19:17] VITALS: BP 99/70; PULSE 61; O2SAT 99
[2022-11-02 21:39] VITALS: BP 118/73; PULSE 67; RESP 22; O2SAT 98
--- NOTE | 2022-11-02 22:30 | PC.NURSE ---
I went to get this patient from the waiting room after several attempts by fellow staff. Patient requested a wheelchair. I went to get the chair and returned to the patient. patient stated I cannot move my arms or legs at all. I attempted to clarify this with this with the patient if they were needing to be fully lifted. Patient began swearing at me and sat up on the couch she was laying. Patient self transferred into the wheelchair immediately. Patient continued to swear at me. I asked the patient not to talk to me that way and that we were here to help her and wheeled her to room 8 bed. Locked the chair into place and undid the feet holders and the patient instantly self transferred to the bed. I placed one rail up and attached the call light. Patient refused any attempt to take vitals. Patient refused warm blanket.
--- NOTE | 2022-11-02 22:42 | ED_ITS ---
HPI - Medical Clearance <Darvin Yanez DO - Last Filed: 11/03/22 21:33> General Chief complaint: Medical Clearance Stated complaint: Seizures Time Seen by Provider: 11/02/22 21:51 Source: patient Mode of arrival: Ambulatory History of Present Illness HPI Narrative: Patient is a 42-year-old female. Was eventually brought back to the exam room after waiting in the waiting room for several hours. She is here for evaluation of what she describes as potential seizures. She is having tingling in both of her hands and in her legs. 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 She does see a neurologist for this or next appointment is November 13. She stated in triage that she was having problems speaking although it was noted by the triage nurse that her language/voice was clear. She was also calling from the waiting room stating that she could not move her legs although she was walking around the room. Is reported in her past medical history that she has had strokes in the past and also seizures in the past. She thinks she is been having constant strokes for the past 2 months. She also admitted that recently she spent 2 weeks in assisted. It was difficult for her to state exactly when this was. At 1 point she stated that she was released on October 04. She does have a significant alcohol history. In triage she stated that she has not drank in 3 days but during my evaluation she stated that it has been closer to 7 days. She states she has withdrawn from alcohol in the past. She does report that she is seeing individuals and also hearing voices. She answers yes to many of the review of system questions to include chest discomfort and nausea and diarrhea and shortness of breath and headache and vision changes. States she feels like she is dehydrated. Related Information Home Medications Medication Instructions Recorded Confirmed lisinopril 40 mg tablet 11/09/18 lisinopril 40 mg tablet 11/09/18 Previous Rx's Medication Instructions Recorded sertraline 50 mg tablet 50 mg PO QDAY #30 tabs 08/10/16 doxycycline hyclate 100 mg capsule 100 mg PO BID #14 caps 01/22/18 norethindrone acetate 1.5 1 tab PO Q DAY ##3 05/07/18 mg-ethinyl estradiol 30 mcg tablet (Loestrin) oxycodone-acetaminophen 5 mg-325 1 tab PO Q8H PRN pain #10 tabs 10/17/21 mg tablet (Percocet) promethazine 12.5 mg tablet 12.5 mg PO BID PRN nausea and 10/17/21 vomiting #14 tabs ondansetron 4 mg disintegrating 4 mg PO Q8H PRN nausea and 01/05/22 tablet vomiting #10 tabs ondansetron 4 mg disintegrating 4 mg PO Q6H PRN nausea and 01/15/22 tablet vomiting #14 tabs olanzapine 10 mg tablet (Zyprexa) 10 mg PO BEDTIME #30 tabs 11/03/22 Allergies Allergy/AdvReac Type Severity Reaction Status Date / Time Sulfa (Sulfonamide Allergy Unknown Verified 01/15/22 17:25 Antibiotics) [SULFA (SULFONAMIDE ANTIBIOTICS)] Review of Systems <Darvin Yanez DO - Last Filed: 11/03/22 21:33> Review of Systems ROS Unobtainable: All systems reviewed & are unremarkable except as noted in HPI and below Patient History <DO Mohinder Kevin Last Filed: 11/03/22 21:33> Medical History Alcohol abuse Hydrocephalus Hypertension Social History Smoking Status: Former smoker Smoking Status: Former smoker alcohol intake frequency: 0-2 drinks per day Substance Use Type: marijuana Exam <DO Mohinder Kevin Last Filed: 11/03/22 21:33> Initial Vital Signs Initial Vital Signs: Vital Signs Temperature 96.9 F L 11/02/22 18:40 Pulse Rate 55 L 11/02/22 18:40 Respiratory Rate 18 11/02/22 18:40 Blood Pressure 108/68 11/02/22 18:40 Pulse Oximetry 100 11/02/22 18:40 Oxygen Delivery Method 11/02/22 18:40 Const General: No acute distress and No ill appearing HENIL Head: normal to inspection and normocephalic Eyes Pupils: PERRL Resp Effort & Inspection: normal respiratory effort Auscultation: clear to auscultation bilaterally Cardio Rate: regular rate Rhythm: regular rhythm GI Inspection: normal to inspection Palpation: soft Skin General: no rashes or lesions noted Neuro General: patient alert, patient awake, gait normal and moves all extremities Speech: speech normal Gait: normal gait Motor: muscle tone normal throughout Extrem General: normal to inspection and capillary refill normal Psych Speech and Movement: restless Mood: anxious mood, manic mood and irritable mood Affect: animated and irritable affect Attitude: cooperative <Navjot Bar DO - Last Filed: 11/07/22 09:19> Initial Vital Signs Initial Vital Signs: Vital Signs Temperature 96.9 F L 11/02/22 18:40 Pulse Rate 55 L 11/02/22 18:40 Respiratory Rate 18 11/02/22 18:40 Blood Pressure 108/68 11/02/22 18:40 Pulse Oximetry 100 11/02/22 18:40 Oxygen Delivery Method 11/02/22 18:40 MDM - Medical Clearance <Darvin Yanez, DO - Last Filed: 11/03/22 21:33> Lab Data Result diagrams: 11/03/22 05:35 11/03/22 05:35 Labs: Lab Results 11/03/22 11/03/22 11/03/22 Range/Units 05:35 05:35 05:35 WBC 5.2 (4.5-11.0) X10^3/uL RBC 4.45 (4.0-5.2) X10^6/uL Hgb 13.3 (12.0-16.0) g/dL Hct 39.4 (36-46) % MCV 88.4 (80-100) fL MCH 30.0 (26-34) PG MCHC 33.9 (30-36) % RDW 15.1 H (11.6-14.8) % Plt Count 212 (150-400) X10^3/uL Neut % (Auto) 40.7 L (50-75) % Lymph % (Auto) 46.1 H (25-40) % [place] % (Auto) 6.5 (3-14) % Eos % (Auto) 5.8 H (2-4) % Baso % (Auto) 0.9 (0-2) % Neut # (Auto) 2100 (3127-1973) /uL Lymph # (Auto) 2400 (7474-5190) /uL [place] # (Auto) 300 (0-900) /uL Eos # (Auto) 300 (0-450) /uL Baso # (Auto) 0 (0-100) /uL Sodium 139 (137-145) mmol/L Potassium 3.7 (3.4-5.1) mmol/L Chloride 105 (98-107) mmol/L Carbon Dioxide 25 (22-32) mmol/L BUN 8 (7-17) mg/dL Creatinine 0.60 (0.52-1.04) mg/dL Estimated GFR > 60 (>60) mL/min BUN/Creatinine Ratio 13.3 (6-22) Glucose 88 (70-100) mg/dL Calcium 8.5 (8.4-10.2) mg/dL Total Bilirubin 1.2 (0.2-1.3) mg/dL AST 24 (14-36) IU/L ALT 17 (<35) IU/L Alkaline Phosphatase 79 (38-126) U/L Total Protein 7.2 (6.3-8.2) g/dL Albumin 4.1 (3.5-5.0) g/dL Globulin 3.1 (1.7-4.1) g/dL Albumin/Globulin Ratio 1.3 (1.0-2.8) Lipase 83 (23-300) U/L TSH (0.47-4.68) uIU/mL Serum , Qual (Negative) Urine Color Urine Appearance Urine pH (4.5-8.0) Ur Specific [place] (1.000-1.035) Urine Protein (Negative) Urine Glucose (UA) (Negative) g/dL Urine Ketones (NEGATIVE) Urine Occult Blood (Negative) Urine Nitrate (Negative) Urine Bilirubin (NEGATIVE) Urine Urobilinogen (0.2) E.U./dL Ur Leukocyte Esterase (NEGATIVE) Urine RBC (0-5/HPF) Urine WBC (0-5/HPF) Ur Squamous Epith Cells (0-5/HPF) Amorphous Sediment Urine Bacteria (None) Ur Culture Indicated? U Opiates 300ng/mL cut (Negative) Ur Oxycodone Screen (Negative) Urine Methadone Screen (Negative) Ur Barbiturates Screen (Negative) U Tricyclic Antidepress (Negative) Ur Phencyclidine Scrn (Negative) Ur Amphetamines Screen (Negative) U Methamphetamines Scrn (Negative) Ur MDMA Scrn (Ecstasy) (Negative) U Benzodiazepines Scrn (Negative) Urine Cocaine Screen (Negative) U Marijuana (THC) Screen (Negative) Ethyl Alcohol < 10 ( - 10) mg/dL SARS-CoV-2 (PCR) (Negative) 11/03/22 11/03/22 11/03/22 Range/Units 05:35 05:35 11:10 WBC (4.5-11.0) X10^3/uL RBC (4.0-5.2) X10^6/uL Hgb (12.0-16.0) g/dL Hct (36-46) % MCV (80-100) fL MCH (26-34) PG MCHC (30-36) % RDW (11.6-14.8) % Plt Count (150-400) X10^3/uL Neut % (Auto) (50-75) % Lymph % (Auto) (25-40) % [place] % (Auto) (3-14) % Eos % (Auto) (2-4) % Baso % (Auto) (0-2) % Neut # (Auto) (3801-5120) /uL Lymph # (Auto) (6335-4737) /uL [place] # (Auto) (0-900) /uL Eos # (Auto) (0-450) /uL Baso # (Auto) (0-100) /uL Sodium (137-145) mmol/L Potassium (3.4-5.1) mmol/L Chloride (98-107) mmol/L Carbon Dioxide (22-32) mmol/L BUN (7-17) mg/dL Creatinine (0.52-1.04) mg/dL Estimated GFR (>60) mL/min BUN/Creatinine Ratio (6-22) Glucose (70-100) mg/dL Calcium (8.4-10.2) mg/dL Total Bilirubin (0.2-1.3) mg/dL AST (14-36) IU/L ALT (<35) IU/L Alkaline Phosphatase (38-126) U/L Total Protein (6.3-8.2) g/dL Albumin (3.5-5.0) g/dL Globulin (1.7-4.1) g/dL Albumin/Globulin Ratio (1.0-2.8) Lipase (23-300) U/L TSH 1.02 (0.47-4.68) uIU/mL Serum , Qual Negative (Negative) Urine Color Urine Appearance Urine pH (4.5-8.0) Ur Specific [place] (1.000-1.035) Urine Protein (Negative) Urine Glucose (UA) (Negative) g/dL Urine Ketones (NEGATIVE) Urine Occult Blood (Negative) Urine Nitrate (Negative) Urine Bilirubin (NEGATIVE) Urine Urobilinogen (0.2) E.U./dL Ur Leukocyte Esterase (NEGATIVE) Urine RBC (0-5/HPF) Urine WBC (0-5/HPF) Ur Squamous Epith Cells (0-5/HPF) Amorphous Sediment Urine Bacteria (None) Ur Culture Indicated? U Opiates 300ng/mL cut (Negative) Ur Oxycodone Screen (Negative) Urine Methadone Screen (Negative) Ur Barbiturates Screen (Negative) U Tricyclic Antidepress (Negative) Ur Phencyclidine Scrn (Negative) Ur Amphetamines Screen (Negative) U Methamphetamines Scrn (Negative) Ur MDMA Scrn (Ecstasy) (Negative) U Benzodiazepines Scrn (Negative) Urine Cocaine Screen (Negative) U Marijuana (THC) Screen (Negative) Ethyl Alcohol ( - 10) mg/dL SARS-CoV-2 (PCR) Negative (Negative) 11/03/22 11/03/22 Range/Units 11:13 11:13 WBC (4.5-11.0) X10^3/uL RBC (4.0-5.2) X10^6/uL Hgb (12.0-16.0) g/dL Hct (36-46) % MCV (80-100) fL MCH (26-34) PG MCHC (30-36) % RDW (11.6-14.8) % Plt Count (150-400) X10^3/uL Neut % (Auto) (50-75) % Lymph % (Auto) (25-40) % [place] % (Auto) (3-14) % Eos % (Auto) (2-4) % Baso % (Auto) (0-2) % Neut # (Auto) (2463-1646) /uL Lymph # (Auto) (7451-2299) /uL [place] # (Auto) (0-900) /uL Eos # (Auto) (0-450) /uL Baso # (Auto) (0-100) /uL Sodium (137-145) mmol/L Potassium (3.4-5.1) mmol/L Chloride (98-107) mmol/L Carbon Dioxide (22-32) mmol/L BUN (7-17) mg/dL Creatinine (0.52-1.04) mg/dL Estimated GFR (>60) mL/min BUN/Creatinine Ratio (6-22) Glucose (70-100) mg/dL Calcium (8.4-10.2) mg/dL Total Bilirubin (0.2-1.3) mg/dL AST (14-36) IU/L ALT (<35) IU/L Alkaline Phosphatase (38-126) U/L Total Protein (6.3-8.2) g/dL Albumin (3.5-5.0) g/dL Globulin (1.7-4.1) g/dL Albumin/Globulin Ratio (1.0-2.8) Lipase (23-300) U/L TSH (0.47-4.68) uIU/mL Serum , Qual (Negative) Urine Color Yellow Urine Appearance Clear Urine pH 6.0 (4.5-8.0) Ur Specific [place] 1.015 (1.000-1.035) Urine Protein Negative (Negative) Urine Glucose (UA) Negative (Negative) g/dL Urine Ketones Trace H (NEGATIVE) Urine Occult Blood Negative (Negative) Urine Nitrate Negative (Negative) Urine Bilirubin Negative (NEGATIVE) Urine Urobilinogen 0.2 (0.2) E.U./dL Ur Leukocyte Esterase Negative (NEGATIVE) Urine RBC None seen (0-5/HPF) Urine WBC 0-1/hpf (0-5/HPF) Ur Squamous Epith Cells 5-10 /hpf H (0-5/HPF) Amorphous Sediment 1+ Urine Bacteria Occasional (0-1) (None) Ur Culture Indicated? Cult not indicated U Opiates 300ng/mL cut Negative (Negative) Ur Oxycodone Screen Negative (Negative) Urine Methadone Screen Negative (Negative) Ur Barbiturates Screen Negative (Negative) U Tricyclic Antidepress Negative (Negative) Ur Phencyclidine Scrn Negative (Negative) Ur Amphetamines Screen Negative (Negative) U Methamphetamines Scrn Negative (Negative) Ur MDMA Scrn (Ecstasy) Negative (Negative) U Benzodiazepines Scrn Positive H (Negative) Urine Cocaine Screen Negative (Negative) U Marijuana (THC) Screen Positive H (Negative) Ethyl Alcohol ( - 10) mg/dL SARS-CoV-2 (PCR) (Negative) MDM Narrative Medical decision making narrative: It is somewhat difficult to couple the ascertain why the patient is here in the emergency department. She states she is having tingling in her hands and her feet. She describes this is bilateral. She also answers yes to most of the review of systems questions. She is very tangential in her thought process but is alert oriented x3. She does describe both auditory and visual hallucinations. She also initially stated that she was very anxious. She was very upset that she had to wait in the waiting room for several hours. She thought that her initial presenting symptoms were not being taken seriously. Tried to reassure the patient that she did have a proper triage and she was seen according to this. I do have low suspicion for stroke. Low suspicion for seizure. She is obviously very anxious and she initially agreed to oral Ativan. She was given a dose of oral Ativan and she did sleep for several hours. Initially I was hoping that this would improve her symptoms. I tried to r eassure her that she was not having a stroke or seizure. After awaking of several hours of sleep she stated that she was still having both auditory visual hallucinations. She did seem somewhat calmer. Had further discussions with her about her alcohol use. I am still uncertain as to when her last drink was. It could have been relatively recently or potentially several days ago. I am also unsure as to when she spent 14 days in assisted. She stated that she did withdrawal from alcohol while she was in assisted although she could not expand on this further. I once again reassured her that she was not having a stroke or seizure. We discussed potentially sending to alcohol detox and she was open for this. Alcohol withdrawal is still a possibility as well as psychosis, intoxication, increased intracranial pressure, Wernicke's encephalopathy and others. She does not have the ataxia nor the ocular motor findings consistent with Wernicke's. Given her lack of improvement after sleep and Ativan we will obtain blood samples and head CT given her history of WINDOWS [employer] shunt. Social work consult was placed. Care turned over to Dr. Bar to follow-up and disposition. [0700] (Yosvany) Patient received in sign out from [Renata]. I have reviewed the clinical course and attempted to examine/interview, however patient currently sleeping. Dr yanez: Re assumed care of patient. Social work has been involved. There are no beds available for alcohol detox. Patient does report that she is still having hallucinations but has no other signs of withdrawal symptoms. Will place her on Zyprexa. She was given resources from social work. She was given return precautions. <Navjot Bar, - Last Filed: 11/07/22 09:19> Lab Data Labs: Lab Results 11/03/22 11/03/22 11/03/22 Range/Units 05:35 05:35 05:35 WBC 5.2 (4.5-11.0) X10^3/uL RBC 4.45 (4.0-5.2) X10^6/uL Hgb 13.3 (12.0-16.0) g/dL Hct 39.4 (36-46) % MCV 88.4 (80-100) fL MCH 30.0 (26-34) PG MCHC 33.9 (30-36) % RDW 15.1 H (11.6-14.8) % Plt Count 212 (150-400) X10^3/uL Neut % (Auto) 40.7 L (50-75) % Lymph % (Auto) 46.1 H (25-40) % [place] % (Auto) 6.5 (3-14) % Eos % (Auto) 5.8 H (2-4) % Baso % (Auto) 0.9 (0-2) % Neut # (Auto) 2100 (1291-7832) /uL Lymph # (Auto) 2400 (8923-7238) /uL [place] # (Auto) 300 (0-900) /uL Eos # (Auto) 300 (0-450) /uL Baso # (Auto) 0 (0-100) /uL Sodium 139 (137-145) mmol/L Potassium 3.7 (3.4-5.1) mmol/L Chloride 105 (98-107) mmol/L Carbon Dioxide 25 (22-32) mmol/L BUN 8 (7-17) mg/dL Creatinine 0.60 (0.52-1.04) mg/dL Estimated GFR > 60 (>60) mL/min BUN/Creatinine Ratio 13.3 (6-22) Glucose 88 (70-100) mg/dL Calcium 8.5 (8.4-10.2) mg/dL Total Bilirubin 1.2 (0.2-1.3) mg/dL AST 24 (14-36) IU/L ALT 17 (<35) IU/L Alkaline Phosphatase 79 (38-126) U/L Total Protein 7.2 (6.3-8.2) g/dL Albumin 4.1 (3.5-5.0) g/dL Globulin 3.1 (1.7-4.1) g/dL Albumin/Globulin Ratio 1.3 (1.0-2.8) Lipase 83 (23-300) U/L TSH (0.47-4.68) uIU/mL Serum , Qual (Negative) Urine Color Urine Appearance Urine pH (4.5-8.0) Ur Specific [place] (1.000-1.035) Urine Protein (Negative) Urine Glucose (UA) (Negative) g/dL Urine Ketones (NEGATIVE) Urine Occult Blood (Negative) Urine Nitrate (Negative) Urine Bilirubin (NEGATIVE) Urine Urobilinogen (0.2) E.U./dL Ur Leukocyte Esterase (NEGATIVE) Urine RBC (0-5/HPF) Urine WBC (0-5/HPF) Ur Squamous Epith Cells (0-5/HPF) Amorphous Sediment Urine Bacteria (None) Ur Culture Indicated? U Opiates 300ng/mL cut (Negative) Ur Oxycodone Screen (Negative) Urine Methadone Screen (Negative) Ur Barbiturates Screen (Negative) U Tricyclic Antidepress (Negative) Ur Phencyclidine Scrn (Negative) Ur Amphetamines Screen (Negative) U Methamphetamines Scrn (Negative) Ur MDMA Scrn (Ecstasy) (Negative) U Benzodiazepines Scrn (Negative) Urine Cocaine Screen (Negative) U Marijuana (THC) Screen (Negative) Ethyl Alcohol < 10 ( - 10) mg/dL SARS-CoV-2 (PCR) (Negative) 11/03/22 11/03/22 11/03/22 Range/Units 05:35 05:35 11:10 WBC (4.5-11.0) X10^3/uL RBC (4.0-5.2) X10^6/uL Hgb (12.0-16.0) g/dL Hct (36-46) % MCV (80-100) fL MCH (26-34) PG MCHC (30-36) % RDW (11.6-14.8) % Plt Count (150-400) X10^3/uL Neut % (Auto) (50-75) % Lymph % (Auto) (25-40) % [place] % (Auto) (3-14) % Eos % (Auto) (2-4) % Baso % (Auto) (0-2) % Neut # (Auto) (8122-0003) /uL Lymph # (Auto) (8516-6665) /uL [place] # (Auto) (0-900) /uL Eos # (Auto) (0-450) /uL Baso # (Auto) (0-100) /uL Sodium (137-145) mmol/L Potassium (3.4-5.1) mmol/L Chloride (98-107) mmol/L Carbon Dioxide (22-32) mmol/L BUN (7-17) mg/dL Creatinine (0.52-1.04) mg/dL Estimated GFR (>60) mL/min BUN/Creatinine Ratio (6-22) Glucose (70-100) mg/dL Calcium (8.4-10.2) mg/dL Total Bilirubin (0.2-1.3) mg/dL AST (14-36) IU/L ALT (<35) IU/L Alkaline Phosphatase (38-126) U/L Total Protein (6.3-8.2) g/dL Albumin (3.5-5.0) g/dL Globulin (1.7-4.1) g/dL Albumin/Globulin Ratio (1.0-2.8) Lipase (23-300) U/L TSH 1.02 (0.47-4.68) uIU/mL Serum , Qual Negative (Negative) Urine Color Urine Appearance Urine pH (4.5-8.0) Ur Specific [place] (1.000-1.035) Urine Protein (Negative) Urine Glucose (UA) (Negative) g/dL Urine Ketones (NEGATIVE) Urine Occult Blood (Negative) Urine Nitrate (Negative) Urine Bilirubin (NEGATIVE) Urine Urobilinogen (0.2) E.U./dL Ur Leukocyte Esterase (NEGATIVE) Urine RBC (0-5/HPF) Urine WBC (0-5/HPF) Ur Squamous Epith Cells (0-5/HPF) Amorphous Sediment Urine Bacteria (None) Ur Culture Indicated? U Opiates 300ng/mL cut (Negative) Ur Oxycodone Screen (Negative) Urine Methadone Screen (Negative) Ur Barbiturates Screen (Negative) U Tricyclic Antidepress (Negative) Ur Phencyclidine Scrn (Negative) Ur Amphetamines Screen (Negative) U Methamphetamines Scrn (Negative) Ur MDMA Scrn (Ecstasy) (Negative) U Benzodiazepines Scrn (Negative) Urine Cocaine Screen (Negative) U Marijuana (THC) Screen (Negative) Ethyl Alcohol ( - 10) mg/dL SARS-CoV-2 (PCR) Negative (Negative) 11/03/22 11/03/22 Range/Units 11:13 11:13 WBC (4.5-11.0) X10^3/uL RBC (4.0-5.2) X10^6/uL Hgb (12.0-16.0) g/dL Hct (36-46) % MCV (80-100) fL MCH (26-34) PG MCHC (30-36) % RDW (11.6-14.8) % Plt Count (150-400) X10^3/uL Neut % (Auto) (50-75) % Lymph % (Auto) (25-40) % [place] % (Auto) (3-14) % Eos % (Auto) (2-4) % Baso % (Auto) (0-2) % Neut # (Auto) (2669-8328) /uL Lymph # (Auto) (3126-0645) /uL [place] # (Auto) (0-900) /uL Eos # (Auto) (0-450) /uL Baso # (Auto) (0-100) /uL Sodium (137-145) mmol/L Potassium (3.4-5.1) mmol/L Chloride (98-107) mmol/L Carbon Dioxide (22-32) mmol/L BUN (7-17) mg/dL Creatinine (0.52-1.04) mg/dL Estimated GFR (>60) mL/min BUN/Creatinine Ratio (6-22) Glucose (70-100) mg/dL Calcium (8.4-10.2) mg/dL Total Bilirubin (0.2-1.3) mg/dL AST (14-36) IU/L ALT (<35) IU/L Alkaline Phosphatase (38-126) U/L Total Protein (6.3-8.2) g/dL Albumin (3.5-5.0) g/dL Globulin (1.7-4.1) g/dL Albumin/Globulin Ratio (1.0-2.8) Lipase (23-300) U/L TSH (0.47-4.68) uIU/mL Serum , Qual (Negative) Urine Color Yellow Urine Appearance Clear Urine pH 6.0 (4.5-8.0) Ur Specific [place] 1.015 (1.000-1.035) Urine Protein Negative (Negative) Urine Glucose (UA) Negative (Negative) g/dL Urine Ketones Trace H (NEGATIVE) Urine Occult Blood Negative (Negative) Urine Nitrate Negative (Negative) Urine Bilirubin Negative (NEGATIVE) Urine Urobilinogen 0.2 (0.2) E.U./dL Ur Leukocyte Esterase Negative (NEGATIVE) Urine RBC None seen (0-5/HPF) Urine WBC 0-1/hpf (0-5/HPF) Ur Squamous Epith Cells 5-10 /hpf H (0-5/HPF) Amorphous Sediment 1+ Urine Bacteria Occasional (0-1) (None) Ur Culture Indicated? Cult not indicated U Opiates 300ng/mL cut Negative (Negative) Ur Oxycodone Screen Negative (Negative) Urine Methadone Screen Negative (Negative) Ur Barbiturates Screen Negative (Negative) U Tricyclic Antidepress Negative (Negative) Ur Phencyclidine Scrn Negative (Negative) Ur Amphetamines Screen Negative (Negative) U Methamphetamines Scrn Negative (Negative) Ur MDMA Scrn (Ecstasy) Negative (Negative) U Benzodiazepines Scrn Positive H (Negative) Urine Cocaine Screen Negative (Negative) U Marijuana (THC) Screen Positive H (Negative) Ethyl Alcohol ( - 10) mg/dL SARS-CoV-2 (PCR) (Negative) Imaging Data CT scan - head: Radiologist's Impression: [address] [address] [address] Scan Report Signed Patient: Lucrecia Rich MR#: [id number] : 1980 Acct:[id number] Age/Sex: 42 / F Date of Service: 11/03/22 Loc: ED Accession Number: [id number] ?? Procedure: CT head/brain wo con Ordering Provider: Lanker,Darvin D.O. PROCEDURE:? CT HEAD/BRAIN WO CON ? INDICATIONS:? WINDOWS [employer] shunt, hydrocephalus, having hallucinations ? TECHNIQUE:? Noncontrast 4.5 mm thick angled axial sections acquired from the foramen magnum to the vertex, with coronal and sagittal reformats.? For radiation dose reduction, the following was used:? automated exposure control, adjustment of mA and/or kV according to patient size.? ? COMPARISON:? [facility], CT, CT HEAD WITHOUT CONTRAST, 03/20/2022, 13:30. ? FINDINGS:? Image quality:? Excellent.? ? CSF spaces:? Basal cisterns are patent.? No extra-axial fluid collections.? Mild ventriculomegaly unchanged compared to 03/20/2022.? No transtentorial herniation.? Right ventriculostomy catheter with tip near the foramen of [place]. ? Brain:? No midline shift.? No intracranial masses or hemorrhage.? Dickson-white mat ter interface is normal.? ? Skull and face:? Calvarium and visualized facial bones are intact, without suspicious lesions.? ? Sinuses:? Visualized sinuses and mastoids are clear.? ? IMPRESSION:? 1. No acute intracranial infarct or hemorrhage. 2. Mild hydrocephalus with right frontal ventriculostomy catheter in satisfactory position, unchanged compared to prior CT on 03/20/2022. ? ?Dictated by: Maciej Jaramillo M.D. on 11/03/2022 at 8:16 ? ? Approved by: Maciej Jaramillo M.D. on 11/03/2022 at 8:18 ? MDM Narrative Medical decision making narrative: It is somewhat difficult to couple the ascertain why the patient is here in the emergency department. She states she is having tingling in her hands and her feet. She describes this is bilateral. She also answers yes to most of the review of systems questions. She is very tangential in her thought process but is alert oriented x3. She does describe both auditory and visual hallucinations. She also initially stated that she was very anxious. She was very upset that she had to wait in the waiting room for several hours. She thought that her initial presenting symptoms were not being taken seriously. Tried to reassure the patient that she did have a proper triage and she was seen according to this. I do have low suspicion for stroke. Low suspicion for s eizure. She is obviously very anxious and she initially agreed to oral Ativan. She was given a dose of oral Ativan and she did sleep for several hours. Initially I was hoping that this would improve her symptoms. I tried to reassure her that she was not having a stroke or seizure. After awaking of several hours of sleep she stated that she was still having both auditory visual hallucinations. She did seem somewhat calmer. Had further discussions with her about her alcohol use. I am still uncertain as to when her last drink was. It could have been relatively recently or potentially several days ago. I am also unsure as to when she spent 14 days in assisted. She stated that she did with drawal from alcohol while she was in assisted although she could not expand on this further. I once again reassured her that she was not having a stroke or seizure. We discussed potentially sending to alcohol detox and she was open for this. Alcohol withdrawal is still a possibility as well as psychosis, intoxication, increased intracranial pressure, Wernicke's encephalopathy and others. She does not have the ataxia nor the ocular motor findings consistent with Wernicke's. Given her lack of improvement after sleep and Ativan we will obtain blood samples and head CT given her history of WINDOWS [employer]IT[employer] shunt. Social work consult was placed. Care turned over to Dr. Bar to follow-up and disposition. [0700] (Yosvany) Patient received in sign out from [Renata]. I have reviewed the clinical course and attempted to examine/interview, however patient currently sleeping. Discharge Plan Departure Patient Disposition: Home Clinical Impression: Alcohol abuse, Anxiety Instructions: DI for Anxiety -- Adult Activity Restrictions/Additional Instructions: For your discussions with the social media community manager unfortunately there are no beds available for alcohol detox/rehab. I do recommend that you contact your primary care doctor for a follow-up. I also recommend that you use the resources that were given to you by the social media community manager for outpatient alcohol treatment. Return to the emergency department for any new symptoms. Prescriptions: New olanzapine [Zyprexa] 10 mg tablet 10 mg PO BEDTIME Qty: 30 0RF No Action sertraline 50 MG tablet 50 mg PO QDAY Qty: 30 0RF doxycycline hyclate 100 MG capsule 100 mg PO BID Qty: 14 0RF norethindrone ac-eth estradiol [Loestrin 1.5/30 (21)] 1.5-30 mg-mcg tablet 1 tab PO Q DAY Qty: 3 4RF lisinopril 40 mg tablet Label Comments: TAKE 1 TABLET BY MOUTH EVERY DAY FOR HIGH BLOOD PRESSURE lisinopril 40 mg tablet Label Comments: TAKE 1 TABLET BY MOUTH EVERY DAY FOR HIGH BLOOD PRESSURE ondansetron 4 mg tablet,disintegrating 4 mg PO Q6H PRN (Reason: nausea and vomiting) Qty: 14 0RF promethazine 12.5 mg tablet 12.5 mg PO BID PRN (Reason: nausea and vomiting) Qty: 14 0RF oxycodone-acetaminophen [Percocet] 5-325 mg tablet 1 tab PO Q8H PRN (Reason: pain) Qty: 10 0RF ondansetron 4 mg tablet,disintegrating 4 mg PO Q8H PRN (Reason: nausea and vomiting) Qty: 10 0RF Referrals: Florencia Donovan ARNP [Primary Care Provider] - Stand Alone Forms: Patient Portal/API
--- NOTE | 2022-11-02 23:00 | PC.NURSE ---
pt tearful - states that she has numbness and tingling to her extremities - states that she is unable to stand or sit up due to the numbness and tingling - states that she had a stroke 2 years ago - extremely labile with emotions - moves all extremities with strength - even bilaterally - fine dexterity noted - able to grasp small objects
--- NOTE | 2022-11-02 23:15 | PC.NURSE ---
in to medicate pt - tolerated well - states that she has difficulty swallowing - easily swallowed the medication and juice
[2022-11-02] MEDS: LORazepam 0.5 MG TABLET 1 MG PO (23:17)
[2022-11-03] VITALS (15 sets, daily range): BP systolic 101–118; BP diastolic 69–74; PULSE 50–67; RESP 16–20; O2SAT 97–100
--- NOTE | 2022-11-03 | PC.NURSE ---
Resting quietly in NAD - no needs voiced - room darkened - warm blankets provided for comfort
--- NOTE | 2022-11-03 01:00 | PC.NURSE ---
No changes in pt status at this time
--- NOTE | 2022-11-03 02:00 | PC.NURSE ---
Resting quietly with eyes closed - PWD with respirations equal and unlabored bilaterally - no needs voiced
--- NOTE | 2022-11-03 03:00 | PC.NURSE ---
No changes in pt status
--- NOTE | 2022-11-03 04:00 | PC.NURSE ---
No changes in pt status
--- NOTE | 2022-11-03 04:58 | PC.NURSE ---
PIN MACHINE TENDER: patient used call light to tell me I'm seeing my friends around me. I said Oh, well you have no one around you--- patient said I'm not stupid. Tell the doctor I'm seeing my friends around me. I told her I would.
--- NOTE | 2022-11-03 05:00 | PC.NURSE ---
CIWA assessment difficult to perform as the patient is not clear and changes the information she gives - states that she is having numbness and tingling to her extremities and that she is unable to move or get up - moves all extremities evenly with deliberate motion - fine dexterity noted - able to readjust self in bed without assistance - moving legs around without concern - the patient perseverates on hallucinations consistently telling the RN every time she is at the bedside that she is seeing things that aren't there - states I saw you tying gloves around my arm but when I looked you weren't there then states that she believes the RN's are talking about her outside of her room - acutely aware that she is having hallucinations but then states that she believes she is having a stroke then changes the story and states that she would like detox - when asked how much she drinks she states that she only drinks on the weekends and does not drink during the week - when asked if she uses any drugs she states that she only takes the medication prescribed for her - no obvious signs of withdrawl noted - lying quiet and calm on the stretcher - easily sleeps
--- NOTE | 2022-11-03 05:00 | PC.NURSE ---
Pt yelling in the room - clapping hands - states that she believes the nurses are sitting outside of her room talking about her - reassured that is not happening
--- NOTE | 2022-11-03 05:07 | DI.CT.S_ITS ---
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 For radiation dose reduction, the following was used: automated exposure control, adjustment of mA and/or kV according to patient size. COMPARISON: [facility], CT, CT HEAD WITHOUT CONTRAST, 03/20/2022, 13:30. FINDINGS: Image quality: Excellent. CSF spaces: Basal cisterns are patent. No extra-axial fluid collections. Mild ventriculomegaly unchanged compared to 03/20/2022. No transtentorial herniation. Right ventriculostomy catheter with tip near the foramen of Monro. Brain: No midline shift. No intracranial masses or hemorrhage. Dickson-white matter interface is normal. Skull and face: Calvarium and visualized facial bones are intact, without suspicious lesions. Sinuses: Visualized sinuses and mastoids are clear. IMPRESSION: 1. No acute intracranial infarct or hemorrhage. 2. Mild hydrocephalus with right frontal ventriculostomy catheter in satisfactory position, unchanged compared to prior CT on 03/20/2022. Dictated by: Maciej Jaramillo M.D. on 11/03/2022 at 8:16 Approved by: Maciej Jaramillo M.D. on 11/03/2022 at 8:18
[2022-11-03 05:54] LABS: Add Manual Diff / Slide Review NO; Basophils Absolute Auto 0 /uL (0-100); Basophils Percent Auto 0.9 % (0-2); Eosinophils Absolute Auto 300 /uL (0-450); Eosinophils Percent Auto 5.8 % (2-4); Hematocrit 39.4 % (36-46); Hemoglobin 13.3 g/dL (12.0-16.0); Lymphocytes Absolute Auto 2400 /uL (1100-4500); Lymphocytes Percent Auto 46.1 % (25-40); Mean Corpuscular HGB Conc 33.9 % (30-36); Mean Corpuscular Volume 88.4 fL (80-100); Monocytes Absolute Auto 300 /uL (0-900); Monocytes Percent Auto 6.5 % (3-14); Neutrophils Absolute Auto 2100 /uL (1500-7000); Neutrophils Percent Auto 40.7 % (50-75); Platelet Count 212 X10^3/uL (150-400); Red Blood Cell Count 4.45 X10^6/uL (4.0-5.2); Red Cell Distribution Width 15.1 % (11.6-14.8); White Blood Cell Count 5.2 X10^3/uL (4.5-11.0)
[2022-11-03 06:01] LABS: Alanine Aminotransferase 17 IU/L (<35); Albumin 4.1 g/dL (3.5-5.0); Albumin Globulin Ratio 1.3 (1.0-2.8); Alkaline Phosphatase 79 U/L (38-126); Aspartate Aminotransferase 24 IU/L (14-36); BUN Creatinine Ratio 13.3 (6-22); Bilirubin Total 1.2 mg/dL (0.2-1.3); Blood Urea Nitrogen 8 mg/dL (7-17); Calcium 8.5 mg/dL (8.4-10.2); Carbon Dioxide 25 mmol/L (22-32); Chloride 105 mmol/L (98-107); Estimated Glomerular Filt Rate > 60 mL/min (>60); Ethanol (ETOH) < 10 mg/dL; Globulin 3.1 g/dL (1.7-4.1); Glucose 88 mg/dL (70-100); HEMOLYSIS < 15 (0-50); Lipase 83 U/L (23-300); Potassium 3.7 mmol/L (3.4-5.1); Sodium 139 mmol/L (137-145); Total Protein 7.2 g/dL (6.3-8.2)
[2022-11-03 06:20] LABS: Pregnancy Test Serum,Qual Negative (Negative)
--- NOTE | 2022-11-03 06:35 | PC.NURSE ---
To CT via stretcher with tech
--- NOTE | 2022-11-03 06:48 | PC.NURSE ---
Returns to the room from radiology via stretcher
[2022-11-03 06:52] LABS: Thyroid Stimulating Hormone 1.02 uIU/mL (0.47-4.68)
[2022-11-03] MEDS: THIAMINE 200 MG in SODIUM CHLORIDE 0.9% 100 ML 408 MG IV (07:10)
--- NOTE | 2022-11-03 07:35 | PC.NURSE ---
Report to dayshift RN team
--- NOTE | 2022-11-03 07:48 | PC.NURSE ---
Pt lying supine in bed snoring. NAD. thiamine completed. additional ativan being held at this time.
--- NOTE | 2022-11-03 11:11 | PC.NURSE ---
OOB ambulated to BR
[2022-11-03 11:21] LABS: Appearance Urine UA CLEAR; Bilirubin Urine UA NEGATIVE (NEGATIVE); Color Urine UA YELLOW; Glucose Urine UA NEGATIVE (Negative); Ketones Urine UA TRACE (NEGATIVE); Leukocyte Esterase Urine UA NEGATIVE (NEGATIVE); Nitrite Urine UA NEGATIVE (Negative); Occult Blood Urine UA NEGATIVE (Negative); Protein Urine UA NEGATIVE (Negative); Specific Gravity Urine UA 1.015 (1.000-1.035); Urobilinogen Urine UA 0.2 E.U./dL (0.2)
[2022-11-03 11:29] LABS: RBC Urine None Seen (0-5/HPF); Squamous Epithelial Cell Urine 5-10 /HPF (0-5/HPF); WBC Urine 0-1/HPF (0-5/HPF)
[2022-11-03 11:30] LABS: Amorphous Sediment Urine 1+; Bacteria Urine Occasional (0-1); Culture Indicated Urine Cult Not Indicated
[2022-11-03 11:31] LABS: UR Morphine/Opiate cutoff 300 Negative (Negative); Ur Creatinine Normal (Normal); Ur Specific Gravity Normal (Normal); Urine Amphetamines Negative (Negative); Urine Barbiturates Negative (Negative); Urine Benzodiazepines Positive (Negative); Urine Cocaine Negative (Negative); Urine MDMA Negative (Negative); Urine Methadone Negative (Negative); Urine Methamphetamines Negative (Negative); Urine Oxycodone Negative (Negative); Urine Phencyclidine Negative (Negative); Urine Tetrahydrocannabinol Positive (Negative); Urine Tricyclic Antidepressant Negative (Negative); Urine pH Normal (Normal)
[2022-11-03 11:34] LABS: COVID19 -Nasal RAPID Negative (Negative)
--- NOTE | 2022-11-03 13:49 | CM.SWNOTE ---
FINANCIAL SERVICES ASSOCIATE Note This FINANCIAL SERVICES ASSOCIATE requested for consult to assess needs of this 42 yo who arrived yesterday complaining of potential seizure activity, numbness, hallucinations, inability to talk. Notes indicate patient's presentation was contrary to her report, patient was able to articulate clearly and was able to stand and walk while waiting for an ER bed to become available BAL insignificant, tox + for THC and benzos According to Dr Bar, patient was medicated with ativan at 0500 and has been sleeping since, patient is medically cleared for DC from the ER and Dr Bar requesting FINANCIAL SERVICES ASSOCIATE input on dispo options Met w/patient in ER [id number], patient sleeping upon entry into her room, states she cannot sit up. Lights turned on and eventually with much encouragement, patient sat up independently. Lunch tray set up for patient and she began to eat independently. Patient explains she has hx of stroke and has some short term memory loss, no signs of this during this interview Patient is a [facility] member and owns a home in [place] with her son. Patient states her son kicked her out and she has been staying at her cousin's house in [place] and also sleeping in her car. Patient denies having [facility] resources available to her for housing/group home. Patient admits to drinking two apple ciders daily and a 6 pack of cider on the weekend when I libertarian. Patient drinks to the point of blacking out on the weekend. Patient feels yesterdays presentation to the ER was alcohol w/d and states she has never experienced hallucinations, states I was seeing bugs Patient endorses hx of drug rehab in [place] and in [place] near [place]. patient denies current illicit drug use Patient denies hx of seizures during etoh withdrawal, states she takes an anti-seizure medication her neurologist prescribed her for pain not for seizures Patient is hopeful this FINANCIAL SERVICES ASSOCIATE can secure detox on her behalf today, states she doesn't like what alcohol is doing to her body. Patient denies hallucinations, SI/HI today and plans to return home with family if FINANCIAL SERVICES ASSOCIATE cannot secure detox from the ER Patient tells this FINANCIAL SERVICES ASSOCIATE she has a drug counselor at [facility]; if no detox is secured today, patient should be encouraged upon discharge to follow up at [facility] Updated Shanell Erwin, ER FINANCIAL SERVICES ASSOCIATE who will plan to place calls to detox facilities [facility]
--- NOTE | 2022-11-03 20:17 | CM.SWNOTE ---
DATA SERVICES DEVELOPER Note DATA SERVICES DEVELOPER calls [facility] twice throughout day- full [facility] - full [facility] - Full DATA SERVICES DEVELOPER calls [facility] intake for female detox bed and it is reported that they have beds and can review patient. DATA SERVICES DEVELOPER faxes clinicals for review. [facility] intake calls DATA SERVICES DEVELOPER and states that they currently do not have an appropriate bed for patient and had concerns about patient's hx of seizures. DATA SERVICES DEVELOPER reviews EMR and endorses that there is no current concern of seizures for patient. Intake reports they will call ED if a bed opens up for patient. DATA SERVICES DEVELOPER reviews this with ED provider, DATA SERVICES DEVELOPER to review this with patient. Patient will need taxi voucher transportation upon d/c. DATA SERVICES DEVELOPER to provide patient with outpatient resources and encourage patient to f/u with [facility]. Plan: Patient likely to d/c to home with taxi, patient to f/u with outpatient services. Shanell Erwin, SACK CLEANER
[2022-11-03] MEDS: OLANZapine ODT 10 MG TAB PO (21:26)
--- NOTE | 2022-11-03 21:31 | PC.NURSE ---
Patient declined to sign discharge paperwork.
== END 2022-11-03 21:36 | disposition home or self-care (01) ==
PROVIDERS: Emergency Provider Emergency Medicine; PCP Nurse Practitioner
DX: F10.10 Alcohol abuse, uncomplicated (principal); F41.9 Anxiety disorder, unspecified; R44.1 Visual hallucinations; R44.0 Auditory hallucinations; Z20.822 Contact with and (suspected) exposure to COVID-19
CPT/HCPCS: 36415; 70450; 80053; 80305; 80320; 81001; 83690; 84443; 84703; 85025; 87635; 96360; 99284; C9803